=== PATIENT | female | born 1950 | race Caucasian/White ===

== ENCOUNTER → 2017-08-09 | Outpatient (CLI) | payer BC ==
--- NOTE | 2017-08-09 19:04 | US ---
EXAMINATION TYPE: US transvaginal DATE OF EXAM: 08/09/2017 COMPARISON: CT 2010 CLINICAL HISTORY: Other ovaian cyst right side N83.291. Pt states ovarian cyst seen on outside MRI, p t not on HRT's TECHNIQUE: Transvaginal (TV). Date of LMP: Age 51 EXAM MEASUREMENTS: Uterus: 4.7 x 2.5 x 3.7 cm Endometrial Stripe: 0.3 cm 1. Uterus: Anteverted wnl, postmenopausal 2. Endometrium: wnl, postmenopausal 3. Right Ovary: Unable to visualize 4. Left Ovary: Unable to visualize 5. Bilateral Adnexa: Cystic mass right adnexa= 5.9 x 4.5 x 4.6 cm, most likely arising from right ov kristofer 6. Posterior cul-de-sac: wnl Probable right ovarian cyst IMPRESSION: 1. There is a large cystic mass in the right adnexa suggestive of a cystic mass which has a simple ap pearance. Given the large size is difficult to define the anatomy and confirm its a ovarian etiology, therefore, would recommend follow-up MRI of the pelvis.
== END | disposition home or self-care (01) ==
LOC: RADUSWWP 16:56
PROVIDERS: ATTEND Internal Medicine Geriatric Medicine
DX: R19.09 Other intra-abdominal and pelvic swelling, mass and lump (principal)
CPT/HCPCS: 76830

== ENCOUNTER → 2017-09-25 | Outpatient (CLI) | payer MEDICARE, BC ==
--- NOTE | 2017-09-25 19:03 | BD ---
EXAMINATION TYPE: MG DEXA axial skeleton. DATE OF EXAM: 09/25/2017 CLINICAL HISTORY: 67-year-old female osteoporosis Height: Weight: 165 FRAX RISK QUESTIONS: Alcohol (3 or more units per day): no Family History (Parent hip fracture): no Glucocorticoids (More than 3mos): no (Ex: prednisone, prednisolone, methylprednisolone, dexamethasone, and hydrocortisone). History of Fracture in Adulthood: yes, humerus about 20 years ago Secondary Osteoporosis: 1. Type 1 Diabetes: no 2. Hyperthyroidism: no 3. Menopause before 45: no 4. Malnutrition: no 5. Chronic liver disease: no Rheumatoid Arthritis: no Current Tobacco Use: no RISK FACTORS HISTORY OF: Family History of Osteoporosis: no Active: yes Diet low in dairy products/other sources of calcium: several times a week Postmenopausal woman: yes Take estrogen and/or progesterone medications: not now How long: hormonal contraceptives for about 10 years Lost more than 2 inches in height since high school: no Frequent falls: no Poor Health: no Hyperparathyroidism: no Adrenal Insufficiency: no MEDICATIONS: Prednisone or other steroids: no Thyroid Medications: no Osteoporosis Medications: no Additional Medications: blood pressure meds Additional History: EXAM MEASUREMENTS: Bone mineral densitometry was performed using the [employer]. Bone mineral density as measured about the Lumbar spine is: ----- L1-L4(G/cm2): 1.797 T Score Values are as follows: ----- L2: 7.4 ----- L3: 6.7 ----- L4: 3.4 ----- L1-L4: 5.1 Bone mineral density has: Increased 1.1% since study of: 08/07/2011 Bone mineral density about the R hip (g/cm2): 0.746 Bone mineral density about the L hip (g/cm2): 0.753 T Score values are as follows: -----R Neck: -2.1 -----L Neck: -2.1 -----R Total: -1.7 -----L Total: -1.9 Bone mineral density has: Decreased -17.5% since study of: 08/07/2011 IMPRESSION: Osteopenia (T Score between -2.5 and -1). There is slightly increased risk of fracture and the patient may be considered for treatment. Re-Screen 2-5 years. NOTE: T-SCORE=SD OF THE YOUNG ADULT MEAN.
--- NOTE | 2017-10-03 08:52 | MM ---
Reason for exam: screening (asymptomatic). Last mammogram was performed 4 years and 4 months ago. History: Patient is postmenopausal and had first child at age 35. Family history of breast cancer in mother. Physical Findings: A clinical breast exam by your physician is recommended on an annual basis and results should be correlated with mammographic findings. MG 3D Screening Mammo W/Cad Bilateral CC, MLO, and XCCL view(s) were taken. Prior study comparison: June 03, 2013, mammogram, performed at [facility]. September 20, 2010, mammogram, performed at [facility]. There are scattered fibroglandular densities. There are typically benign round calcifications in both breasts. There is no discrete abnormality. ASSESSMENT: Benign, BI-RAD 2 RECOMMENDATION: Routine screening mammogram of both breasts in 1 year.
== END | disposition home or self-care (01) ==
LOC: RADMAMWWP 10:00
PROVIDERS: ATTEND Internal Medicine Geriatric Medicine
DX: Z12.31 Encounter for screening mammogram for malignant neoplasm of breast (principal); M85.80 Other specified disorders of bone density and structure, unspecified site
CPT/HCPCS: 77063; 77067; 77080

== ENCOUNTER 2017-11-01 07:57 | Day surgery (SDC) | payer BC, MEDICARE ==
[2017-10-30 11:45] VITALS: BMI 30.2
[~2017-11-01 07:57] MED LIST: LACTATED RINGERS 1,000 ML IV SCH
[2017-11-01 08:38] VITALS: RESP 16; TEMP 97.6
[2017-11-01] MEDS ORDERED: LIDOCAINE 1% 20 ML VIAL (10MG/ML) FOR IV START INTRADERMA ONE (08:44)
[2017-11-01] MEDS ORDERED: LIDOCAINE 1% INJ 10MG/ML (20 ML MDV) ONE (09:35)
[2017-11-01] MEDS ORDERED: PROPOFOL 10 MG/ML 20 ML VIAL IV ONE (09:35)
--- NOTE | 2017-11-01 09:38 | P.GSHP ---
History of Present Illness H&P Date: 11/01/17 Chief Complaint: Anemia This is a 67-year-old female who presents today for EGD colonoscopy. Patient has had issues with anemia. Past Medical History Past Medical History: GERD/Reflux, Hypertension Additional Past Medical History / Comment(s): stomach ulcers x2 in 2016, current anemia History of Any Multi-Drug Resistant Organisms: None Reported Past Surgical History: Bariatric Surgery, Cholecystectomy, Orthopedic Surgery, Tonsillectomy Additional Past Surgical History / Comment(s): gastric sleeve in 2009, EGD, ORIF right arm Past Anesthesia/Blood Transfusion Reactions: Motion Sickness Smoking Status: Never smoker - Past Family History Mother Family Medical History: Cancer Additional Family Medical History / Comment(s): breast Medications and Allergies Home Medications Medication Instructions Recorded Confirmed Type Cholecalciferol [Vitamin D3] 2,000 unit PO BID 12/26/15 11/01/17 History Hydrochlorothiazide 25 mg PO DAILY 12/26/15 11/01/17 History L.acidoph,Paracasei, B.lactis 1 each PO DAILY 12/26/15 10/30/17 History [Probiotic] Magnesium 200 mg PO DAILY 12/26/15 11/01/17 History Oxybutynin Chloride 5 mg PO BID 12/26/15 11/01/17 History Potassium 99 mg PO DAILY 12/26/15 11/01/17 History Vitamin E 1,000 unit PO DAILY 12/26/15 11/01/17 History Omeprazole 40 mg PO AC-BRKFST #30 cap 01/10/16 11/01/17 Rx Calcium Carbonate [Calcium] 600 mg PO DAILY 10/30/17 11/01/17 History Celecoxib [CeleBREX] 200 mg PO DAILY 10/30/17 11/01/17 History Ferrous Sulfate [Feosol] 325 mg PO DAILY 10/30/17 10/30/17 History Allergies Allergy/AdvReac Type Severity Reaction Status Date / Time No Known Allergies Allergy Verified 10/30/17 11:42 Surgical - Exam Vital Signs Temp Pulse Resp BP Pulse Ox 97.6 F 66 16 167/94 98 11/01/17 08:36 11/01/17 08:36 11/01/17 08:36 11/01/17 08:36 11/01/17 08:36 - General well developed, no distress - Eyes PERRL - ENT normal pinna - Neck no masses - Respiratory normal expansion - Cardiovascular Rhythm: regular - Abdomen Abdomen: soft, non tender Assessment and Plan Assessment: Anemia. We'll perform EGD and colonoscopy.
--- NOTE | 2017-11-01 10:17 | P.OP ---
Date of Procedure: 11/01/17 Preoperative Diagnosis: Anemia Postoperative Diagnosis: Antral gastritis Normal colon No evidence of GI bleed Procedure(s) Performed: EGD Colonoscopy Anesthesia: MAC Surgeon: Carlos Manuel Cabrera Pathology: other (Antrum) Condition: stable Disposition: PACU Description of Procedure: Patient's placed on the endoscopy table in the lateral position. She received IV sedation. The gastroscope placed oropharynx passed in the esophagus and stomach. The patient a previous sleeve yesterday. Scope was then placed in the antrum and through the pylorus. The first second portion duodenum appeared normal. There is known to any inflammation or blood in the duodenum. The scope was then brought back and the antrum and this was minimal inflamed. A biopsies performed. The scope was then brought back through the gastric sleeve. There is known to any ulceration of the stomach. The GE junction was at 40 cm. The distal esophagus appeared normal. The proximal esophagus appeared normal. Scope was withdrawn for patient. Next digital rectal exam was performed which revealed no significant abnormalities. Flexible colonoscope was then placed patient anus passed throughout the entire colon. The ileocecal valve was visualized. The cecum, ascending and transverse colon appeared normal. The descending and; appeared normal. Scope withdrawn for patient.
[2017-11-01 10:53] VITALS: BP 179/81; PULSE 60
== END 2017-11-01 11:03 | disposition home or self-care (01) ==
LOC: ORWHC2ENDO 07:57
PROVIDERS: ATTEND Surgery
DX: K29.50 Unspecified chronic gastritis without bleeding (principal); D64.9 Anemia, unspecified; Z90.3 Acquired absence of stomach [part of]; Z98.84 Bariatric surgery status; K21.9 Gastro-esophageal reflux disease without esophagitis; I10 Essential (primary) hypertension; R42 Dizziness and giddiness; R60.9 Edema, unspecified; N39.42 Incontinence without sensory awareness; E55.9 Vitamin D deficiency, unspecified; E78.00 Pure hypercholesterolemia, unspecified; I45.9 Conduction disorder, unspecified; E66.3 Overweight; Z68.30 Body mass index [BMI] 30.0-30.9, adult; Z78.0 Asymptomatic menopausal state; Z79.899 Other long term (current) drug therapy
CPT/HCPCS: 88305; 45378; 43239; J2001; J2704

== ENCOUNTER 2018-06-22 22:26 | Emergency (ER) | payer BC ==
--- NOTE | 2018-06-22 23:22 | ED ---
General Adult HPI - General Source: patient, EMS, RN notes reviewed Mode of arrival: EMS Limitations: altered mental status <Smooth Moreira P - Last Filed: 06/23/18 20:08> <Minoo Alves P - Last Filed: 06/24/18 03:20> - General Chief complaint: Alcohol Stated complaint: ETOH - History of Present Illness Initial comments: 67-year-old female presents to the emergency department for a chief complaint of alcohol intoxication. Apparently patient's son called an ambulance on her. According to EMS patient did not want any treatment but they did not have anyone to release her to on scene so brought her to the emergency department. Patient states she would just like to go home. She states she is feeling fine. She states she drinks about 3 times per week. Patient denies any suicidal or homicidal thoughts. Patient does not want an IV. Patient has no other complaints at this time including shortness of breath, chest pain, abdominal pain, nausea or vomiting, headache, or visual changes. (Smooth Moreira) - Related Data Home Medications Medication Instructions Recorded Confirmed Hydrochlorothiazide 25 mg PO DAILY 12/26/15 06/22/18 Oxybutynin Chloride 5 mg PO BID 12/26/15 06/22/18 Celecoxib [CeleBREX] 200 mg PO BID 10/30/17 06/22/18 Gabapentin [Neurontin] 300 mg PO DAILY 06/22/18 06/22/18 Methocarbamol [Robaxin] 500 mg PO BID 06/22/18 06/22/18 Omeprazole 40 mg PO DAILY 06/22/18 06/22/18 amLODIPine [Norvasc] 5 mg PO DAILY 06/22/18 06/22/18 Allergies Allergy/AdvReac Type Severity Reaction Status Date / Time No Known Allergies Allergy Verified 06/22/18 23:15 Review of Systems ROS Other: All systems not noted in ROS Statement are negative. <Smooth Moreira P - Last Filed: 06/23/18 20:08> ROS Other: All systems not noted in ROS Statement are negative. <Minoo Alves P - Last Filed: 06/24/18 03:20> ROS Statement: Those systems with pertinent positive or pertinent negative responses have been documented in the HPI. Past Medical History Past Medical History: GERD/Reflux, Hypertension Additional Past Medical History / Comment(s): stomach ulcers x2 in 2016, current anemia History of Any Multi-Drug Resistant Organisms: None Reported Past Surgical History: Bariatric Surgery, Cholecystectomy, Orthopedic Surgery, Tonsillectomy Additional Past Surgical History / Comment(s): gastric sleeve in 2010, EGD, ORIF right arm Past Anesthesia/Blood Transfusion Reactions: Motion Sickness Past Psychological History: No Psychological Hx Reported Smoking Status: Never smoker Past Alcohol Use History: Occasional Past Drug Use History: None Reported - Past Family History Mother Family Medical History: Cancer Additional Family Medical History / Comment(s): breast <Smooth Moreira P - Last Filed: 06/23/18 20:08> General Exam Limitations: altered mental status General appearance: alert, in no apparent distress (Sitting up in bed well appearing, answering questions, alert, cooperative and responsive) Head exam: Present: atraumatic, normocephalic, normal inspection Eye exam: Present: normal appearance, PERRL, EOMI. Absent: scleral icterus, conjunctival injection, periorbital swelling ENT exam: Present: normal exam, normal oropharynx, mucous membranes moist, TM's normal bilaterally, normal external ear exam Neck exam: Present: normal inspection, full ROM. Absent: tenderness, meningismus, lymphadenopathy Respiratory exam: Present: normal lung sounds bilaterally. Absent: respiratory distress, wheezes, rales, rhonchi, stridor Cardiovascular Exam: Present: regular rate, normal rhythm, normal heart sounds. Absent: systolic murmur, diastolic murmur, rubs, gallop, clicks GI/Abdominal exam: Present: soft, normal bowel sounds. Absent: distended, tenderness, guarding, rebound, rigid Neurological exam: Present: alert, oriented X3, CN II-XII intact Psychiatric exam: Present: normal affect, normal mood. Absent: homicidal ideation, suicidal ideation Skin exam: Present: warm, dry, intact, normal color. Absent: rash <Smooth Moreira P - Last Filed: 06/23/18 20:08> Vital Signs 06/22/18 06/23/18 06/23/18 22:32 02:26 05:00 Temperature 98.3 F 97.9 F Pulse Rate 70 91 99 Respiratory 19 15 18 Rate Blood Pressure 150/111 145/90 150/98 O2 Sat by Pulse 98 98 94 L Oximetry Medical Decision Making <Smooth Moreira P - Last Filed: 06/23/18 20:08> <Minoo Alves - Last Filed: 06/24/18 03:20> - Medical Decision Making 67-year-old female with a past medical history of hypertension, stomach ulcers, anemia presents to the emergency department for a chief complaint of Alcohol intoxication. Patient did not want to come to the hospital but the EMS did not have anyone to release her to sober her to the emergency department. Patient is pleasant and cooperative. Patient states she is ready to go home. No evidence of withdrawals or shaking. Patient is drinking water here in the emergency department and resting comfortably. Patient does not want an IV at this time. ETOH 0.212. Patient will be held in the emergency department until sober and released. (Smooth Moreira) Patient was reevaluated at 5 AM. Patient able to ambulate to the restroom independently. Patient with clear speech. Patient is clinically sober and based on her breath alcohol is sober at this time. Patient discharged home patient reported she had the means to pay for a taxi for her ride home. (Minoo Alves) Disposition Is patient prescribed a controlled substance at d/c from ED?: No Time of Disposition: 23:20 <Smooth Moreira - Last Filed: 06/23/18 20:08> Is patient prescribed a controlled substance at d/c from ED?: No <Minoo Alves - Last Filed: 06/24/18 03:20> Clinical Impression: Alcoholic intoxication Disposition: HOME SELF-CARE Condition: Good Instructions (If sedation given, give patient instructions): Alcohol Intoxication (ED), Alcohol Withdrawal (ED) Additional Instructions: Please follow up with primary care in 1-2 days. Please return to the emergency department if you have any worsening symptoms. Referrals: Kaleb Nicolas MD [Primary Care Provider] - 1-2 days
[2018-06-23 05:01] VITALS: BP 150/98; PULSE 99; RESP 18; TEMP 97.9
== END 2018-06-23 05:15 | disposition home or self-care (01) ==
LOC: EC 22:26
DX: F10.129 Alcohol abuse with intoxication, unspecified (principal); K21.9 Gastro-esophageal reflux disease without esophagitis; I10 Essential (primary) hypertension; Z79.899 Other long term (current) drug therapy; Z98.84 Bariatric surgery status
CPT/HCPCS: 82075; 99284

== ENCOUNTER → 2022-09-17 | Outpatient (CLI) | payer MEDICARE, BC ==
[~2022-09-17] MED LIST changes: +DENOSUMAB 60 MG/ML 1 ML SYRINGE SQ NR; -LACTATED RINGERS 1,000 ML IV SCH
[2022-09-17 10:28] VITALS: BP 143/87; PULSE 90; RESP 16; TEMP 98
== END ==
LOC: PROCWHC3 10:11
PROVIDERS: ATTEND Internal Medicine Geriatric Medicine
DX: M81.0 Age-related osteoporosis without current pathological fracture (principal)
CPT/HCPCS: 96372; J0897

== ENCOUNTER → 2023-03-29 | Outpatient (CLI) | payer MEDICARE, BC ==
[2023-03-29 13:23] VITALS: BP 134/77; PULSE 109; RESP 15; TEMP 97.7
== END ==
LOC: PROCWHC3 12:58
PROVIDERS: ATTEND Internal Medicine Geriatric Medicine
DX: M81.0 Age-related osteoporosis without current pathological fracture (principal)
CPT/HCPCS: 96372; J0897

== ENCOUNTER 2023-09-23 12:57 | Day surgery (SDC) | payer MEDICARE ==
[2023-09-20 09:39] VITALS: BMI 25.6
[2023-09-23] MEDS: LACTATED RINGERS 1,000 ML IV SCH (13:38)
[2023-09-23 13:51] VITALS: RESP 16; TEMP 97.1
[2023-09-23] MEDS ORDERED: PROPOFOL 10 MG/ML 20 ML VIAL IV ONE (14:06)
[2023-09-23] MEDS ORDERED: LIDOCAINE 1% INJ 10MG/ML (20 ML MDV) ONE (14:06)
--- NOTE | 2023-09-23 14:11 | P.GSHP ---
History of Present Illness H&P Date: 09/23/23 Chief Complaint: GERD is a 73-year-old female placed of GERD. Patient presents for EGD. EGD. Past Medical History Past Medical History: GERD/Reflux, Hypertension Additional Past Medical History / Comment(s): stomach ulcers x2 in 2015, current anemia History of Any Multi-Drug Resistant Organisms: None Reported Past Surgical History: Back Surgery, Bariatric Surgery, Cholecystectomy, Orthopedic Surgery, Tonsillectomy Additional Past Surgical History / Comment(s): gastric sleeve in 2009, EGD, ORIF right arm. L2-L5 repair 2022. Past Anesthesia/Blood Transfusion Reactions: No Reported Reaction, Motion Sickness Smoking Status: Never smoker - Past Family History Mother Family Medical History: Cancer Additional Family Medical History / Comment(s): breast Medications and Allergies Home Medications Medication Instructions Recorded Confirmed Type Oxybutynin Chloride 5 mg PO BID 12/26/15 09/20/23 History Omeprazole 40 mg PO DAILY 06/22/18 09/20/23 History amLODIPine [Norvasc] 5 mg PO DAILY 06/22/18 09/20/23 History Allergies Allergy/AdvReac Type Severity Reaction Status Date / Time No Known Allergies Allergy Verified 09/23/23 13:31 Surgical - Exam Vital Signs Temp Pulse Resp BP Pulse Ox 97.1 F L 92 16 145/82 97 09/23/23 13:28 09/23/23 13:28 09/23/23 13:28 09/23/23 13:28 09/23/23 13:28 - General well developed, well nourished, no distress - Eyes PERRL - ENT normal pinna - Neck no masses - Respiratory normal expansion - Cardiovascular Rhythm: regular - Abdomen Abdomen: soft, non tender Assessment and Plan Assessment: GERD. We'll perform EGD.
--- NOTE | 2023-09-23 14:18 | P.OP ---
Date of Procedure: 09/23/23 Preoperative Diagnosis: GERD Postoperative Diagnosis: antral gastritis Procedure(s) Performed: EGD Anesthesia: MAC Pathology: other (antrum) Disposition: PACU Description of Procedure: the patient's placed on the endoscopy table in the lateral position. She received IV sedation. The gastroscope some placed oropharynx passed in the esophagus and then into the stomach. Scope was placed through the pylorus. The first and second portion of duodenum appeared normal. Scope was then brought back the antrum this appeared mildly inflamed. Biopsies performed. Scope summer back and stomach. Patient previous gastric sleeve. The stomach appeared normal. The GE junction was at 40 cm. The distal esophagus. Normal. The proximal esophagus appeared normal. The scope was withdrawn from patient
[2023-09-23 15:19] VITALS: BP 131/89; PULSE 72
== END 2023-09-23 15:00 | disposition home or self-care (01) ==
LOC: ORWHC2ENDO 12:57
PROVIDERS: ATTEND Surgery
DX: K29.50 Unspecified chronic gastritis without bleeding (principal); K21.9 Gastro-esophageal reflux disease without esophagitis; I10 Essential (primary) hypertension; Z90.49 Acquired absence of other specified parts of digestive tract; Z98.84 Bariatric surgery status; Z79.899 Other long term (current) drug therapy
CPT/HCPCS: 88305; 43239; J2001; J2704

== ENCOUNTER → 2023-09-30 | Outpatient (CLI) | payer MEDICARE ==
[2023-09-30 12:07] VITALS: BP 141/81; PULSE 100; RESP 14; TEMP 99.1; BMI 25.4
--- NOTE | 2023-10-01 11:47 | P.HPBAR ---
Bariatric H&P - History & Physicial H&P Date: 10/01/23 History & Physicial: Visit/CC: follow up visit with dr. jain post egd Patient initial contact: Initial weight: 113.398 kg Initial weight in pounds: 250.00 Height: 5 ft 1.5 in Initial BMI: 46.4 Last weight: Current weight: 62.006 kg Current weight in pounds: 136.70 Current BMI: 25.4 [place] body weight (based on NIH guidelines): 48.761 kg Excess body weight loss: 79.5% The patient is a 73 year-old F who presents for Bariatric Assessment.patient resents today for Benz fall. Patient has some complaints of GERD. She underwent recent EGD. Patient states she feels better. Her GERD is improved. Past Medical History Past Medical History: GERD/Reflux, Hypertension Additional Past Medical History / Comment(s): stomach ulcers x2 in 2015, current anemia History of Any Multi-Drug Resistant Organisms: None Reported Past Surgical History: Back Surgery, Bariatric Surgery, Cholecystectomy, Orthopedic Surgery, Tonsillectomy Additional Past Surgical History / Comment(s): gastric sleeve in 2009, EGD, ORIF right arm. L2-L5 repair 2022. Past Anesthesia/Blood Transfusion Reactions: No Reported Reaction, Motion Sickness Past Psychological History: No Psychological Hx Reported Smoking Status: Never smoker Past Alcohol Use History: Occasional Past Drug Use History: None Reported - Past Family History Mother Family Medical History: Cancer Additional Family Medical History / Comment(s): breast Surgical - Exam Vital Signs Temp Pulse Resp BP 99.1 F 100 14 141/81 09/30/23 11:05 09/30/23 11:05 09/30/23 11:05 09/30/23 11:05 - General well developed, well nourished, no distress - Eyes PERRL - ENT normal pinna - Neck no masses - Respiratory normal expansion - Cardiovascular Rhythm: regular - Abdomen Abdomen: soft, non tender Bariatric Assessment & Plan Plan: resolving GERD. Patient has an excellent weight loss. The patient will be observed. She'll follow-up in 12 weeks. Bariatric Checklist Checklist: Plan: Checklist: EGD: 1. Hiatal hernia: 2. H. Pylori: HgbA1c: Vitamin D: Smoking: Never smoker Primary care physician referral: Dr. Nicolas Psychiatry clearance: Cardiology clearance: Sleep study: Diet journal: VTE risk score: VTE risk level: Rehab needs at discharge:
== END ==
LOC: BARWHC3 10:47
PROVIDERS: ATTEND Surgery
DX: K21.9 Gastro-esophageal reflux disease without esophagitis (principal); R63.4 Abnormal weight loss; Z98.84 Bariatric surgery status; Z90.3 Acquired absence of stomach [part of]; Z68.25 Body mass index [BMI] 25.0-25.9, adult
CPT/HCPCS: 99211

== ENCOUNTER → 2023-09-30 | Outpatient (CLI) | payer BC, MEDICARE ==
[2023-09-30] MEDS: DENOSUMAB 60 MG/ML 1 ML SYRINGE SQ NR (11:47)
[2023-09-30 12:06] VITALS: BP 148/79; PULSE 82; RESP 14; TEMP 97.6
== END ==
LOC: PROCWHC3 11:32
PROVIDERS: ATTEND Internal Medicine Geriatric Medicine
DX: M81.0 Age-related osteoporosis without current pathological fracture (principal)
CPT/HCPCS: 96372; J0897

== ENCOUNTER → 2023-12-23 | Outpatient (CLI) | payer MEDICARE ==
[2023-12-23 10:13] VITALS: BP 129/81; PULSE 96; RESP 16; TEMP 98.8; BMI 27.5
[2023-12-23 17:20] LABS: HCT 39.3 % (37.2-46.3); HGB 12.7 g/dL (12.0-15.0); MCHC 32.3 g/dL (32.0-37.0); MCV 102.1 FL (80.0-97.0); Mean Platelet Volume 10.1 FL (9.5-12.2); NRBC Per 100 WBC 0.02 X 10*3/uL (0.00-0.01); Platelet Count 635 X 10*3/uL (140-440); RBC 3.85 X 10*6/uL (4.10-5.20); RDW 18.1 % (11.5-14.5); WBC 4.56 X 10*3/uL (4.50-10.00)
[2023-12-23 17:47] LABS: % Iron Saturation 10.09 (12.00-45.00); ALT 16 U/L (8-44); AST 32 U/L (13-35); Albumin 3.9 g/dL (3.8-4.9); Alkaline Phosphatase 112 U/L (41-126); Blood Urea Nitrogen 12.6 mg/dL (9.0-27.0); Calcium 8.5 mg/dL (8.7-10.3); Chloride 103 mmol/L (96-109); Ferritin 78.3 ng/mL (10.0-291.0); Globulin 2.6 g/dL (1.6-3.3); Glucose 66 mg/dL (70-110); Iron 34 UG/DL (50-170); Magnesium 2.1 mg/dL (1.5-2.4); Potassium 4.6 mmol/L (3.5-5.5); Sodium 140 mmol/L (135-145); Total Bilirubin <0.2 mg/dL (0.3-1.2); Total Iron Binding Capacity 337 UG/DL (228-460); Total Protein 6.5 g/dL (6.2-8.2)
[2023-12-24 13:04] LABS: Zinc, Serum 50 ug/dL (60-130)
[2023-12-25 06:02] LABS: Vitamin A 73 ug/dL (38-106)
[2023-12-25 12:36] LABS: Vit B1(Thiamine) 37 ug/L (38-122)
--- NOTE | 2023-12-26 16:20 | P.HPBAR ---
Bariatric H&P - History & Physicial H&P Date: 12/23/23 History & Physicial: Visit/CC: follow up Patient initial contact: Initial weight: 113.398 kg Initial weight in pounds: 250.00 Height: 5 ft 1.5 in Initial BMI: 46.4 Last weight: Current weight: 67.132 kg Current weight in pounds: 148.00 Current BMI: 27.5 [place] body weight (based on NIH guidelines): 48.761 kg Excess body weight loss: 71.5% The patient is a 73 year-old F who presents for Bariatric Assessment. Patient presents today for bariatric follow-up. She has been doing fairly well. She is gained 8 pounds her last visit. She has minimal plaints of gerd. Past Medical History Past Medical History: GERD/Reflux, Hypertension Additional Past Medical History / Comment(s): stomach ulcers x2 in 2015, current anemia History of Any Multi-Drug Resistant Organisms: None Reported Past Surgical History: Back Surgery, Bariatric Surgery, Cholecystectomy, Orthopedic Surgery, Tonsillectomy Additional Past Surgical History / Comment(s): gastric sleeve in 2009, EGD, ORIF right arm. L2-L5 repair 2022. Past Anesthesia/Blood Transfusion Reactions: No Reported Reaction Past Psychological History: No Psychological Hx Reported Smoking Status: Never smoker Past Alcohol Use History: Occasional Past Drug Use History: None Reported - Past Family History Mother Family Medical History: Cancer Additional Family Medical History / Comment(s): breast Surgical - Exam Vital Signs Temp Pulse Resp BP 98.8 F 96 16 129/81 12/23/23 10:02 12/23/23 10:02 12/23/23 10:02 12/23/23 10:02 - General well developed, well nourished - Neck no masses - Abdomen Abdomen: soft, non tender Results - Labs 12/23/23 11:03 12/23/23 11:03 Bariatric Assessment & Plan Plan: Patient is doing fairly well overall. Her gerd is minimal and will be observed. She will follow-up in 4 weeks. Bariatric Checklist Checklist: Plan: Checklist: EGD: 1. Hiatal hernia: 2. H. Pylori: HgbA1c: Vitamin D: Smoking: Never smoker Primary care physician referral: Dr. Nicolas Psychiatry clearance: Cardiology clearance: Sleep study: Diet journal: VTE risk score: VTE risk level: Rehab needs at discharge:
[2024-01-22 15:00] LABS: Selenium 117 mcg/L (63-160)
== END ==
LOC: BARWHC3 09:57
PROVIDERS: ATTEND Surgery
DX: E66.01 Morbid (severe) obesity due to excess calories (principal); K21.9 Gastro-esophageal reflux disease without esophagitis; D50.8 Other iron deficiency anemias; E55.9 Vitamin D deficiency, unspecified; T56.894A Toxic effect of other metals, undetermined, initial encounter; K90.9 Intestinal malabsorption, unspecified; Z68.27 Body mass index [BMI] 27.0-27.9, adult
CPT/HCPCS: 84255; 84425; 80053; 82607; 82728; 82746; 83540; 83550; 83735; 84443; 84590; 84630; 85027; 82306; G0463; 99211

== ENCOUNTER → 2024-01-22 | Outpatient (CLI) | payer MEDICARE ==
--- NOTE | 2024-01-22 13:48 | US ---
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 Intermittent left leg pain History of: Smoker: no Hypertension: yes Diabetic: no Hyperlipidemia: no TIA/CVA: no Previous Vascular Surgery: no MN: no Vascular Ulcers: yes Claudication: no Gangrene: no Doppler Waveforms: Right: Multiphasic Left: Multiphasic Right Brachial Pressure: 132 Left Brachial Pressure: 129 Ankle-Brachial Indices: Right: 1.21 Left: 1.15 (Vessel hardening > 1.4; Normal 0.9 - 1.4, Moderate 0.7 - 0.9, Severe 0.5-0.7) Toe Brachial Indices: Right: 0.67 Left: 0.62 IMPRESSION: Normal bilateral THONG.
== END | disposition home or self-care (01) ==
LOC: RADUSWWP 11:56
PROVIDERS: ATTEND Thoracic Surgery (Cardiothoracic Vascular Surgery)
DX: L92.2 Granuloma faciale [eosinophilic granuloma of skin]
CPT/HCPCS: 93922

== ENCOUNTER → 2024-03-04 | Outpatient (CLI) | payer MEDICARE ==
[2024-03-04 18:31] LABS: Basophils # (A) 0.07 X 10*3/uL (0.00-0.10); Basophils % (A) 1.1 %; Eosinophils # (A) 0.08 X 10*3/uL (0.04-0.35); Eosinophils % (A) 1.2 %; HCT 36.7 % (37.2-46.3); HGB 12.2 g/dL (12.0-15.0); Lymphocytes # (A) 1.06 X 10*3/uL (0.90-5.00); Lymphocytes % (A) 15.9 %; MCH 32.7 pg (27.0-32.0); MCHC 33.2 g/dL (32.0-37.0); MCV 98.4 FL (80.0-97.0); Mean Platelet Volume 10.2 FL (9.5-12.2); Monocytes # (A) 0.52 X 10*3/uL (0.20-1.00); Monocytes % (A) 7.8 %; NRBC Per 100 WBC 0.03 X 10*3/uL (0.00-0.01); Neutrophils % (A) 73.7 %; Platelet Count 628 X 10*3/uL (140-440); RBC 3.73 X 10*6/uL (4.10-5.20); RDW 20.4 % (11.5-14.5); WBC 6.65 X 10*3/uL (4.50-10.00)
[2024-03-04 18:47] LABS: Protein, Total 5.9 g/dL (6.2-8.2)
[2024-03-04 19:09] LABS: ALT 24 U/L (8-44); AST 47 U/L (13-35); Blood Urea Nitrogen 8.3 mg/dL (9.0-27.0); Calcium 8.9 mg/dL (8.7-10.3); Chloride 100 mmol/L (96-109); Creatine Kinase 37 U/L (26-186); Glucose 73 mg/dL (70-110); Magnesium 1.8 mg/dL (1.5-2.4); Phosphorus 3.8 mg/dL (2.4-5.1); Sodium 138 mmol/L (135-145); T4, Free (Free Thyroxine) 1.05 ng/dL (0.80-1.80)
[2024-03-04 19:54] LABS: Erythrocyte Sedimentation Rate 4 mm/Hr (0-30)
[2024-03-04 20:16] LABS: Anti-DNA, DS unit <1.0 IU/mL; Anti-Smith Ab Interp Negative (Negative); DNA Double-Stranded Negative (Negative)
[2024-03-05 07:45] LABS: Angiotensin-1 Converting Enz. 53 U/L (8-52)
[2024-03-05 12:31] LABS: West Nile Virus IgM Antibody 0.05 INDEX (<0.90)
[2024-03-05 12:53] LABS: C-ANCA <1:20 Titer (<1:20)
== END | disposition home or self-care (01) ==
LOC: LABWHC1 13:07
PROVIDERS: ATTEND Psychiatry & Neurology Neurology
DX: R53.1 Weakness (principal)
CPT/HCPCS: 36415; 80051; 82085; 82164; 82310; 82550; 82565; 82607; 82746; 82947; 83036; 83735; 84100; 84165; 84439; 84443; 84450; 84460; 84520; 85025; 85652; 86038; 86225; 86235; 86255; 86334; 86618; 86780; 86788; 86789

== ENCOUNTER 2024-03-16 15:13 | Inpatient (IN) | payer MEDICARE ==
--- NOTE | 2024-03-16 15:51 | ED ---
Weakness HPI - General Source: patient, EMS, RN notes reviewed Mode of arrival: EMS Limitations: no limitations <Natalie Mcmullen - Last Filed: 03/16/24 22:05> <Jazmín Cevallos - Last Filed: 03/17/24 03:23> - General Chief complaint: Weakness Stated complaint: Weakness Time Seen by Provider: 03/16/24 15:47 - History of Present Illness Initial comments: 73-year-old female presented to ER via EMS with a chief complaint of weakness, imbalance and fatigue. She states has been ongoing for the past couple of months. She reports she is scheduled for an MRI of her spine and brain on Saturday due to this and she is following up with a neurosurgeon. She states within the past week she has had an increase of shortness of breath especially with exertion. No history of heart failure does not wear oxygen at home. Denies orthopnea. She also reports past couple days she has been having a racing heart with exertion. Patient states she had an appoint with Dr. Cabrera today but cancelled due to the weakness.Denies any dizziness, lightheadedness or chest discomfort. She denies any cough, congestion, nausea, vomiting, abdominal pain, constipation/diarrhea or urinary complaints. (Natalie Mcmullen) - Related Data Home Medications Medication Instructions Recorded Confirmed Mirabegron [Myrbetriq] 25 mg PO DAILY 03/16/24 03/16/24 Pantoprazole [Protonix] 40 mg PO DAILY 03/16/24 03/16/24 hydroCHLOROthiazide 12.5 mg PO DAILY 03/16/24 03/16/24 Allergies Allergy/AdvReac Type Severity Reaction Status Date / Time No Known Allergies Allergy Verified 03/16/24 16:07 Review of Systems ROS Other: All systems not noted in ROS Statement are negative. <Natalie Mcmullen - Last Filed: 03/16/24 22:05> ROS Other: All systems not noted in ROS Statement are negative. <Jazmín Cevallos - Last Filed: 03/17/24 03:23> ROS Statement: Those systems with pertinent positive or pertinent negative responses have been documented in the HPI. Past Medical History Past Medical History: GERD/Reflux, Hypertension Additional Past Medical History / Comment(s): stomach ulcers x2 in 2016, current anemia History of Any Multi-Drug Resistant Organisms: None Reported Past Surgical History: Back Surgery, Bariatric Surgery, Cholecystectomy, Orthopedic Surgery, Tonsillectomy Additional Past Surgical History / Comment(s): gastric sleeve in 2009, EGD, ORIF right arm. L2-L5 repair 2022. Past Anesthesia/Blood Transfusion Reactions: No Reported Reaction Past Psychological History: No Psychological Hx Reported Smoking Status: Never smoker Past Alcohol Use History: Occasional Past Drug Use History: None Reported - Past Family History Mother Family Medical History: Cancer Additional Family Medical History / Comment(s): breast <Natalie Mcmullen - Last Filed: 03/16/24 22:05> General Exam Limitations: no limitations General appearance: alert, in no apparent distress Respiratory exam: Present: normal lung sounds bilaterally. Absent: respiratory distress, wheezes, rales, rhonchi, stridor Cardiovascular Exam: Present: normal rhythm, tachycardia, normal heart sounds GI/Abdominal exam: Present: soft, normal bowel sounds. Absent: distended, tenderness, guarding, rebound, rigid Extremities exam: Present: normal inspection, full ROM, normal capillary refill. Absent: tenderness, pedal edema, joint swelling, calf tenderness Neurological exam: Present: alert, oriented X3, CN II-XII intact Skin exam: Present: warm, dry, intact, normal color, other (1 cm wound to lateral left calf. No surrounding erythema, purulent drainage or swelling.). Absent: rash <Natalie Mcmullen - Last Filed: 03/16/24 22:05> Course <Natalie Mcmullen - Last Filed: 03/16/24 22:05> Vital Signs 03/16/24 03/16/24 03/16/24 15:19 16:00 17:00 Temperature 97.9 F Pulse Rate 120 H 116 H 111 H Respiratory 20 22 19 Rate Blood Pressure 121/93 119/92 134/87 O2 Sat by Pulse 94 L 79 L 94 L Oximetry 03/16/24 03/16/24 03/16/24 17:30 18:00 18:30 Temperature Pulse Rate 113 H 111 H 112 H Respiratory 17 22 19 Rate Blood Pressure 111/101 127/91 128/110 O2 Sat by Pulse 94 L 94 L 96 Oximetry 03/16/24 03/16/24 03/16/24 19:00 19:48 21:55 Temperature Pulse Rate 115 H 97 109 H Respiratory 24 18 20 Rate Blood Pressure 115/95 111/88 131/93 O2 Sat by Pulse 96 99 100 Oximetry 03/16/24 03/17/24 03/17/24 23:00 00:00 01:00 Temperature Pulse Rate 93 90 88 Respiratory 16 15 17 Rate Blood Pressure 117/91 108/67 105/75 O2 Sat by Pulse 97 99 95 Oximetry 03/17/24 03/17/24 02:00 03:00 Temperature Pulse Rate 89 86 Respiratory 16 15 Rate Blood Pressure 116/79 143/83 O2 Sat by Pulse 97 99 Oximetry - Reevaluation(s) Reevaluation #1: 03/16/24 17:35 Patient reevaluated. No signs of acute distress. 03/16/24 18:53 Patient reevaluated. No signs of acute distress. Vital signs stable. Patient reports that she recently traveled via car from [place] approximately 1 week ago. 03/16/24 18:53 03/16/24 19:[address] Patricia who advised on NPO at midnight and heparin. 03/16/24 19:[address] Nicolas for admission. 03/16/24 19:41 Case discussed by my attending, Dr. Cevallos, with Dr. Mark doss ICU admission. (Natalie Mcmullen) Medical Decision Making - Lab Data Result diagrams: 03/16/24 16:09 03/16/24 16:09 - EKG Data -: EKG Interpreted by De - Radiology Data Radiology results: report reviewed, image reviewed <Natalie Mcmullen - Last Filed: 03/16/24 22:05> - Lab Data Result diagrams: 03/16/24 16:09 03/16/24 16:09 <Jazmín Cevallos - Last Filed: 03/17/24 03:23> - Medical Decision Making Was pt. sent in by a medical professional or institution (, PA, TRANSPORTATION PROGRAM DIRECTOR, urgent care, hospital, or intermediate...) When possible be specific @ -No Did you speak to anyone other than the patient for history (EMS, parent, family, police, friend...)? What history was obtained from this source @ -No Did you review nursing and triage notes (agree or disagree)? Why? @ -I reviewed and agree with nursing and triage notes Were old charts reviewed (outside hosp., previous admission, EMS record, old EKG, old radiological studies, urgent care reports/EKG's, intermediate records)? Report findings @ -No old charts were reviewed Differential Diagnosis (chest pain, altered mental status, abdominal pain women, abdominal pain men, vaginal bleeding, weakness, fever, dyspnea, syncope, headache, dizziness, GI bleed, back pain, seizure, CVA, palpatations, mental health, musculoskeletal)? @ -Differential Weakness: Hypoglycemia, shock, sepsis, hyponatremia, anemia, infection, IL, ETOH, adverse medicine reaction, overdose, stroke, this is not meant to be an all-inclusive list. EKG interpreted by me (3pts min.). @ -As above X-rays interpreted by me (1pt min.). @ -CXR interpreted by me negative for acute cardiopulmonary process. CT interpreted by me (1pt min.). @ -CTA chest showing bilateral pulmonary emboli along with saddle embolus. Moderate to severe scattered burden. Right heart strain. Some interstitial fibrosis of the lung bases. Pulmonary arterial hypertension. Coronary artery calcifications. U/S interpreted by me (1pt. min.). @ -None done What testing was considered but not performed or refused? (CT, X-rays, U/S, labs)? Why? @ -None What meds were considered but not given or refused? Why? @ -None Did you discuss the management of the patient with other professionals (professionals i.e. , PA, TRANSPORTATION PROGRAM DIRECTOR, lab, RT, psych nurse, social worker clinical, industrial manufacturing technician, teacher, ordnance officer, counter caser)? Give summary @ -Yes, case discussed with BANDAR Regan, who advised on n.p.o. at midnight for intervention tomorrow. Case also discussed with Dr. Nicolas for admission. My attending, Dr. Cevallos, discussed case with ICU cns, Dr. Flores for ICU admission. Was smoking cessation discussed for >3mins.? @ -No Was critical care preformed (if so, how long)? @ -No Were there social determinants of health that impacted care today? How? (Homelessness, low income, unemployed, alcoholism, drug addiction, transportation, low edu. Level, literacy, decrease access to med. care, custodial, rehab)? @ -No Was there de-escalation of care discussed even if they declined (Discuss DNR or withdrawal of care, Hospice)? DNR status @ -No What co-morbidities impacted this encounter? (DM, HTN, Smoking, COPD, CAD, Cancer, CVA, ARF, Chemo, Hep., AIDS, mental health diagnosis, sleep apnea, morbid obesity)? @ -None Was patient admitted / discharged? Hospital course, mention meds given and route, prescriptions, significant lab abnormalities, going to OR and other pertinent info. @ -Admitted. 73-year-old female presenting to the ER with a chief complaint of fatigue x 3 days. History and physical exam completed. Vitals upon arrival remarkable for temperature 97.9, tachycardic at 120, respiratory 20, blood pressure 121/93, oxygen saturation 94% on 2 L nasal cannula oxygen. Patient ji s not typically wear nasal cannula oxygen at home. Patient removed from nasal cannula oxygen and had oxygen saturations 89 to 90% on room air. Patient no signs of acute distress and resting comfortably in exam room. Normal lung sounds throughout. No peripheral edema. Laboratory studies obtained showing a D-dimer 6.30 with a troponin of 0.147. BNP 18,400. CTA chest rule out PE ordered at that time. CTA showing bilateral pulmonary embolism along with a saddle embolus. Moderate to severe scattered burden. Right heart strain. Some interstitial fibrosis at the lung bases. Pulmonary arterial hypertension. Coronary artery calcifications. Patient started on high-dose heparin protocol. Case discussed with [facility], Dr. Osorio who advised on n.p.o. at midnight as he plans to intervene tomorrow. Case also discussed with Dr. Nicolas and Dr. Flores for ICU admission. Ultrasound venous Doppler bilateral lower extremities and echocardiogram ordered and pending. Patient remained hemodynamically stable throughout ER stay. Upon reevaluation, patient resting comfortably in exam room. No signs of acute distress. Patient remained tachycardic in 120s. Blood pressure stable at 115/95. Results discussed with patient, all questions answered. Patient agreeable for admission. Case discussed with ED attending, Dr. Cevallos. Undiagnosed new problem with uncertain prognosis? @ -No Drug Therapy requiring intensive monitoring for toxicity (Heparin, Nitro, Insulin, Cardizem)? @ -Yes, heparin Were any procedures done? @ -No Diagnosis/symptom? @ -Saddle pulmonary embolus with right heart strain Acute, or Chronic, or Acute on Chronic? @ -Acute Uncomplicated (without systemic symptoms) or Complicated (systemic symptoms)? @ -Complicated Side effects of treatment? @ -No Exacerbation, Progression, or Severe Exacerbation? @ -No Poses a threat to life or bodily function? How? (Chest pain, USA, IL, pneumonia, PE, COPD, DKA, ARF, appy, cholecystitis, CVA, Diverticulitis, Homicidal, Suicidal, threat to staff... and all critical care pts) @ -Yes, pulmonary embolism can lead to hypoxia and endorgan dysfunction. (Natalie Mcmullen) Critical care time of 40 minutes for identification of saddle PE (Jazmín Cevallos) - Lab Data Lab Results 03/16/24 03/16/24 03/16/24 Range/Units 16:09 16:09 16:09 WBC 8.9 (3.8-10.6) k/uL RBC 4.25 (3.80-5.40) m/uL Hgb 14.6 (11.4-16.0) gm/dL Hct 44.7 (34.0-46.0) % MCV 105.2 H (80.0-100.0) fL MCH 34.2 (25.0-35.0) pg MCHC 32.6 (31.0-37.0) g/dL RDW 18.8 H (11.5-15.5) % Plt Count 286 (150-450) k/uL MPV 9.7 Neutrophils % 81 % Lymphocytes % 12 % Monocytes % 6 % Eosinophils % 0 % Basophils % 0 % Neutrophils # 7.2 (1.3-7.7) k/uL Lymphocytes # 1.0 (1.0-4.8) k/uL Monocytes # 0.5 (0-1.0) k/uL Eosinophils # 0.0 (0-0.7) k/uL Basophils # 0.0 (0-0.2) k/uL Manual Slide Review Performed Poikilocytosis (manual Present Anisocytosis Slight Macrocytosis Marked A Target Cells Present Stomatocytes Present Cruz-Humphreys Bodies Present PT 11.5 (10.0-12.5) sec INR 1.1 (<1.2) APTT 24.2 (22.0-30.0) sec D-Dimer (<0.60) mg/L FEU Sodium 132 L (137-145) mmol/L Potassium 3.3 L (3.5-5.1) mmol/L Chloride 99 (98-107) mmol/L Carbon Dioxide 27 (22-30) mmol/L Anion Gap 6 mmol/L BUN 17 (7-17) mg/dL Creatinine 0.94 (0.52-1.04) mg/dL Est GFR (CKD-EPI)AfAm 70 (>60 ml/min/1.73 sqM) Est GFR (CKD-EPI)NonAf 61 (>60 ml/min/1.73 sqM) Glucose 109 H (74-99) mg/dL Plasma Lactic Acid James (0.7-2.0) mmol/L Calcium 8.7 (8.4-10.2) mg/dL Magnesium 1.7 (1.6-2.3) mg/dL Total Bilirubin 1.1 (0.2-1.3) mg/dL AST 35 (14-36) U/L ALT 17 (4-34) U/L Alkaline Phosphatase 152 H (38-126) U/L Troponin I (0.000-0.034) ng/mL NT-Pro-B Natriuret Pep pg/mL Total Protein 5.8 L (6.3-8.2) g/dL Albumin 3.1 L (3.5-5.0) g/dL Influenza Type A (PCR) (Not Detectd) Influenza Type B (PCR) (Not Detectd) RSV (PCR) (Not Detectd) SARS-CoV-2 (PCR) (Not Detectd) 03/16/24 03/16/24 03/16/24 Range/Units 16:09 16:09 16:09 WBC (3.8-10.6) k/uL RBC (3.80-5.40) m/uL Hgb (11.4-16.0) gm/dL Hct (34.0-46.0) % MCV (80.0-100.0) fL MCH (25.0-35.0) pg MCHC (31.0-37.0) g/dL RDW (11.5-15.5) % Plt Count (150-450) k/uL MPV Neutrophils % % Lymphocytes % % Monocytes % % Eosinophils % % Basophils % % Neutrophils # (1.3-7.7) k/uL Lymphocytes # (1.0-4.8) k/uL Monocytes # (0-1.0) k/uL Eosinophils # (0-0.7) k/uL Basophils # (0-0.2) k/uL Manual Slide Review Poikilocytosis (manual Anisocytosis Macrocytosis Target Cells Stomatocytes Cruz-Humphreys Bodies PT (10.0-12.5) sec INR (<1.2) APTT (22.0-30.0) sec D-Dimer (<0.60) mg/L FEU Sodium (137-145) mmol/L Potassium (3.5-5.1) mmol/L Chloride (98-107) mmol/L Carbon Dioxide (22-30) mmol/L Anion Gap mmol/L BUN (7-17) mg/dL Creatinine (0.52-1.04) mg/dL Est GFR (CKD-EPI)AfAm (>60 ml/min/1.73 sqM) Est GFR (CKD-EPI)NonAf (>60 ml/min/1.73 sqM) Glucose (74-99) mg/dL Plasma Lactic Acid James 2.0 (0.7-2.0) mmol/L Calcium (8.4-10.2) mg/dL Magnesium (1.6-2.3) mg/dL Total Bilirubin (0.2-1.3) mg/dL AST (14-36) U/L ALT (4-34) U/L Alkaline Phosphatase (38-126) U/L Troponin I 0.147 H* (0.000-0.034) ng/mL NT-Pro-B Natriuret Pep pg/mL Total Protein (6.3-8.2) g/dL Albumin (3.5-5.0) g/dL Influenza Type A (PCR) Not Detected (Not Detectd) Influenza Type B (PCR) Not Detected (Not Detectd) RSV (PCR) Not Detected (Not Detectd) SARS-CoV-2 (PCR) Not Detected (Not Detectd) 03/16/24 03/16/24 Range/Units 16:09 19:12 WBC (3.8-10.6) k/uL RBC (3.80-5.40) m/uL Hgb (11.4-16.0) gm/dL Hct (34.0-46.0) % MCV (80.0-100.0) fL MCH (25.0-35.0) pg MCHC (31.0-37.0) g/dL RDW (11.5-15.5) % Plt Count (150-450) k/uL MPV Neutrophils % % Lymphocytes % % Monocytes % % Eosinophils % % Basophils % % Neutrophils # (1.3-7.7) k/uL Lymphocytes # (1.0-4.8) k/uL Monocytes # (0-1.0) k/uL Eosinophils # (0-0.7) k/uL Basophils # (0-0.2) k/uL Manual Slide Review Poikilocytosis (manual Anisocytosis Macrocytosis Target Cells Stomatocytes Cruz-Humphreys Bodies PT (10.0-12.5) sec INR (<1.2) APTT (22.0-30.0) sec D-Dimer 6.30 H (<0.60) mg/L FEU Sodium (137-145) mmol/L Potassium (3.5-5.1) mmol/L Chloride (98-107) mmol/L Carbon Dioxide (22-30) mmol/L Anion Gap mmol/L BUN (7-17) mg/dL Creatinine (0.52-1.04) mg/dL Est GFR (CKD-EPI)AfAm (>60 ml/min/1.73 sqM) Est GFR (CKD-EPI)NonAf (>60 ml/min/1.73 sqM) Glucose (74-99) mg/dL Plasma Lactic Acid James (0.7-2.0) mmol/L Calcium (8.4-10.2) mg/dL Magnesium (1.6-2.3) mg/dL Total Bilirubin (0.2-1.3) mg/dL AST (14-36) U/L ALT (4-34) U/L Alkaline Phosphatase (38-126) U/L Troponin I (0.000-0.034) ng/mL NT-Pro-B Natriuret Pep 54795 pg/mL Total Protein (6.3-8.2) g/dL Albumin (3.5-5.0) g/dL Influenza Type A (PCR) (Not Detectd) Influenza Type B (PCR) (Not Detectd) RSV (PCR) (Not Detectd) SARS-CoV-2 (PCR) (Not Detectd) - EKG Data EKG Comments: EKG taken at 15: [address] depression 1 mm anterior lateral leads. No T wave abnormalities. Ventricular rate 116, WI interval 171, QRS duration 92, QT/QTc 341/410. (Natalie Mcmullen) Disposition Time of Disposition: 19:34 <Natalie Mcmullen - Last Filed: 03/16/24 22:05> <Jazmín Cevallos - Last Filed: 03/17/24 03:23> Clinical Impression: Saddle pulmonary embolus Disposition: ADMITTED IP TO THIS HOSP Condition: Stable
[2024-03-16 16:36] LABS: ALT 17 U/L (4-34); AST 35 U/L (14-36); African American GFR (CKD) 70 (>60 ml/min/1.73 sqM); Albumin 3.1 g/dL (3.5-5.0); Alkaline Phosphatase 152 U/L (38-126); Anion Gap 6 mmol/L; Blood Urea Nitrogen 17 mg/dL (7-17); Calcium 8.7 mg/dL (8.4-10.2); Carbon Dioxide 27 mmol/L (22-30); Chloride 99 mmol/L (98-107); Glucose 109 mg/dL (74-99); Magnesium 1.7 mg/dL (1.6-2.3); Non-African American GFR(CKD) 61 (>60 ml/min/1.73 sqM); Potassium 3.3 mmol/L (3.5-5.1); Sodium 132 mmol/L (137-145); Total Bilirubin 1.1 mg/dL (0.2-1.3); Total Protein 5.8 g/dL (6.3-8.2)
--- NOTE | 2024-03-16 16:40 | XR ---
EXAMINATION TYPE: XR chest 2V DATE OF EXAM: 03/16/2024 COMPARISON: NONE HISTORY: Weakness TECHNIQUE: Frontal and lateral views of the chest are obtained. FINDINGS: There is no focal air space opacity, pleural effusion, or pneumothorax seen. The cardiac silhouette size is within normal limits. Open reduction internal fixation of a right humeral fracture . IMPRESSION: No acute cardiopulmonary process. [facility], Workstation: ANGIE 03/16/2024 4:38 PM
[2024-03-16 16:46] LABS: INR 1.1 (<1.2); Partial Thromboplastin Time 24.2 sec (22.0-30.0); Prothrombin Time 11.5 sec (10.0-12.5)
[2024-03-16 16:51] LABS: Anisocytosis Slight; Basophils % (A) 0 %; Eosinophils % (A) 0 %; HCT 44.7 % (34.0-46.0); HGB 14.6 gm/dL (11.4-16.0); Lymphocytes % (A) 12 %; MCH 34.2 pg (25.0-35.0); MCHC 32.6 g/dL (31.0-37.0); MCV 105.2 fL (80.0-100.0); Macrocytosis Marked; Mean Platelet Volume 9.7; Monocytes # (A) 0.5 k/uL (0-1.0); Monocytes % (A) 6 %; Neutrophils # (A) 7.2 k/uL (1.3-7.7); Neutrophils % (A) 81 %; Platelet Count 286 k/uL (150-450); RBC 4.25 m/uL (3.80-5.40); RDW 18.8 % (11.5-15.5); WBC 8.9 k/uL (3.8-10.6)
[2024-03-16 17:09] LABS: Howell-Jolly Bodies Present
[2024-03-16 17:10] LABS: Stomatocytes Present; Target Cells Present
[2024-03-16 17:11] LABS: Poikilocytosis (M) Present
[2024-03-16] MEDS: SODIUM CHLORIDE 0.9% 1,000 ML IV STA (17:17)
[2024-03-16] MEDS ORDERED: HEPARIN SODIUM 1,000 UN/ML (10ML VL) IV PRN (18:34)
[2024-03-16] MEDS: HEPARIN SOD,PORK IN 0.45% NACL 25,000 UNIT in 0.45% NACL 1 250ML.BAG IV SCH (18:52)
[2024-03-16] MEDS: HEPARIN SODIUM 1,000 UN/ML (10ML VL) IV ONE (18:52)
--- NOTE | 2024-03-16 19:15 | CT ---
EXAMINATION TYPE: CT chest angio for PE DATE OF EXAM: 03/16/2024 COMPARISON: Radiograph same day HISTORY: 73-year-old female fatigue, shortness of breath, elevated d-dimer TECHNIQUE: Contiguous axial scanning of the chest performed with IV Contrast, patient injected with 8 0 mL of Isovue 370. Coronal and sagittal MIP performed. CT DLP: 250 mGycm Automated exposure control for dose reduction was used. FINDINGS: The heart is upper limits of normal in size. There is flattening of the interventricular septum and p rominent refluxing contrast into the IVC and hepatic veins. Three-vessel coronary artery calcificatio ns are present. Aorta normal caliber with conventional branching anatomy. Large caliber main right and left pulmonary arteries measuring up to 2.9 cm. There is saddle embolus and moderate to severe clot at the left hilum and moderate at the right hilum extending into lobar, s egmental and subsegmental branches, inferiorly throughout the lungs. Reticular and patchy interstitial fibrosis and scarring at the lung bases. No pleural effusion. Small to moderate size hiatal hernia with postsurgical change of a gastrectomy. Visualized upper abdomen shows 2.5 cm cyst along the falciform ligament and cholecystectomy clips. Bones: Extensive anterior spondylosis from the midthoracic spine down through the visualized lumbar s pine. IMPRESSION: 1. BILATERAL PULMONARY EMBOLI ALONG WITH A SADDLE EMBOLUS. MODERATE TO SEVERE SCATTERED BURDEN. RIGHT HEART STRAIN. 2. Some interstitial fibrosis at the lung bases. Pulmonary arterial hypertension. Coronary artery fabby cifications. Critical findings called to Dr. Cevallos in the ER at 7:12 PM. [facility], , 03/16/2024 7:12 PM
[2024-03-16] MEDS ORDERED: NALOXONE 0.4 MG/ML 1 ML VIAL IV PRN (19:21)
--- NOTE | 2024-03-16 20:18 | US ---
EXAMINATION TYPE: US venous doppler duplex LE DATE OF EXAM: 03/16/2024 7:45 PM COMPARISON: NONE CLINICAL INDICATION: Female, 73 years old with history of PE; PE. Patient states no swelling, pain, w armth, or redness to the legs. No hx DVT. not on thinners TECHNIQUE: The lower extremity deep venous system is examined utilizing real time linear array sonog gaye with graded compression, color doppler sonography, and spectral doppler. SIDE PERFORMED: Bilateral FINDINGS: VESSELS IMAGED: Common Femoral Vein Deep Femoral Vein Greater Saphenous Vein * Femoral Vein Popliteal Vein Small Saphenous Vein * Proximal Calf Veins (* superficial vessels) Right Leg: Echoes seen within the deep femoral vein, popliteal vein, and prox calf veins Left Leg: Partial compression of distal femoral vein, however color flow seen. ?chronic dvt vs kailey l IMPRESSION: 1. Correlate for right lower extremity acute DVT involving the deep femoral vein, popliteal vein, and upper calf veins. 2. Possibly more subacute or chronic DVT left lower extremity involving the lower femoral vein given partial compressibility. [facility], , 03/16/2024 8:15 PM
[2024-03-16] MEDS: ACETAMINOPHEN TAB 500 MG TAB PO STA (21:49)
--- NOTE | 2024-03-16 22:24 | P.HPIM ---
History of Present Illness H&P Date: 03/16/24 HISTORY OF PRESENT ILLNESS: 73-year-old with active medical history of chronic iron deficiency anemia, hypertension, hyperlipidemia, severe spinal stenosis, degenerative disc disease, obesity post gastric sleeve back in 2009, lumbar spine second5 postrepair surgically back in 2022 which patient still currently having problem with balance and gait and mobility. She called 911 today because of severe symptoms consistent with weakness, imbalance, multiple falls, fatigue, slight shortness of breath she apparently has been seeing her neurosurgeon with surgical intervention had on her back did not work out well she had scheduled the MRI will be done this Saturday at [facility] down in [place]. She also has been complaining slight worsening shortness of breath without cough or wheezes patient had no history of heart disease does not use any oxygen in the past she has been having palpitation mild chest tightness and pressure with significant nausea and GI symptoms. Ended up seen in the emergency department her initial presentation with pulse rate running slightly better. Between 100 and 140 pulse ox slightly bit low require 4 L to keep her pulse ox above 90 percentile with blood pressure under control. Laboratory value at the time with normal WBC hemoglobin hematocrit, sodium and potassium are little bit low troponin was mildly elevated at 0.174 with quite elevated proBNP at 18,400 D- dimer was quite bit elevated 6.30 with negative influenza COVID and RSV. Chest x-ray shows no pulmonary process was found with the D-dimer being elevated in the going for CTA shows bilateral pulmonary embolism along with a saddle embolism moderate to severe scatter burden right heart strain some interstitial fibrosis at the lung base with pulmonary arterial hypertension and coronary artery calcification. Venous Doppler came back with right lower extremity acute DVT involving the deep femoral vein popliteal vein and upper calf vein, possible more subacute on chronic left lower extremity involving the lower femoral vein along with partial compressibility. EKG showed sinus tachycardia with ST deviated with slight abnormality in the anterolateral leads. 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 REVIEW OF SYSTEMS: CONSTITUTIONAL: Well-developed no acute respiratory distress. EYES: No icterus sclerae, no conjunctivitis. EARS, NOSE, MOUTH, THROAT, and FACE: No sore throat, lymphadenopathy, carotid bruits or deformity. RESPIRATORY: Positive shortness of breath cough or wheezes. CARDIOVASCULAR: Positive PND orthopnea palpitation no angina. GASTROINTESTINAL: No Abd pain, Nausea or vomiting, no Diarrhea or constipation, No GI Bleed, no distention or masses. GENITOURINARY: Negative for Hematuria or UTI, no kidney stones. INTEGUMENT/BREAST: Negative for any muscular injury with mild osteoarthritis.. HEMATOLOGIC/LYMPHATIC: Negative for bleed or purpura. MUSCULOSKELTAL: Generalized arthralgia and myalgia. NEURLOGICAL: No LOC, Sz or syncope, blurred vision dizziness or abnormality.. Significant lower extremity weakness. BEHAVIORAL/PSYCH: Negative. ENDOCRINE: Negative. PHYSICAL EXAMINATION: General Appearance: Alert, cooperative, no distress, appears stated age. Neck HEENT: Supple, no lymphadenopathy, no thyroid enlargement, no carotid bruits. Lungs: Decreased breath sound bilaterally with fine rhonchi positive mild expiratory wheezes with slight crackles in the base. Chest Wall: Decreased expansion with deep inspiration no tenderness and no deformity was found on exam, no costochondral pain or discomfort. Heart: Regular rate and rhythm, S1, S2 positive tachycardia, normal, no murmur, rub or gallop. Back: Symmetric, no curvature, ROM normal, no CVA tenderness. Abdomen: Soft, non-tender, bowel sounds active all four quadrants, no masses, no organomegaly. Extremities: Slight edema bilaterally with decreased pulse dorsalis pedis Pulses: 2+ and symmetric. Skin: Skin color, texture, tugor normal, no rashes or lesions. Neurologic: Alert oriented x3 cranial nerves II through XII intact, positive generalized weakness with abnormal balance and gait. ASSESSMENT AND PLAN: _Significant hypoxia and mild respiratory failure: Most likely secondary to gisell ateral pulmonary embolism along with NSTEMI and DVT with pulmonary hypertension, patient will require to be on oxygen probably to his pulse ox above 90-92 percentile. _Bilateral pulmonary embolism she was Started on heparin drip per PE and DVT protocol, will consult pulmonary also consult cardiology if there is any strain on the heart which looks like it patient might require to go for an intervention for possible attempt to do thrombectomy versus tPA. _Bilateral DVT of the lower extremity with acute on the right subacute on the left: Patient be on anticoagulation as a result the same so continue heparin drip with potential moving into Eliquis 10 mg twice a day for 2 weeks then 5 mg twice a day thereafter for possible 1 year with extension for lifetime if there is proven to be with history of coagulopathy. 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 echocardiogram will be done and possible intervention if needed. _Severe dizziness with abnormal balance and gait: Remain secondary to vertigo recently was treated with continue not to do well with balance and gait. _Hypertension: Remain on Dyazide which seem to control blood pressure well lately. _Electrolyte imbalance with mild hyponatremia: Continue fluid restriction watch sodium on daily basis. _Severe pulmonary hypertension: Again patient will be on diuretics along with calcium channel milad and possibly nitrate eventually need to go back to see 1 of pulmonary hypertension clinician. _Post gastric sleeve in the past with over 100 pounds weight loss has done better with the slight complication related to aggressive weight loss. _Mild overflow incontinence: Remain on Myrbetriq 25 mg a day which seems to do better with current medication. _Severe GERD/GI prophylaxis: Patient will be on pantoprazole. DVT prophylaxis: Continue heparin drip for now. CODE STATUS: Full code. Admit patient to the inpatient service for more than 2 night stay. Past Medical History Past Medical History: GERD/Reflux, Hypertension Additional Past Medical History / Comment(s): stomach ulcers x2 in 2015, current anemia History of Any Multi-Drug Resistant Organisms: None Reported Past Surgical History: Back Surgery, Bariatric Surgery, Cholecystectomy, Orthopedic Surgery, Tonsillectomy Additional Past Surgical History / Comment(s): gastric sleeve in 2009, EGD, ORIF right arm. L2-L5 repair 2022. Past Anesthesia/Blood Transfusion Reactions: No Reported Reaction Past Psychological History: No Psychological Hx Reported Smoking Status: Never smoker Past Alcohol Use History: Occasional Past Drug Use History: None Reported - Past Family History Mother Family Medical History: Cancer Additional Family Medical History / Comment(s): breast Medications and Allergies Home Medications Medication Instructions Recorded Confirmed Type Mirabegron [Myrbetriq] 25 mg PO DAILY 03/16/24 03/16/24 History Pantoprazole [Protonix] 40 mg PO DAILY 03/16/24 03/16/24 History hydroCHLOROthiazide 12.5 mg PO DAILY 03/16/24 03/16/24 History Allergies Allergy/AdvReac Type Severity Reaction Status Date / Time No Known Allergies Allergy Verified 03/16/24 16:07 Physical Exam Vitals: Vital Signs Temp Pulse Resp BP Pulse Ox 03/16/24 21:55 109 H 20 131/93 100 03/16/24 19:48 97 18 111/88 99 03/16/24 19:00 115 H 24 115/95 96 03/16/24 18:30 112 H 19 128/110 96 03/16/24 18:00 111 H 22 127/91 94 L 03/16/24 17:30 113 H 17 111/101 94 L 03/16/24 17:00 111 H 19 134/87 94 L 03/16/24 16:00 116 H 22 119/92 79 L 03/16/24 15:19 97.9 F 120 H 20 121/93 94 L Intake and Output 03/16/24 03/16/24 03/16/24 06:59 14:59 22:59 Other: Weight 60.781 kg Results CBC & Chem 7: 03/16/24 16:09 03/16/24 16:09 Labs: Abnormal Lab Results - Last 24 Hours (Table) 03/16/24 03/16/24 03/16/24 Range/Units 16:09 16:09 16:09 MCV 105.2 H (80.0-100.0) fL RDW 18.8 H (11.5-15.5) % Macrocytosis Marked A D-Dimer (<0.60) mg/L FEU Sodium 132 L (137-145) mmol/L Potassium 3.3 L (3.5-5.1) mmol/L Glucose 109 H (74-99) mg/dL Alkaline Phosphatase 152 H (38-126) U/L Troponin I 0.147 H* (0.000-0.034) ng/mL Total Protein 5.8 L (6.3-8.2) g/dL Albumin 3.1 L (3.5-5.0) g/dL 03/16/24 03/16/24 Range/Units 16:09 20:19 MCV (80.0-100.0) fL RDW (11.5-15.5) % Macrocytosis D-Dimer 6.30 H (<0.60) mg/L FEU Sodium (137-145) mmol/L Potassium (3.5-5.1) mmol/L Glucose (74-99) mg/dL Alkaline Phosphatase (38-126) U/L Troponin I 0.190 H* (0.000-0.034) ng/mL Total Protein (6.3-8.2) g/dL Albumin (3.5-5.0) g/dL
[2024-03-17] MEDS: POTASSIUM CHLORIDE 10 MEQ in WATER FOR INJECTION 1 100ML.BAG IVPB STA (03:01)
--- NOTE | 2024-03-17 03:05 | P.CNPUL ---
History of Present Illness Consult date: 03/17/24 Requesting physician: Natalie Mcmullen Reason for consult: other (Submassive pulmonary embolism) Chief complaint: Exertional dyspnea, weakness History of present illness: Patient is a 73-year-old female with past medical history significant for peptic ulcer disease, hypertension. Of note, patient is currently having problems with balance and gait. She ambulates with a cane. She is being evaluated by a neurosurgeon for possible surgical intervention. She does have history of lumbar surgery done at [facility] in March,. More recently, patient is having severe exertional dyspnea and fatigue. Denies any chest pain. Denies any cough. Denies any fevers. No lightheadedness or syncopal events. She has chest tightness for 1 week. Presented the emergency department yester day afternoon. D-dimer was elevated at 6.3. Chest CT angio protocol performed. She was found to have bilateral pulmonary emboli along with a saddle pulmonary embolus. Moderate to severe scattered burden. CT evidence of right-sided heart strain. Also, mild interstitial fibrosis at the bases. 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 I am evaluating this patient in the emergency department. She is currently on 2 L nasal cannula. SpO2 97%. Nontachypneic. Blood pressure is normotensive. Heart rate is 98 bpm. She is not on any vasopressors at the moment. She appears comfortable and not in any distress. On further questioning, she did have a long car ride to [place] last week. She did not make many stops along the way. She has no personal or familial history of DVT/PE. No recent traumatic events or surgical procedures. No recent hospitalizations. CBC: WBC count 8.9, hemoglobin 14.6, hematocrit 44.7, platelets 286. CMP: Sodium 132, potassium 3.3, chloride 99, serum bicarb 27, BUN 17, creatinine 0.94, glucose 109. Troponin 0.147 and 0.19 respectively. NT proBNP elevated at 18,400. EKG done on arrival: Sinus tachycardia, rate 116 bpm, diffuse ST/T wave abnormalities. High intensity heparin infusion continues per protocol. A transthoracic echocardiogram is pending. Cardiovascular surgeon is aware of the case, and patient is potential candidate for EKOS procedure or mechanical thrombectomy. She will be admitted to the intensive care unit once bed available. Review of Systems Constitutional: Reports weakness, Denies chills, Denies fever, Denies weight gain, Denies weight loss Ears, nose, mouth and throat: Denies epistaxis, Denies nasal congestion, Denies nasal discharge, Denies post-nasal drip, Denies sinus pain, Denies sinus pressure, Denies sore throat Cardiovascular: Reports dyspnea on exertion, Denies chest pain, Denies leg e kev, Denies lightheadedness, Denies orthopnea, Denies palpitations, Denies paroxysmal nocturnal dyspnea, Denies syncope Respiratory: Denies cough, Denies cough with sputum, Denies hemoptysis, Denies home oxygen, Denies pain on inspiration, Denies respiratory infections, Denies wheezing Gastrointestinal: Denies abdominal pain, Denies change in bowel habits, Denies constipation, Denies diarrhea, Denies nausea, Denies vomiting Genitourinary: Reports incomplete emptying, Reports urinary frequency, Denies dysuria Musculoskeletal: Reports leg numbness/tingling, Reports limitation of motion Integumentary: Reports sores Neurological: Reports balance difficulties, Reports gait dysfunction, Reports numbness, Reports paresthesias, Reports weakness, Denies head injury, Denies headaches Psychiatric: Denies anxiety, Denies depression Past Medical History Past Medical History: GERD/Reflux, Hypertension Additional Past Medical History / Comment(s): stomach ulcers x2 in 2015, current anemia History of Any Multi-Drug Resistant Organisms: None Reported Past Surgical History: Back Surgery, Bariatric Surgery, Cholecystectomy, Orthopedic Surgery, Tonsillectomy Additional Past Surgical History / Comment(s): gastric sleeve in 2009, EGD, ORIF right arm. L2-L5 repair 2022. Past Anesthesia/Blood Transfusion Reactions: No Reported Reaction Past Psychological History: No Psychological Hx Reported Smoking Status: Never smoker Past Alcohol Use History: Occasional Past Drug Use History: None Reported - Past Family History Mother Family Medical History: Cancer Additional Family Medical History / Comment(s): breast Medications and Allergies Home Medications Medication Instructions Recorded Confirmed Type Mirabegron [Myrbetriq] 25 mg PO DAILY 03/16/24 03/16/24 History Pantoprazole [Protonix] 40 mg PO DAILY 03/16/24 03/16/24 History hydroCHLOROthiazide 12.5 mg PO DAILY 03/16/24 03/16/24 History Allergies Allergy/AdvReac Type Severity Reaction Status Date / Time No Known Allergies Allergy Verified 03/16/24 16:07 Physical Exam Vitals: Vital Signs Temp Pulse Resp BP Pulse Ox 03/16/24 23:00 93 16 117/91 97 03/16/24 21:55 109 H 20 131/93 100 03/16/24 19:48 97 18 111/88 99 03/16/24 19:00 115 H 24 115/95 96 03/16/24 18:30 112 H 19 128/110 96 03/16/24 18:00 111 H 22 127/91 94 L 03/16/24 17:30 113 H 17 111/101 94 L 03/16/24 17:00 111 H 19 134/87 94 L 03/16/24 16:00 116 H 22 119/92 79 L 03/16/24 15:19 97.9 F 120 H 20 121/93 94 L Intake and Output 03/16/24 03/16/24 03/17/24 14:59 22:59 06:59 Other: Weight 60.781 kg GENERAL EXAM: Alert, 73-year-old white female, on 2 L/min nasal cannula, not in any respiratory distress. Nontachycardic, normotensive. HEAD: Normocephalic and atraumatic EYES: Normal reaction of pupils, equal size. NOSE: Clear with pink turbinates. THROAT: No erythema or exudates. NECK: No masses, no JVD. CHEST: No chest wall deformity. LUNGS: Equal air entry with no crackles, wheeze, rhonchi or dullness. On 2 L/min nasal cannula. No conversational dyspnea or accessory muscle use while at rest CVS: S1 and S2 normal with no audible murmur, regular rhythm. No extra heart sounds ABDOMEN: No hepatosplenomegaly, active bowel sounds, no guarding or rigidity. SPINE: No scoliosis or deformity SKIN: No rashes CENTRAL NERVOUS SYSTEM: No focal deficits, tone is normal in all 4 extremities. EXTREMITIES: There is no peripheral edema, clubbing, or cyanosis. Peripheral pulses are intact. Results - Laboratory Findings CBC and BMP: 03/16/24 16:09 03/16/24 16:09 PT/INR, D-dimer PT 11.5 sec (10.0-12.5) 03/16/24 16:09 INR 1.1 (<1.2) 03/16/24 16:09 D-Dimer 6.30 mg/L FEU (<0.60) H 03/16/24 16:09 Abnormal lab findings: Abnormal Labs 03/16/24 03/16/24 03/16/24 16:09 16:09 16:09 MCV 105.2 H RDW 18.8 H Macrocytosis Marked A D-Dimer Sodium 132 L Potassium 3.3 L Glucose 109 H Alkaline Phosphatase 152 H Troponin I 0.147 H* Total Protein 5.8 L Albumin 3.1 L 03/16/24 03/16/24 16:09 20:19 MCV RDW Macrocytosis D-Dimer 6.30 H Sodium Potassium Glucose Alkaline Phosphatase Troponin I 0.190 H* Total Protein Albumin - Diagnostic Findings Chest x-ray: image reviewed CT scan - chest: image reviewed Assessment and Plan Assessment: Acute submassive bilateral pulmonary emboli, with CT evidence of right-sided heart strain. Currently on high intensity heparin protocol. Potential candidate for EKOS versus mechanical thrombectomy Acute hypoxemic respiratory failure, secondary to above, currently on 2 L/min nasal cannula Recent prolonged immobilization, i.e., prolonged car ride Hypokalemia History of hypertension History of GERD History of gastric ulcer and gastritis History of lumbar surgery, done at outside facility March, Plan: Patient's medications, labs, imaging reviewed Continue supplemental oxygen maintain oxygen saturation of 92% or greater Hemodynamics are relatively stable at this time. Not requiring any vasopressors Continues on high intensity heparin protocol CT evidence of right-sided heart strain. Follow-up transthoracic echocardiogram pending. Cardiovascular surgeon evaluating patient for possible EKOS versus mechanical thrombectomy in the morning Patient will require monitoring in the intensive care unit, and is awaiting a bed once available. Monitor and replace electrolytes per protocol DVT prophylaxis: Deferred on heparin drip GI prophylaxis: Protonix We will continue to follow. I have personally seen and examined the patient, performed the documentation and the assessment and plan as written. Number of minutes spent on the visit:20 Time with Patient: Greater than 30
[2024-03-17 03:16] LABS: Appearance,Urine Cloudy (Clear); Bacteria,Urine Rare /hpf; Bilirubin,Urine Negative (Negative); Blood,Urine Negative (Negative); Budding Yeast,Urine Rare /hpf; Color,Urine Yellow; Glucose,Urine (UA) Negative (Negative); Hyaline Casts,Urine 1 /lpf (0-2); Ketones,Urine Negative (Negative); Leukocyte Esterase,Urine Moderate (Negative); Mucus,Urine Rare /hpf; Nitrite,Urine Negative (Negative); PH, Urine 5.5 (5.0-8.0); Protein,Urine Negative (Negative); RBC,Urine 2 /hpf (0-5); Squamous Epithelial Cell,Urine 5 /hpf (0-4); Urobilinogen,Urine <2.0 mg/dL (<2.0); WBC,Urine 22 /hpf (0-5)
[2024-03-17] MEDS: POTASSIUM CHLORIDE ER 20 MEQ TAB.ER PO STA (03:51)
[2024-03-17] MEDS: POTASSIUM CHLORIDE 10 MEQ in WATER FOR INJECTION 1 100ML.BAG IVPB ONE (03:52)
[2024-03-17 07:39] LABS: Glucose,Whole Blood 58 mg/dL (70-110)
[2024-03-17 08:06] LABS: Glucose,Whole Blood 263 mg/dL (70-110)
--- NOTE | 2024-03-17 09:19 | P.CRDCN ---
History of Present Illness Consult date: 03/17/24 Reason for Consult (text): Right heart strain History of present illness: The patient is a 73-year-old female with no past cardiac history, presented to the hospital with worsening shortness of breath as well as intermittent chest pains, that started approximately 1 week prior. Patient was found to have bilateral submassive pulmonary emboli with evidence of right heart strain on CT scan. The patient recently had a long car ride from [place] and symptoms started thereafter. DIAGNOSTICS: EKG shows sinus mechanism CTA of the chest shows submassive bilateral pulmonary emboli Lower extremity venous study shows subacute to chronic bilateral lower extremity DVT Chest x-ray shows no acute cardiopulmonary process Lab data, WBC 8.9, hemoglobin 14.6, hematocrit 44.7, platelet 286, D-dimer 6.30, sodium 132, potassium 3.3, BUN 17, creatinine 0.94, magnesium 1.7, AST 35, ALT 17, troponin 0.19, BNP 18,400 REVIEW OF SYSTEMS: No fever or chills. No cough or expectoration. No diaphoresis. Patient denies headache, dizziness, blurred vision, double vision. Patient denies any stomach discomfort. No nausea, vomiting. No hematochezia. No hematemesis. Denies any black stools or blood in his stools. Denies dysuria or hematuria. No muscle weakness or numbness. No current chest discomfort. No shortness of breath at rest. PHYSICAL EXAMINATION: This is a 73-year-old female in no apparent distress at the time of my examination. HEENT: Head is atraumatic, normocephalic. Pupils are equal, round. Mucous membranes of the mouth are moist. Neck is supple. There is no jugular venous distention. No carotid bruit is heard. CHEST EXAMINATION: Lungs are clear to auscultation. No chest wall tenderness is noted on palpation or with deep breathing. HEART EXAMINATION: Heart regular rate and rhythm. S1, S2 heard. No murmurs, gallops or rub. ABDOMEN: Soft, nontender. Bowel sounds are heard. No organomegaly noted. EXTREMITIES: 2+ peripheral pulses with no evidence of peripheral edema and no calf tenderness noted. NEUROLOGIC EXAMINATION: Patient is awake, alert and oriented x3. FINAL ASSESSMENT AND PLAN: Submassive bilateral pulmonary emboli Bilateral lower extremity DVT Elevated troponin, secondary to right heart strain PLAN: Continue anticoagulation Proceed with EKOS procedure later today with Dr. Patricia Further recommendations to be based upon clinical course I am dictating on behalf of Dr Robert Aviles's history/physical and assess ment/plan. Past Medical History Past Medical History: GERD/Reflux, Hypertension Additional Past Medical History / Comment(s): stomach ulcers x2 in 2016, current anemia History of Any Multi-Drug Resistant Organisms: None Reported Past Surgical History: Back Surgery, Bariatric Surgery, Cholecystectomy, Orthopedic Surgery, Tonsillectomy Additional Past Surgical History / Comment(s): gastric sleeve in 2009, EGD, ORIF right arm. L2-L5 repair 2022. Past Anesthesia/Blood Transfusion Reactions: No Reported Reaction Past Psychological History: No Psychological Hx Reported Smoking Status: Never smoker Past Alcohol Use History: Occasional Past Drug Use History: None Reported - Past Family History Mother Family Medical History: Cancer Additional Family Medical History / Comment(s): breast Medications and Allergies Home Medications Medication Instructions Recorded Confirmed Type Mirabegron [Myrbetriq] 25 mg PO DAILY 03/16/24 03/16/24 History Pantoprazole [Protonix] 40 mg PO DAILY 03/16/24 03/16/24 History hydroCHLOROthiazide 12.5 mg PO DAILY 03/16/24 03/16/24 History Allergies Allergy/AdvReac Type Severity Reaction Status Date / Time No Known Allergies Allergy Verified 03/16/24 16:07 Physical Exam Vitals: Vital Signs Temp Pulse Resp BP Pulse Ox 03/17/24 08:00 98.2 F 90 18 124/93 98 03/17/24 07:30 91 20 117/96 98 03/17/24 05:00 82 16 137/99 98 03/17/24 04:00 99 18 150/108 97 03/17/24 03:00 86 15 143/83 99 03/17/24 02:00 89 16 116/79 97 03/17/24 01:00 88 17 105/75 95 03/17/24 00:00 90 15 108/67 99 03/16/24 23:00 93 16 117/91 97 03/16/24 21:55 109 H 20 131/93 100 03/16/24 19:48 97 18 111/88 99 03/16/24 19:00 115 H 24 115/95 96 03/16/24 18:30 112 H 19 128/110 96 03/16/24 18:00 111 H 22 127/91 94 L 03/16/24 17:30 113 H 17 111/101 94 L 03/16/24 17:00 111 H 19 134/87 94 L 03/16/24 16:00 116 H 22 119/92 79 L 03/16/24 15:19 97.9 F 120 H 20 121/93 94 L Intake and Output 03/16/24 03/17/24 03/17/24 22:59 06:59 14:59 Intake Total 73.305 Output Total 0 Balance 73.305 0 Intake: Intake, IV Titration 73.305 Amount Heparin Sod,Pork in 0.45% 73.305 NaCl 25,000 unit In 0.45 % NaCl 1 250ml.bag @ 18 UNITS/KG/HR 10.941 mls/hr IV .[id number] [facility] Rx#: [id number] Output: Urine 0 Other: Weight 60.781 kg 60.781 kg Results 03/16/24 16:09 03/16/24 16:09 Cardiac Enzymes 03/16/24 03/16/24 03/16/24 Range/Units 16:09 16:09 20:19 AST 35 (14-36) U/L Troponin I 0.147 H* 0.190 H* (0.000-0.034) ng/mL Coagulation 03/16/24 03/17/24 Range/Units 16:09 00:18 PT 11.5 (10.0-12.5) sec APTT 24.2 >200.0 H* (22.0-30.0) sec CBC 03/16/24 Range/Units 16:09 WBC 8.9 (3.8-10.6) k/uL RBC 4.25 (3.80-5.40) m/uL Hgb 14.6 (11.4-16.0) gm/dL Hct 44.7 (34.0-46.0) % Plt Count 286 (150-450) k/uL Comprehensive Metabolic Panel 03/16/24 Range/Units 16:09 Sodium 132 L (137-145) mmol/L Potassium 3.3 L (3.5-5.1) mmol/L Chloride 99 (98-107) mmol/L Carbon Dioxide 27 (22-30) mmol/L BUN 17 (7-17) mg/dL Creatinine 0.94 (0.52-1.04) mg/dL Glucose 109 H (74-99) mg/dL Calcium 8.7 (8.4-10.2) mg/dL AST 35 (14-36) U/L ALT 17 (4-34) U/L Alkaline Phosphatase 152 H (38-126) U/L Total Protein 5.8 L (6.3-8.2) g/dL Albumin 3.1 L (3.5-5.0) g/dL Current Medications Generic Name Dose Route Start Last Admin Trade Name Freq PRN Reason Stop Dose Admin Heparin Sodium (Porcine) 0 unit 03/16/24 18:34 Heparin Sodium 1,000 Un/Ml (10ml Vl) IV PER PROTOCOL PRN Low PTT Protocol Heparin Sodium/Sodium Chloride 250 mls @ 10.941 mls/hr 03/16/24 18:45 03/17 03:34 25,000 unit/ Sodium Chloride IV 14 units/kg/hr .[id number] RASHAAD 8.509 mls/hr Titration Protocol 18 UNITS/KG/HR Naloxone HCl 0.2 mg 03/16/24 19:21 Naloxone 0.4 Mg/Ml 1 Ml Vial IV Q2M PRN Opioid Reversal Non-Formulary Medication 25 mg 03/17/24 09:00 Mirabegron [Myrbetriq] PO DAILY RASHAAD Pantoprazole Sodium 40 mg 03/17/24 09:00 Pantoprazole 40 Mg Tablet PO DAILY RASHAAD Intake and Output 03/16/24 03/17/24 03/17/24 22:59 06:59 14:59 Intake Total 73.305 Output Total 0 Balance 73.305 0 Intake: Intake, IV Titration 73.305 Amount Heparin Sod,Pork in 0.45% 73.305 NaCl 25,000 unit In 0.45 % NaCl 1 250ml.bag @ 18 UNITS/KG/HR 10.941 mls/hr IV .[id number] [facility] Rx#: [id number] Output: Urine 0 Other: Weight 60.781 kg 60.781 kg Patient Weight 03/18/24 06:59 Weight 60.781 kg 03/16/24 16:09 03/16/24 16:09
[2024-03-17] MEDS: PANTOPRAZOLE 40 MG TABLET PO SCH (10:02)
[2024-03-17] MEDS: NON FORMULARY DRUG (Mirabegron [Myrbetriq] 25 MG Tab.Er.24h) PO SCH (10:02)
[2024-03-17 10:45] LABS: Anisocytosis Slight; Basophils % (A) 1 %; Eosinophils # (A) 0.1 k/uL (0-0.7); Eosinophils % (A) 2 %; HCT 47.6 % (34.0-46.0); Lymphocytes # (A) 1.2 k/uL (1.0-4.8); Lymphocytes % (A) 17 %; MCH 33.6 pg (25.0-35.0); MCHC 31.4 g/dL (31.0-37.0); MCV 106.9 fL (80.0-100.0); Macrocytosis Marked; Mean Platelet Volume 9.9; Monocytes # (A) 0.4 k/uL (0-1.0); Monocytes % (A) 6 %; Neutrophils # (A) 4.8 k/uL (1.3-7.7); Neutrophils % (A) 73 %; Platelet Count 301 k/uL (150-450); RBC 4.46 m/uL (3.80-5.40); RDW 18.8 % (11.5-15.5); WBC 6.6 k/uL (3.8-10.6)
[2024-03-17 11:04] LABS: ALT 18 U/L (4-34); African American GFR (CKD) 68 (>60 ml/min/1.73 sqM); Albumin 3.1 g/dL (3.5-5.0); Anion Gap 6 mmol/L; Blood Urea Nitrogen 14 mg/dL (7-17); Calcium 8.6 mg/dL (8.4-10.2); Carbon Dioxide 26 mmol/L (22-30); Chloride 102 mmol/L (98-107); Glucose 99 mg/dL (74-99); Non-African American GFR(CKD) 59 (>60 ml/min/1.73 sqM); Sodium 134 mmol/L (137-145); Total Protein 6.2 g/dL (6.3-8.2)
[2024-03-17 11:10] LABS: AST 38 U/L (14-36); Alkaline Phosphatase 128 U/L (38-126); Potassium 3.7 mmol/L (3.5-5.1)
[2024-03-17] MEDS: LIDOCAINE 1% INJ 10MG/ML (20 ML MDV) SQ ONE (11:45)
[2024-03-17] MEDS: MIDAZOLAM 2 MG/2 ML VIAL IVP ONE (11:45)
[2024-03-17 11:57] LABS: Glucose,Whole Blood 78 mg/dL (70-110)
[2024-03-17] MEDS: SODIUM CHLORIDE 0.9% 500 ML 500 ML IV ONE (12:39)
[2024-03-17] MEDS: fentaNYL (PF) 50 MCG/1 ML VIAL IVP ONE (12:52)
--- NOTE | 2024-03-17 13:00 | CA ---
Transthoracic Echo Report Name: Gillian Paz Age: 73 Gender: F : 1950 Exam Date: 03/17/2024 10:48 Exam Location: [place] [facility] Ht (in): 62 Wt (lb): 134 Ordering Physician: Kaleb Nicolas MD Attending/Referring Phys: Food Writer Marielena Ceja RDCS Procedure CPT: Indications: lvfunction Cardiac Hx: Technical Quality: Fair Contrast 1: Total Dose (mL): Contrast 2: Total Dose (mL): MEASUREMENTS (Male / Female) Normal Values 2D ECHO LV Diastolic Diameter PLAX 2.6 cm 4.2 - 5.9 / 3.9 - 5.3 cm LV Systolic Diameter PLAX 1.7 cm IVS Diastolic Thickness 1.1 cm 0.6 - 1.0 / 0.6 - 0.9 cm LVPW Diastolic Thickness 0.9 cm 0.6 - 1.0 / 0.6 - 0.9 cm LV Relative Wall Thickness 0.8 RV Internal Dim ED PLAX 3.8 cm LA Volume 23.4 cm??? 18 - 58 / 22 - 52 cm??? LA Volume Index 14.3 cm???/m??? 16 - 28 cm???/m??? M-MODE Aortic Root Diameter MM 3.1 cm LA Systolic Diameter MM 4.9 cm LA Ao Ratio MM 1.6 DOPPLER AV Peak Velocity 101.7 cm/s AV Peak Gradient 4.1 mmHg AV Mean Velocity 67.6 cm/s AV Mean Gradient 2.3 mmHg AV Velocity Time Integral 17.0 cm LVOT Peak Velocity 69.1 cm/s LVOT Peak Gradient 1.9 mmHg LVOT Velocity Time Integral 13.2 cm MV Area PHT 4.0 cm??? Mitral E Point Velocity 47.2 cm/s Mitral A Point Velocity 102.3 cm/s Mitral E to A Ratio 0.5 MV Deceleration Time 191.0 ms MV E' Velocity 3.7 cm/s Mitral E to MV E' Ratio 12.6 TR Peak Velocity 272.0 cm/s TR Peak Gradient 29.6 mmHg Right Ventricular Systolic Press 34.6 mmHg FINDINGS Left Ventricle Mildly increased left ventricular wall thickness. Left ventricular cavity size normal. No obvious regional wall motion abnormalities. Left ventricular ejection fraction is estimated at 55 %. Grade 1 diastolic dysfunction. Right Ventricle Right ventricular dilatation. Akinetic right ventricular free wall. Mild pulmonary hypertension. RV strain noted, TAPSE 13 mm, S' 5 cm/sec. Right Atrium Right atrial dilatation. Left Atrium Normal left atrial size. Mitral Valve Structurally normal mitral valve. Mitral valve thickened. Moderate mitral annular calcification. Mild mitral regurgitation. Aortic Valve Trileaflet aortic valve. No aortic stenosis. No aortic regurgitation. Aortic valve sclerosis. Tricuspid Valve Structurally normal tricuspid valve. Mild tricuspid regurgitation. Pulmonic Valve Structurally normal pulmonic valve. Trace pulmonic regurgitation. Pericardium No pericardial effusion. Echo free space anterior to the right ventricle likely represents a fat pad. Aorta Normal size aortic root and proximal ascending aorta. CONCLUSIONS Normal LV size and systolic function. Significant enlargement of right ventricle noted with akinesia. Probable acute RV strain although PA pressures are low this could be because of right ventricular dysfunction. Right atrium is dilated. There is mitral annular calcification and aortic sclerosis without stenosis. There is mild mitral and tricuspid insufficiency noted. No pericardial effusion probable fat pad Previewed by: Dr. Derrell Anderson MD (Electronically Signed) Final Date: 17 March 2024 12:59
[2024-03-17] MEDS: FLUMAZENIL 0.1 MG/ML 5 ML VIAL IVP ONE (13:12)
[2024-03-17] MEDS: PHENYLEPHRINE-0.9% NACL SYG 1,000 MCG/10 ML SYRINGE IVP ONE (13:12)
[2024-03-17] MEDS: HEPARIN SODIUM 1,000 UN/ML (10ML VL) IVP ONE (13:20)
[2024-03-17] MEDS: IOPAMIDOL-370 100ML BTL INJ ONE (13:42)
[2024-03-17] MEDS ORDERED: ZOLPIDEM 5 MG TAB PO PRN (13:50)
[2024-03-17] MEDS ORDERED: ATROPINE SULFATE 0.1 MG/ML 10ML SYRINGE IV PRN (13:50)
[2024-03-17] MEDS ORDERED: RX INFO: IV CONTRAST WAS GIVEN 1 EACH MISC MISCELLANE PRN (13:50)
[2024-03-17] MEDS ORDERED: NITROGLYCERIN SL TABS 0.4 MG TAB SUBLINGUAL PRN (13:50)
[2024-03-17] MEDS ORDERED: MAG HYDROX/AL HYDROX/SIMETH 30 ML CUP PO PRN (13:50)
[2024-03-17] MEDS: SODIUM CHLORIDE 0.9% 1,000 ML IV ONE (13:58)
[2024-03-17] MEDS: SODIUM CHLORIDE 0.9% 1,000 ML in EMPTY BAG 1 BAG IV SCH (15:27)
[2024-03-17 16:38] LABS: Glucose,Whole Blood 63 mg/dL (70-110)
[2024-03-17 16:54] LABS: Glucose,Whole Blood 74 mg/dL (70-110)
[2024-03-17] MEDS: DEXTROSE 5%-0.9% NACL 1,000 ML IV SCH (17:42)
[2024-03-17 17:43] LABS: Glucose,Whole Blood 119 mg/dL (70-110)
[2024-03-17] MEDS ORDERED: ASPIRIN 81 MG PO SCH (19:30)
[2024-03-17 20:04] LABS: Glucose,Whole Blood 122 mg/dL (70-110)
--- NOTE | 2024-03-17 20:38 | P.PN ---
Subjective Progress Note Date: 03/17/24 HISTORY OF PRESENT ILLNESS: 73-year-old with active medical history of chronic iron deficiency anemia, hypertension, hyperlipidemia, severe spinal stenosis, degenerative disc disease, obesity post gastric sleeve back in 2009, lumbar spine second5 postrepair surgically back in 2022 which patient still currently having problem with balance and gait and mobility. She called 911 today because of severe symptoms consistent with weakness, imbalance, multiple falls, fatigue, slight shortness of breath she apparently has been seeing her neurosurgeon with surgical intervention had on her back did not work out well she had scheduled the MRI will be done this Saturday at [facility] down in [place]. She also has been complaining slight worsening shortness of breath without cough or wheezes patient had no history of heart disease does not use any oxygen in the past she has been having palpitation mild chest tightness and pressure with significant nausea and GI symptoms. Ended up seen in the emergency department her initial presentation with pulse rate running slightly better. Between 100 and 140 pulse ox slightly bit low require 4 L to keep her pulse ox above 90 percentile with blood pressure under control. Laboratory value at the time with normal WBC hemoglobin hematocrit, sodium and potassium are little bit low troponin was mildly elevated at 0.174 with quite elevated proBNP at 18,400 D- dimer was quite bit elevated 6.30 with negative influenza COVID and RSV. Chest x-ray shows no pulmonary process was found with the D-dimer being elevated in th e going for CTA shows bilateral pulmonary embolism along with a saddle embolism moderate to severe scatter burden right heart strain some interstitial fibrosis at the lung base with pulmonary arterial hypertension and coronary artery calcification. Venous Doppler came back with right lower extremity acute DVT involving the deep femoral vein popliteal vein and upper calf vein, possible more subacute on chronic left lower extremity involving the lower femoral vein along with partial compressibility. EKG showed sinus tachycardia with ST deviated with slight abnormality in the anterolateral leads. Patient was admitted to the hospital on 03/16/2024 in general for severe hypoxia, bilateral pulmonary embolism to be anastomosis both lower extremity, possible non-ST HI, CHF, pulmonary hypertension, electrolyte imbalance. 03/17/2024: Patient resting in the ICU in bed comfortably still have oxygen to keep her pulse ox above 90 percentile and running about 2 L nasal cannula her blood pressure still slightly below does not require any pressor. She is seen pulmonary and seen cardiology and the time with her massive bilateral pulmonary embolism bilateral lower extremity DVT to continue anticoagulation and proceed with EKOS procedure with interventional cardiology for thrombectomy. Blood sugars running in the low 100, hemoglobin remained stable at 15.0 with no anemia electrolyte balance has been normal UA was negative as well. REVIEW OF SYSTEMS: CONSTITUTIONAL: Well-developed no acute respiratory distress. EYES: No icterus sclerae, no conjunctivitis. EARS, NOSE, MOUTH, THROAT, and FACE: No sore throat, lymphadenopathy, carotid bruits or deformity. RESPIRATORY: Positive shortness of breath cough or wheezes. CARDIOVASCULAR: Positive PND orthopnea palpitation no angina. GASTROINTESTINAL: No Abd pain, Nausea or vomiting, no Diarrhea or constipation, No GI Bleed, no distention or masses. GENITOURINARY: Negative for Hematuria or UTI, no kidney stones. INTEGUMENT/BREAST: Negative for any muscular injury with mild osteoarthritis.. HEMATOLOGIC/LYMPHATIC: Negative for bleed or purpura. MUSCULOSKELTAL: Generalized arthralgia and myalgia. NEURLOGICAL: No LOC, Sz or syncope, blurred vision dizziness or abnormality.. Significant lower extremity weakness. BEHAVIORAL/PSYCH: Negative. ENDOCRINE: Negative. PHYSICAL EXAMINATION: General Appearance: Alert, cooperative, no distress, appears stated age. Neck HEENT: Supple, no lymphadenopathy, no thyroid enlargement, no carotid bruits. Lungs: Decreased breath sound bilaterally with fine rhonchi positive mild expiratory wheezes with slight crackles in the base. Chest Wall: Decreased expansion with deep inspiration no tenderness and no deformity was found on exam, no costochondral pain or discomfort. Heart: Regular rate and rhythm, S1, S2 positive tachycardia, normal, no murmur, rub or gallop. Back: Symmetric, no curvature, ROM normal, no CVA tenderness. Abdomen: Soft, non-tender, bowel sounds active all four quadrants, no masses, no organomegaly. Extremities: Slight edema bilaterally with decreased pulse dorsalis pedis Pulses: 2+ and symmetric. Skin: Skin color, texture, tugor normal, no rashes or lesions. Neurologic: Alert oriented x3 cranial nerves II through XII intact, positive generalized weakness with abnormal balance and gait. ASSESSMENT AND PLAN: _Significant hypoxia and mild respiratory failure: Secondary to bilateral pulmonary embolism and slight starting with the right side of the heart causing problem also whether non-ST HI has anything to do or not is to be determined. _Bilateral pulmonary embolism she was Started on heparin drip per PE and DVT protocol, apparently looking for EKOS procedure with lacquer sizer later on to remove her thrombus. Will continue anticoagulation with heparin drip and switch patient to Eliquis 10 mg twice a day for 2 weeks then 5 mg twice a day thereafter. _Bilateral DVT of the lower extremity with acute on the right subacute on the left: Patient be on anticoagulation as a result the same so continue heparin drip with potential moving into Eliquis 10 mg twice a day for 2 weeks then 5 mg twice a day thereafter for possible 1 year with extension for lifetime if there is proven to be with history of coagulopathy. _Possible non-ST HI with elevated troponin and slight change in EKG trend and pattern, this is most likely type II myocardial infarction with possibility caused by pulmonary embolism _Severe dizziness with abnormal balance and gait: Remain secondary to vertigo recently was treated with continue not to do well with balance and gait. _Hypertension: Remain on Dyazide which seem to control blood pressure well lately. _Electrolyte imbalance with mild hyponatremia: Continue fluid restriction watch sodium on daily basis. _Severe pulmonary hypertension: Again patient will be on diuretics along with calcium channel milad and possibly nitrate eventually need to go back to see 1 of pulmonary hypertension clinician. _Post gastric sleeve in the past with over 100 pounds weight loss has done bet ter with the slight complication related to aggressive weight loss. _Mild overflow incontinence: Remain on Myrbetriq 25 mg a day which seems to do better with current medication. _Severe GERD/GI prophylaxis: Patient will be on pantoprazole. Discussion: Patient transferred to the ICU resting comfortably on oxygen does not require any pressor to keep her blood pressure above 100 systolic. Patient seen pulmonary and cardiology planning to go for EKOS procedure with lacquer sizer for possible extraction of the thrombus. Objective - Vital Signs Vital signs: Vital Signs Temp 97.9 F 03/16/24 15:19 Pulse 86 03/17/24 03:00 Resp 15 03/17/24 03:00 BP 143/83 03/17/24 03:00 Pulse Ox 99 03/17/24 03:00 FiO2 Intake & Output 03/16/24 03/16/24 03/17/24 06:59 18:59 06:59 Intake Total 73.305 Balance 73.305 Weight 60.781 kg Intake: Intake, IV Titration 73.305 Amount Heparin Sod,Pork in 0.45% 73.305 NaCl 25,000 unit In 0.45 % NaCl 1 250ml.bag @ 18 UNITS/KG/HR 10.941 mls/hr IV .[id number] [facility] Rx#: [id number] - Labs CBC & Chem 7: 03/17/24 10:17 03/17/24 10:17 Labs: Abnormal Lab Results - Last 24 Hours (Table) 03/16/24 03/16/24 03/16/24 Range/Units 16:09 16:09 16:09 MCV 105.2 H (80.0-100.0) fL RDW 18.8 H (11.5-15.5) % Macrocytosis Marked A APTT (22.0-30.0) sec D-Dimer (<0.60) mg/L FEU Sodium 132 L (137-145) mmol/L Potassium 3.3 L (3.5-5.1) mmol/L Glucose 109 H (74-99) mg/dL Alkaline Phosphatase 152 H (38-126) U/L Troponin I 0.147 H* (0.000-0.034) ng/mL Total Protein 5.8 L (6.3-8.2) g/dL Albumin 3.1 L (3.5-5.0) g/dL Urine Appearance (Clear) Ur Specific Eros (1.001-1.035) Ur Leukocyte Esterase (Negative) Urine WBC (0-5) /hpf Ur Squamous Epith Cells (0-4) /hpf Urine Bacteria (None) /hpf Urine Mucus (None) /hpf Urine Yeast (Budding) (None) /hpf 03/16/24 03/16/24 03/17/24 Range/Units 16:09 20:19 00:18 MCV (80.0-100.0) fL RDW (11.5-15.5) % Macrocytosis APTT >200.0 H* (22.0-30.0) sec D-Dimer 6.30 H (<0.60) mg/L FEU Sodium (137-145) mmol/L Potassium (3.5-5.1) mmol/L Glucose (74-99) mg/dL Alkaline Phosphatase (38-126) U/L Troponin I 0.190 H* (0.000-0.034) ng/mL Total Protein (6.3-8.2) g/dL Albumin (3.5-5.0) g/dL Urine Appearance (Clear) Ur Specific Eros (1.001-1.035) Ur Leukocyte Esterase (Negative) Urine WBC (0-5) /hpf Ur Squamous Epith Cells (0-4) /hpf Urine Bacteria (None) /hpf Urine Mucus (None) /hpf Urine Yeast (Budding) (None) /hpf 03/17/24 Range/Units 02:45 MCV (80.0-100.0) fL RDW (11.5-15.5) % Macrocytosis APTT (22.0-30.0) sec D-Dimer (<0.60) mg/L FEU Sodium (137-145) mmol/L Potassium (3.5-5.1) mmol/L Glucose (74-99) mg/dL Alkaline Phosphatase (38-126) U/L Troponin I (0.000-0.034) ng/mL Total Protein (6.3-8.2) g/dL Albumin (3.5-5.0) g/dL Urine Appearance Cloudy H (Clear) Ur Specific Eros 1.050 H (1.001-1.035) Ur Leukocyte Esterase Moderate H (Negative) Urine WBC 22 H (0-5) /hpf Ur Squamous Epith Cells 5 H (0-4) /hpf Urine Bacteria Rare H (None) /hpf Urine Mucus Rare H (None) /hpf Urine Yeast (Budding) Rare H (None) /hpf
[2024-03-17] MEDS: APIXABAN 5 MG TAB PO SCH (20:59)
[2024-03-17] MEDS: ASPIRIN 325 MG TAB PO SCH (20:59)
--- NOTE | 2024-03-17 21:04 | P.PCN ---
Date of Procedure: 03/17/24 Operative Findings: Pulmonary artery thrombectomy Performing physician Gabe Patricia MD Procedure performed 1. Successful aspiration thrombectomy from the right and left pulmonary arteries using the (INARI) device with the extraction of large fresh thrombus from both pulmonary arteries and reduction in the pulmonary artery systolic pressure 2. Selective bilateral pulmonary artery angiography 3. Right heart catheterization 4. Ultrasound-guided access of the right common femoral vein Indication Submassive pulmonary embolism. The patient is a pleasant 73-year-old female patient was admitted to the hospital with shortness of breath and she was found to be hypoxic and tachycardic. Further evaluation was performed including blood work showed elevated troponin and CT scan of the chest which showed dilated right ventricle with RV to LV ratio more than 1. Also further risk stratification performed using an echo showed dilated right ventricle with evidence of right ventricular apex hypokinesia consistent with Singh sign. Approach Right common femoral vein Indication None Level of sedation Moderate with sedation length of about 60 minutes Procedure description After obtaining an informed consent the patient was brought to the cardiac Walking Dragline Oiler. The right common femoral vein was cannulated using micropuncture technique under ultrasound guidance the micropuncture wire passed easily then in place initially a 6 Jordanian 11 cm sheath at the right common femoral vein under fluoroscopy guidance. Attempting engaging the pulmonary artery using 6 Jordanian [place] catheter which was advanced under fluoroscopy guidance with balloontipped all the way to the right atrium and the right ventricle and subsequently attempting advancing the catheter to the pulmonary artery was unsuccessful because I could not transmit my torque and at that point I decided to upgrade my sheath into an 8 Jordanian 11 cm sheath and at that point I was able to advance a 7 Jordanian [place] catheter with balloon clip under fluoroscopy guidance all the way to the right atrium and the right ventricle and subsequently to the left pulmonary artery. I did pulmonary capillary wedge pressure which came to be elevated and pulmonary artery systolic pressure measurement and also that came into elevated almost exceeding 60 mmHg. At that point I did place LV 18 wire and the [place] catheter and the [place] catheter was pulled out. After that I placed and advanced multipurpose catheter over the V18 wire all the way to the right pulmonary artery. Subsequently I advanced a stiff Amplatzer wire and the multipurpose catheter and the multipurpose catheter was taken out. Using the stiff 035 wire I did exchange my 8 Jordanian 11 cm sheath into a 22 Jordanian shuttle sheath which was advanced under fluoroscopy guidance all the way to the inferior vena cava. Subsequently the aspiration thrombectomy catheter was advanced over the stiff wire all the way to the initially right pulmonary artery were added multiple suction with the extraction of fresh thrombus from the right pulmonary artery and subsequently an angiogram was performed and showed good results and then using a [place] catheter I was able to advance the aspiration thrombectomy catheter in the left pulmonary artery were also I was able to extract the largest fresh thrombus from the left pulmonary artery. After that an angiogram was performed also showed good angiographic results. After that I did right heart catheterization again using the aspiration catheter itself and that showed reduction in the pulmonary artery systolic pressure to about 50 mmHg. We decided at that point to stop. The catheter was pulled out over a 3 5 wire and subsequently we did manual pullback of the larger sheath and we achieved good hemostasis with a soft nontender groin. Postprocedure management Restart the patient on oral anticoagulation once we have good hemostasis in the right groin Follow-up with the patient
[2024-03-18 06:43] LABS: Glucose,Whole Blood 50 mg/dL (70-110)
[2024-03-18 07:08] LABS: ALT 14 U/L (4-34); AST 25 U/L (14-36); African American GFR (CKD) 76 (>60 ml/min/1.73 sqM); Albumin 2.4 g/dL (3.5-5.0); Alkaline Phosphatase 102 U/L (38-126); Anion Gap 6 mmol/L; Blood Urea Nitrogen 10 mg/dL (7-17); Calcium 8.2 mg/dL (8.4-10.2); Carbon Dioxide 25 mmol/L (22-30); Chloride 103 mmol/L (98-107); Glucose 67 mg/dL (74-99); Non-African American GFR(CKD) 66 (>60 ml/min/1.73 sqM); Potassium 3.2 mmol/L (3.5-5.1); Sodium 134 mmol/L (137-145); Total Bilirubin 0.7 mg/dL (0.2-1.3)
[2024-03-18 07:26] LABS: Anisocytosis Slight; Basophils % (A) 1 %; Eosinophils # (A) 0.2 k/uL (0-0.7); Eosinophils % (A) 3 %; HCT 37.5 % (34.0-46.0); HGB 12.2 gm/dL (11.4-16.0); Lymphocytes # (A) 1.1 k/uL (1.0-4.8); Lymphocytes % (A) 19 %; MCH 34.4 pg (25.0-35.0); MCHC 32.5 g/dL (31.0-37.0); MCV 105.9 fL (80.0-100.0); Macrocytosis Marked; Mean Platelet Volume 9.5; Monocytes # (A) 0.3 k/uL (0-1.0); Monocytes % (A) 6 %; Neutrophils # (A) 4.1 k/uL (1.3-7.7); Neutrophils % (A) 70 %; Platelet Count 319 k/uL (150-450); RBC 3.55 m/uL (3.80-5.40); RDW 18.9 % (11.5-15.5); WBC 5.9 k/uL (3.8-10.6)
[2024-03-18 07:33] LABS: Glucose,Whole Blood 129 mg/dL (70-110)
[2024-03-18] MEDS ORDERED: Potassium Replacement Protocol 1 EACH MISC MISCELLANE PRN (08:05)
[2024-03-18] MEDS: POTASSIUM CHLORIDE ER 20 MEQ TAB.ER PO SCH (08:18)
--- NOTE | 2024-03-18 09:35 | P.PN ---
Subjective Progress Note Date: 03/18/24 The patient is a 73-year-old female who is currently admitted to the hospital with bilateral lower extremity DVT and acute pulmonary embolism. Patient underwent successful aspiration thrombectomy yesterday with Dr. Patricia. Patient was thereafter started on Eliquis 10 mg twice daily. Patient interviewed and examined resting comfortably in bed. She states she did well during her procedure and has noticed no change in symptoms postoperatively. She states her chest discomfort had resolved by the time she went for her procedure yesterday. She is concerned about her lower extremity DVT and we discussed the importance of continuing anticoagulation. Nursing staff reports that vascular has been consulted. GENERAL: Well-appearing, well-nourished and in no acute distress. NECK: Supple without JVD or thyromegaly. LUNGS: Breath sounds clear to auscultation bilaterally. Respiration equal and unlabored. No wheezes, rales or rhonchi. HEART: Regular rate and rhythm without murmurs, rubs or gallops. S1 and S2 heard. EXTREMITIES: Normal range of motion, no edema. No clubbing or cyanosis. Peripheral pulses intact and strong. No hematoma in right groin. TELEMETRY: Sinus rhythm overnight LABS: WBC 5.9, hemoglobin 12.2, hematocrit 37.5, platelet 319, sodium 134, potassium 3.2, BUN 10, creatinine 0.88, AST 25, ALT 14 IMPRESSION: Submassive bilateral pulmonary emboli Status post aspiration thrombectomy Bilateral lower extremity DVT Elevated troponin, secondary to right heart strain PLAN: Repeat limited echocardiogram to reevaluate RV strain Continue anticoagulation Further recommendations to be based upon clinical course I am dictating on behalf of Dr Robert Aviles's history/physical and as sessment/plan. Objective - Vital Signs Vital signs: Vital Signs Temp 97.6 F 03/18/24 08:00 Pulse 105 H 03/18/24 08:00 Resp 23 03/18/24 08:00 BP 103/79 03/18/24 08:00 Pulse Ox 96 03/18/24 08:00 FiO2 Intake & Output 03/17/24 03/18/24 03/18/24 18:59 06:59 18:59 Intake Total 2567.408 2447 180 Output Total 300 200 Balance 862.505 952 180 Weight 60.781 kg 68.6 kg Intake: IV 520 375 0.9 20 Dextrose 5%-0.9% NaCl 1, 375 000 ml @ 75 mls/hr IV . [id number] RASHAAD Rx#:[id number] Intake, IV Titration 442.505 Amount Dextrose 5%-0.9% NaCl 1, 150 000 ml @ 75 mls/hr IV . [id number] RASHAAD Rx#:[id number] Heparin Sod,Pork in 0.45% 67.505 NaCl 25,000 unit In 0.45 % NaCl 1 250ml.bag @ 18 UNITS/KG/HR 10.941 mls/hr IV .[id number] RASHAAD Rx#: [id number] Sodium Chloride 0.9% 1, 225 000 ml In Empty Bag 1 bag @ 75 mls/hr IV .[id number] RASHAAD Rx#:[id number] Oral 200 777 180 Output: Urine 300 200 Other: Voiding Method External Catheter - Labs CBC & Chem 7: 03/18/24 06:27 03/18/24 06:27 Labs: Abnormal Lab Results - Last 24 Hours (Table) 03/17/24 03/17/24 03/17/24 Range/Units 10:17 10:17 10:17 RBC (3.80-5.40) m/uL Hct 47.6 H (34.0-46.0) % MCV 106.9 H (80.0-100.0) fL RDW 18.8 H (11.5-15.5) % Macrocytosis Marked A APTT 54.6 H (22.0-30.0) sec Sodium 134 L (137-145) mmol/L Potassium (3.5-5.1) mmol/L Glucose (74-99) mg/dL POC Glucose (mg/dL) (70-110) mg/dL Calcium (8.4-10.2) mg/dL AST 38 H (14-36) U/L Alkaline Phosphatase 128 H (38-126) U/L Total Protein 6.2 L (6.3-8.2) g/dL Albumin 3.1 L (3.5-5.0) g/dL 03/17/24 03/17/24 03/17/24 Range/Units 16:36 17:42 20:03 RBC (3.80-5.40) m/uL Hct (34.0-46.0) % MCV (80.0-100.0) fL RDW (11.5-15.5) % Macrocytosis APTT (22.0-30.0) sec Sodium (137-145) mmol/L Potassium (3.5-5.1) mmol/L Glucose (74-99) mg/dL POC Glucose (mg/dL) 63 L 119 H 122 H (70-110) mg/dL Calcium (8.4-10.2) mg/dL AST (14-36) U/L Alkaline Phosphatase (38-126) U/L Total Protein (6.3-8.2) g/dL Albumin (3.5-5.0) g/dL 03/18/24 03/18/24 03/18/24 Range/Units 06:27 06:27 06:41 RBC 3.55 L (3.80-5.40) m/uL Hct (34.0-46.0) % MCV 105.9 H (80.0-100.0) fL RDW 18.9 H (11.5-15.5) % Macrocytosis Marked A APTT (22.0-30.0) sec Sodium 134 L (137-145) mmol/L Potassium 3.2 L (3.5-5.1) mmol/L Glucose 67 L (74-99) mg/dL POC Glucose (mg/dL) 50 L (70-110) mg/dL Calcium 8.2 L (8.4-10.2) mg/dL AST (14-36) U/L Alkaline Phosphatase (38-126) U/L Total Protein 5.0 L (6.3-8.2) g/dL Albumin 2.4 L (3.5-5.0) g/dL 03/18/24 Range/Units 07:32 RBC (3.80-5.40) m/uL Hct (34.0-46.0) % MCV (80.0-100.0) fL RDW (11.5-15.5) % Macrocytosis APTT (22.0-30.0) sec Sodium (137-145) mmol/L Potassium (3.5-5.1) mmol/L Glucose (74-99) mg/dL POC Glucose (mg/dL) 129 H (70-110) mg/dL Calcium (8.4-10.2) mg/dL AST (14-36) U/L Alkaline Phosphatase (38-126) U/L Total Protein (6.3-8.2) g/dL Albumin (3.5-5.0) g/dL
[2024-03-18 10:40] VITALS: BMI 27.6
--- NOTE | 2024-03-18 10:58 | P.GSCN ---
History of Present Illness Consult date: 03/18/24 Reason for Consult: Bilateral DVT possible requirement of thrombectomy Requesting physician: Kaleb Nicolas History of present illness: This is a pleasant 73-year-old female with a past medical history significant for peptic ulcer disease, hypertension, GERD and back pain who had presented to the emergency department with complaints of exertional dyspnea and weakness. She was noted to have elevated D-dimer, she had a chest CTA with findings of saddle embolus with right heart strain. She was seen by cardiology and u arnoldrwent aspiration thrombectomy yesterday with Inari as well as right heart catheterization. Patient reports improvement in her breathing. She is currently on oxygen 2 L per nasal cannula. She was also noted to have bilateral DVTs, thus vascular surgery was consulted. She denies any recent surgeries. No previous history of DVT or pulmonary embolism, no clotting disorders, however she did recently travel out of state [address] She denies any pain in her lower extremities. Minimal swelling. Review of Systems A 14 point review systems was completed all pertinent positives and negatives as stated in the HPI. Past Medical History Past Medical History: GERD/Reflux, Hypertension Additional Past Medical History / Comment(s): stomach ulcers x2 in 2015, current anemia History of Any Multi-Drug Resistant Organisms: None Reported Past Surgical History: Back Surgery, Bariatric Surgery, Cholecystectomy, Orthopedic Surgery, Tonsillectomy Additional Past Surgical History / Comment(s): gastric sleeve in 2009, EGD, ORIF right arm. L2-L5 repair 2022. Past Anesthesia/Blood Transfusion Reactions: No Reported Reaction Past Psychological History: No Psychological Hx Reported Smoking Status: Never smoker Past Alcohol Use History: Occasional Past Drug Use History: None Reported - Past Family History Mother Family Medical History: Cancer Additional Family Medical History / Comment(s): breast Medications and Allergies Home Medications Medication Instructions Recorded Confirmed Type Mirabegron [Myrbetriq] 25 mg PO DAILY 03/16/24 03/16/24 History Pantoprazole [Protonix] 40 mg PO DAILY 03/16/24 03/16/24 History hydroCHLOROthiazide 12.5 mg PO DAILY 03/16/24 03/16/24 History Allergies Allergy/AdvReac Type Severity Reaction Status Date / Time No Known Allergies Allergy Verified 03/16/24 16:07 Surgical - Exam Vital Signs Temp Pulse Resp BP Pulse Ox 97.9 F 120 H 20 121/93 94 L 03/16/24 15:19 03/16/24 15:19 03/16/24 15:19 03/16/24 15:19 03/16/24 15:19 General appearance: The patient is alert, oriented, appears in no acute distress. HET: Head is normocephalic and atraumatic. Pupils are equal and reactive. Neck: Supple. Heart: Regular. Lungs: Equal expansion, normal respiratory effort. Abdomen: Soft, nontender, nondistended. Extremities: Normal skin color and turgor. Palpable bilateral femoral and DP pulses. No significant lower extremity edema. Neurological: No focal deficits. Strength and sensation are grossly intact. Results - Labs 03/18/24 06:27 03/18/24 06:27 Abnormal Lab Results - Last 24 Hours (Table) 03/17/24 03/17/24 03/17/24 Range/Units 10:17 10:17 10:17 RBC (3.80-5.40) m/uL Hct 47.6 H (34.0-46.0) % MCV 106.9 H (80.0-100.0) fL RDW 18.8 H (11.5-15.5) % Macrocytosis Marked A APTT 54.6 H (22.0-30.0) sec Sodium 134 L (137-145) mmol/L Potassium (3.5-5.1) mmol/L Glucose (74-99) mg/dL POC Glucose (mg/dL) (70-110) mg/dL Calcium (8.4-10.2) mg/dL AST 38 H (14-36) U/L Alkaline Phosphatase 128 H (38-126) U/L Total Protein 6.2 L (6.3-8.2) g/dL Albumin 3.1 L (3.5-5.0) g/dL 03/17/24 03/17/24 03/17/24 Range/Units 16:36 17:42 20:03 RBC (3.80-5.40) m/uL Hct (34.0-46.0) % MCV (80.0-100.0) fL RDW (11.5-15.5) % Macrocytosis APTT (22.0-30.0) sec Sodium (137-145) mmol/L Potassium (3.5-5.1) mmol/L Glucose (74-99) mg/dL POC Glucose (mg/dL) 63 L 119 H 122 H (70-110) mg/dL Calcium (8.4-10.2) mg/dL AST (14-36) U/L Alkaline Phosphatase (38-126) U/L Total Protein (6.3-8.2) g/dL Albumin (3.5-5.0) g/dL 03/18/24 03/18/24 03/18/24 Range/Units 06:27 06:27 06:41 RBC 3.55 L (3.80-5.40) m/uL Hct (34.0-46.0) % MCV 105.9 H (80.0-100.0) fL RDW 18.9 H (11.5-15.5) % Macrocytosis Marked A APTT (22.0-30.0) sec Sodium 134 L (137-145) mmol/L Potassium 3.2 L (3.5-5.1) mmol/L Glucose 67 L (74-99) mg/dL POC Glucose (mg/dL) 50 L (70-110) mg/dL Calcium 8.2 L (8.4-10.2) mg/dL AST (14-36) U/L Alkaline Phosphatase (38-126) U/L Total Protein 5.0 L (6.3-8.2) g/dL Albumin 2.4 L (3.5-5.0) g/dL 03/18/24 Range/Units 07:32 RBC (3.80-5.40) m/uL Hct (34.0-46.0) % MCV (80.0-100.0) fL RDW (11.5-15.5) % Macrocytosis APTT (22.0-30.0) sec Sodium (137-145) mmol/L Potassium (3.5-5.1) mmol/L Glucose (74-99) mg/dL POC Glucose (mg/dL) 129 H (70-110) mg/dL Calcium (8.4-10.2) mg/dL AST (14-36) U/L Alkaline Phosphatase (38-126) U/L Total Protein (6.3-8.2) g/dL Albumin (3.5-5.0) g/dL Diabetes panel 03/17/24 03/18/24 Range/Units 10:17 06:27 Sodium 134 L 134 L (137-145) mmol/L Potassium 3.7 3.2 L (3.5-5.1) mmol/L Chloride 102 103 (98-107) mmol/L Carbon Dioxide 26 25 (22-30) mmol/L BUN 14 10 (7-17) mg/dL Creatinine 0.96 0.88 (0.52-1.04) mg/dL Glucose 99 67 L (74-99) mg/dL Calcium 8.6 8.2 L (8.4-10.2) mg/dL AST 38 H 25 (14-36) U/L ALT 18 14 (4-34) U/L Alkaline Phosphatase 128 H 102 (38-126) U/L Total Protein 6.2 L 5.0 L (6.3-8.2) g/dL Albumin 3.1 L 2.4 L (3.5-5.0) g/dL Calcium panel 03/17/24 03/18/24 Range/Units 10:17 06:27 Calcium 8.6 8.2 L (8.4-10.2) mg/dL Albumin 3.1 L 2.4 L (3.5-5.0) g/dL Pituitary panel 03/17/24 03/18/24 Range/Units 10:17 06:27 Sodium 134 L 134 L (137-145) mmol/L Potassium 3.7 3.2 L (3.5-5.1) mmol/L Chloride 102 103 (98-107) mmol/L Carbon Dioxide 26 25 (22-30) mmol/L BUN 14 10 (7-17) mg/dL Creatinine 0.96 0.88 (0.52-1.04) mg/dL Glucose 99 67 L (74-99) mg/dL Calcium 8.6 8.2 L (8.4-10.2) mg/dL Adrenal panel 03/17/24 03/18/24 Range/Units 10:17 06:27 Sodium 134 L 134 L (137-145) mmol/L Potassium 3.7 3.2 L (3.5-5.1) mmol/L Chloride 102 103 (98-107) mmol/L Carbon Dioxide 26 25 (22-30) mmol/L BUN 14 10 (7-17) mg/dL Creatinine 0.96 0.88 (0.52-1.04) mg/dL Glucose 99 67 L (74-99) mg/dL Calcium 8.6 8.2 L (8.4-10.2) mg/dL Total Bilirubin 1.0 0.7 (0.2-1.3) mg/dL AST 38 H 25 (14-36) U/L ALT 18 14 (4-34) U/L Alkaline Phosphatase 128 H 102 (38-126) U/L Total Protein 6.2 L 5.0 L (6.3-8.2) g/dL Albumin 3.1 L 2.4 L (3.5-5.0) g/dL - Imaging Comments: Venous duplex reports correlate for right lower extremity acute DVT involving the deep femoral vein, popliteal vein, and upper calf veins. Possibly more subacute or chronic DVT left lower extremity involving the lower femoral vein given partial compressibility Assessment and Plan Assessment: 1. Bilateral lower extremity DVTs 2. Saddle pulmonary embolism with right heart strain status post thrombectomy 3. Recent travel, long duration Plan: 1. There is no indication for any vascular surgical intervention for deep vein thrombosis. Patient has minimal swelling. 2. Recommend bilateral lower extremity compression stockings 3. Continue with anticoagulation as ordered 4. Discussed with patient if she has increased swelling of the lower extremities she may follow-up with vascular surgery as needed. Thank you for this consultation, we will sign off at this time. The impression and plan of care has been dictated as directed. I performed a history and examination of this patient, discussed the same with the dictator. I agree with the dictator's note ,documented as a scribe. Any additional findings or plans will be noted.
--- NOTE | 2024-03-18 11:47 | CA ---
Transthoracic Echo Report Name: Gillian Paz Age: 73 Gender: F : 1950 Exam Date: 03/18/2024 10:25 Exam Location: [facility] Ht (in): 62 Wt (lb): 151 Ordering Physician: Leatha Davies Attending/Referring Phys: [id number], [employer] Supervisor Constanza Torres, RDCS Procedure CPT: Indications: Pulmonary embolism, RV strain, s/p thrombectomy Cardiac Hx: PE Technical Quality: Fair Contrast 1: Total Dose (mL): Contrast 2: Total Dose (mL): MEASUREMENTS (Male / Female) Normal Values 2D ECHO LV Diastolic Diameter PLAX 3.5 cm 4.2 - 5.9 / 3.9 - 5.3 cm LV Systolic Diameter PLAX 2.5 cm IVS Diastolic Thickness 0.9 cm 0.6 - 1.0 / 0.6 - 0.9 cm LVPW Diastolic Thickness 1.0 cm 0.6 - 1.0 / 0.6 - 0.9 cm LV Relative Wall Thickness 0.6 RV Internal Dim ED PLAX 3.1 cm DOPPLER TR Peak Velocity 281.3 cm/s TR Peak Gradient 31.7 mmHg Right Ventricular Systolic Press 41.2 mmHg FINDINGS Left Ventricle Left ventricular ejection fraction is estimated at 55-60 %. Normal Left ventricular size, wall thickness, systolic function with no obvious regional wall motion abnormalities. Right Ventricle Severe right ventricular dilatation. Reduced right ventricular global systolic function. Mild pulmonary hypertension. TAPSE 10 mm Right Atrium Left Atrium Mitral Valve Aortic Valve Tricuspid Valve Pulmonic Valve Pericardium No pericardial or pleural effusion. Aorta CONCLUSIONS Enlarged right ventricle with the global decrease in contractility compared to yesterday the RV appears to be the same. LV function is normal. PA pressures are about 45 mmHg Previewed by: Dr. Derrell Anderson MD (Electronically Signed) Final Date: 18 March 2024 11:46
[2024-03-18] MEDS: DEXTROSE 5%-0.45% NACL 1,000 ML IV SCH (12:00)
--- NOTE | 2024-03-18 12:26 | P.PN ---
Subjective Progress Note Date: 03/18/24 Principal diagnosis: Acute pulmonary embolism Patient is a 73-year-old female with past medical history significant for peptic ulcer disease, hypertension. Of note, patient is currently having problems with balance and gait. She ambulates with a cane. She is being evaluated by a neurosurgeon for possible surgical intervention. She does have history of lumbar surgery done at [facility] in March,. More recently, patient is having severe exertional dyspnea and fatigue. Denies any chest pain. Denies any cough. Denies any fevers. No lightheadedness or syncopal events. She has chest tightness for 1 week. Presented the emergency department yesterday afternoon. D-dimer was elevated at 6.3. Chest CT angio protocol performed. She was found to have bilateral pulmonary emboli along with a saddle pulmonary embolus. Moderate to severe scattered burden. CT evidence of right- sided heart strain. Also, mild interstitial fibrosis at the bases. 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 I am evaluating this patient in the emergency department. She is currently on 2 L nasal cannula. SpO2 97%. Nontachypneic. Blood pressure is normotensive. Heart rate is 98 bpm. She is not on any vasopressors at the moment. She appears comfortable and not in any distress. On further questioning, she did have a long car ride to [place] last week. She did not make many stops along the way. She has no personal or familial history of DVT/PE. No recent traumatic events or surgical procedures. No recent hospitalizations. CBC: WBC count 8.9, hemoglobin 14.6, hematocrit 44.7, platelets 286. CMP: Sodium 132, potassium 3.3, chloride 99, serum bicarb 27, BUN 17, creatinine 0.94, glucose 109. Troponin 0.147 and 0.19 respectively. NT proBNP elevated at 18,400. EKG done on arrival: Sinus tachycardia, rate 116 bpm, diffuse ST/T wave abnormalities. High intensity heparin infusion continues per protocol. A transthoracic echocardiogram is pending. Cardiovascular surgeon is aware of the case, and patient is potential candidate for EKOS procedure or mechanical thrombectomy. She will be admitted to the intensive care unit once bed available. Patient seen today on 03/18/2024, she is now status post successful aspiration thrombectomy of right and left pulmonary arteries using inari device, patient had a significant clot burden and there was successful aspiration. Patient remains in the ICU, doing well, she is now on oral anticoagulation therapy/Eliquis. Hardly any pulmonary symptoms, no cough no wheezing no shortness of breath, patient had an initial presentation of profound weakness when she had her pulmonary embolism discomfort. It may have been triggered by a long drive that she had an car from [place] to [place] back and forth patient also had bilateral lower extremity DVTs associated with saddle pulmonary embolism and right heart strain.Labs today showed relatively normal CBC normal electrolytes except for low potassium of 3.2 otherwise labs are normal. Objective - Vital Signs Vital signs: Vital Signs Temp 97.6 F 03/18/24 08:00 Pulse 105 H 03/18/24 08:00 Resp 23 03/18/24 08:00 BP 103/79 03/18/24 08:00 Pulse Ox 96 03/18/24 08:00 FiO2 Intake & Output 03/17/24 03/18/24 03/18/24 18:59 06:59 18:59 Intake Total 9276.891 6142 180 Output Total 300 200 Balance 862.505 952 180 Weight 60.781 kg 68.6 kg 68.6 kg Intake: IV 520 375 0.9 20 Dextrose 5%-0.9% NaCl 1, 375 000 ml @ 75 mls/hr IV . [id number] ARSHAAD Rx#:[id number] Intake, IV Titration 442.505 Amount Dextrose 5%-0.9% NaCl 1, 150 000 ml @ 75 mls/hr IV . [id number] RASHAAD Rx#:[id number] Heparin Sod,Pork in 0.45% 67.505 NaCl 25,000 unit In 0.45 % NaCl 1 250ml.bag @ 18 UNITS/KG/HR 10.941 mls/hr IV .[id number] RASHAAD Rx#: [id number] Sodium Chloride 0.9% 1, 225 000 ml In Empty Bag 1 bag @ 75 mls/hr IV .[id number] RASHAAD Rx#:[id number] Oral 200 777 180 Output: Urine 300 200 Other: Voiding Method External Catheter - Exam GENERAL EXAM: Alert, 73-year-old white female, no distress, on room air HEAD: Normocephalic and atraumatic EYES: Normal reaction of pupils, equal size. NOSE: Clear with pink turbinates. THROAT: No erythema or exudates. NECK: No masses, no JVD. CHEST: No chest wall deformity. LUNGS: Air bilaterally no crackles rhonchi or wheezes CVS: S1 and S2 normal with no audible murmur, regular rhythm. No extra heart sounds ABDOMEN: No hepatosplenomegaly, active bowel sounds, no guarding or rigidity. SKIN: No rashes CENTRAL NERVOUS SYSTEM: No focal deficits, tone is normal in all 4 extremities. EXTREMITIES: There is no peripheral edema, clubbing, or cyanosis. Peripheral pulses are intact. - Labs CBC & Chem 7: 03/18/24 06:27 03/18/24 06:27 Labs: Abnormal Lab Results - Last 24 Hours (Table) 03/17/24 03/17/24 03/17/24 Range/Units 16:36 17:42 20:03 RBC (3.80-5.40) m/uL MCV (80.0-100.0) fL RDW (11.5-15.5) % Macrocytosis Sodium (137-145) mmol/L Potassium (3.5-5.1) mmol/L Glucose (74-99) mg/dL POC Glucose (mg/dL) 63 L 119 H 122 H (70-110) mg/dL Calcium (8.4-10.2) mg/dL Total Protein (6.3-8.2) g/dL Albumin (3.5-5.0) g/dL 03/18/24 03/18/24 03/18/24 Range/Units 06:27 06:27 06:41 RBC 3.55 L (3.80-5.40) m/uL MCV 105.9 H (80.0-100.0) fL RDW 18.9 H (11.5-15.5) % Macrocytosis Marked A Sodium 134 L (137-145) mmol/L Potassium 3.2 L (3.5-5.1) mmol/L Glucose 67 L (74-99) mg/dL POC Glucose (mg/dL) 50 L (70-110) mg/dL Calcium 8.2 L (8.4-10.2) mg/dL Total Protein 5.0 L (6.3-8.2) g/dL Albumin 2.4 L (3.5-5.0) g/dL 03/18/24 Range/Units 07:32 RBC (3.80-5.40) m/uL MCV (80.0-100.0) fL RDW (11.5-15.5) % Macrocytosis Sodium (137-145) mmol/L Potassium (3.5-5.1) mmol/L Glucose (74-99) mg/dL POC Glucose (mg/dL) 129 H (70-110) mg/dL Calcium (8.4-10.2) mg/dL Total Protein (6.3-8.2) g/dL Albumin (3.5-5.0) g/dL Assessment and Plan Assessment: Impression: Acute submassive bilateral pulmonary emboli, with CT evidence of right-sided heart strain. Status post aspiration thrombectomy, postoperative day #1 Bilateral deep vein thrombosis, most likely triggered by a long car ride. Although the possibility of underlying hypercoagulable state is not entirely ruled out. And that needs to be addressed on outpatient basis. Acute hypoxemic respiratory failure, secondary to above, resolved Recent prolonged immobilization, i.e., prolonged car ride Hypokalemia History of hypertension History of GERD History of gastric ulcer and gastritis History of lumbar surgery, done at outside facility March, Recommendation: Continue present supportive care measures Continue Eliquis as per protocol Transfer patient out of the ICU to a monitored bed and selective Could even consider discharge planning if cleared by other consultants. Will continue to follow-up Time with Patient: Less than 30
--- NOTE | 2024-03-18 13:37 | CDI ---
Documentation Clarification Form Date: 03/18/2024 From: Amirah Lomax RN CCDS Phone: [phone] Admit Date: 03/16/2024 07:33:00 PM Patient Name: Gillian Paz Visit Number: [id number] Discharge Date: ATTENTION: The Clinical Documentation Specialists (CDI) and [facility] Coding Staff appreciate your assistance in clarifying documentation. Please respond to the clarification below the line at the bottom and electronically sign. The CDI & [facility] Coding staff will review the response and follow-up if needed. Please note: Queries are made part of the Legal Health Record. If you have any questions, please contact the author of this message via ITS. Doctor/Provider: Robert Aviles MD: Right heart strain is documented in the Cardiology consult 03/17 and in subsequent notes. Additional clarification regarding the right heart strain is requested. History/Risk Factors: 73-year-old female with a history of chronic VICKEY, HTN, severe spinal stenosis, who presented with weakness, imbalance, multiple falls, fatigue and slight shortness of breath Clinical Indicators: 03/16 Triage VS: 121/93, 97.9, 120, 20, 94% 2 liters nasal cannula 03/17 Cardiology consult, Final Assessment and Plan: "Submassive bilateral pulmonary emboli Bilateral lower extremity DVT. Elevated troponin, secondary to right heart strain" 03/17 Pulmonology consult, Assessment and Plan: Acute submassive bilateral pulmonary emboli, with CT evidence of right sided heart strain." 03/16 BNP: [id number] 03/17 Echo: EF: 55%, Right Ventricle Right ventricular dilatation. Akinetic right ventricular free wall. Mild pulmonary hypertension. RV strain noted, TAPSE 13 mm, S' 5 cm/sec." 03/18 ECHO: "EF: 55-60%, Right Ventricle, Severe right ventricular dilatation. Reduced right ventricular global systolic function. Mild pulmonary hypertension. TAPSE 10 mm." 03/16 CTA Chest, Impression: "1. Bilateral pulmonary emboli along with a saddle embolus moderate to severe scattered burden, Right heart strain. 2.Some interstitial fibrosis at the lung bases. Pulmonary arterial hypertension. Coronary artery calcifications." 03/17 Pulmonary artery thrombectomy using INARI Treatment: Consult Cardiology, Consult Pulmonology Heparin 4862.8units IV once 03/16 Heparin titrate drip 03/16-03/17 Please clarify the acuity and etiology of the Right heart strain, if known: [ ] Acute Cor pulmonale due to pulmonary embolism [ ] Acute Cor pulmonale due to (please specify) [ ] Unable to determine [ ] Other, please specify Please consult radiology regarding the etiology of right heart strain in this patient with bilateral pulmonary emboli with saddle embolus. This is a terminology used in the CT scan report originally which was then returned in the subsequent note Thank you [email or web address]
[2024-03-18 17:47] LABS: Glucose,Whole Blood 113 mg/dL (70-110)
[2024-03-18 20:20] LABS: Glucose,Whole Blood 83 mg/dL (70-110)
--- NOTE | 2024-03-18 20:39 | P.PN ---
Subjective Progress Note Date: 03/18/24 HISTORY OF PRESENT ILLNESS: 73-year-old with active medical history of chronic iron deficiency anemia, hypertension, hyperlipidemia, severe spinal stenosis, degenerative disc disease, obesity post gastric sleeve back in 2009, lumbar spine second5 postrepair surgically back in 2022 which patient still currently having problem with balance and gait and mobility. She called 911 today because of severe symptoms consistent with weakness, imbalance, multiple falls, fatigue, slight shortness of breath she apparently has been seeing her neurosurgeon with surgical intervention had on her back did not work out well she had scheduled the MRI will be done this Saturday at [facility] down in [place]. She also has been complaining slight worsening shortness of breath without cough or wheezes patient had no history of heart disease does not use any oxygen in the past she has been having palpitation mild chest tightness and pressure with significant nausea and GI symptoms. Ended up seen in the emergency department her initial presentation with pulse rate running slightly better. Between 100 and 140 pulse ox slightly bit low require 4 L to keep her pulse ox above 90 percentile with blood pressure under control. Laboratory value at the time with normal WBC hemoglobin hematocrit, sodium and potassium are little bit low troponin was mildly elevated at 0.174 with quite elevated proBNP at 18,400 D- dimer was quite bit elevated 6.30 with negative influenza COVID and RSV. Chest x-ray shows no pulmonary process was found with the D-dimer being elevated in th e going for CTA shows bilateral pulmonary embolism along with a saddle embolism moderate to severe scatter burden right heart strain some interstitial fibrosis at the lung base with pulmonary arterial hypertension and coronary artery calcification. Venous Doppler came back with right lower extremity acute DVT involving the deep femoral vein popliteal vein and upper calf vein, possible more subacute on chronic left lower extremity involving the lower femoral vein along with partial compressibility. EKG showed sinus tachycardia with ST deviated with slight abnormality in the anterolateral leads. Patient was admitted to the hospital on 03/16/2024 in general for severe hypoxia, bilateral pulmonary embolism to be anastomosis both lower extremity, possible non-ST AR, CHF, pulmonary hypertension, electrolyte imbalance. 03/17/2024: Patient resting in the ICU in bed comfortably still have oxygen to keep her pulse ox above 90 percentile and running about 2 L nasal cannula her blood pressure still slightly below does not require any pressor. She is seen pulmonary and seen cardiology and the time with her massive bilateral pulmonary embolism bilateral lower extremity DVT to continue anticoagulation and proceed with EKOS procedure with interventional cardiology for thrombectomy. Blood sugars running in the low 100, hemoglobin remained stable at 15.0 with no anemia electrolyte balance has been normal UA was negative as well. 03/18/2024: Patient remain in the ICU and vitals are more stable today with blood pressure 112/82, blood sugar still running in the very low 100s. She ended up having late yesterday successful aspiration thrombectomy from the right and the left pulmonary artery with significant reduction of pulmonary pressure and selective bilateral pulmonary artery angiography done to right sided heart cath. As an access for the right common femoral vein. Following procedure patient has been quite well. Probably waiting to obtain another echocardiogram the next few days to see if there is any strangulation of the right ventricle and any sign of complication related to the pulmonary embolism. Meanwhile hopefully today if patient is more stable can transfer out of the ICU to initiate PT and OT. Her hypoxic complaint and concern is much better today still dealing with the venous thrombosis not clear whether we have to ask vascular to look into it for any intervention can be done. REVIEW OF SYSTEMS: CONSTITUTIONAL: Well-developed no acute respiratory distress. EYES: No icterus sclerae, no conjunctivitis. EARS, NOSE, MOUTH, THROAT, and FACE: No sore throat, lymphadenopathy, carotid bruits or deformity. RESPIRATORY: Positive shortness of breath cough or wheezes. CARDIOVASCULAR: Positive PND orthopnea palpitation no angina. GASTROINTESTINAL: No Abd pain, Nausea or vomiting, no Diarrhea or constipation, No GI Bleed, no distention or masses. GENITOURINARY: Negative for Hematuria or UTI, no kidney stones. INTEGUMENT/BREAST: Negative for any muscular injury with mild osteoarthritis.. HEMATOLOGIC/LYMPHATIC: Negative for bleed or purpura. MUSCULOSKELTAL: Generalized arthralgia and myalgia. NEURLOGICAL: No LOC, Sz or syncope, blurred vision dizziness or abnormality.. Significant lower extremity weakness. BEHAVIORAL/PSYCH: Negative. ENDOCRINE: Negative. PHYSICAL EXAMINATION: General Appearance: Alert, cooperative, no distress, appears stated age. Neck HEENT: Supple, no lymphadenopathy, no thyroid enlargement, no carotid bruits. Lungs: Decreased breath sound bilaterally with fine rhonchi positive mild expiratory wheezes with slight crackles in the base. Chest Wall: Decreased expansion with deep inspiration no tenderness and no deformity was found on exam, no costochondral pain or discomfort. Heart: Regular rate and rhythm, S1, S2 positive tachycardia, normal, no murmur, rub or gallop. Back: Symmetric, no curvature, ROM normal, no CVA tenderness. Abdomen: Soft, non-tender, bowel sounds active all four quadrants, no masses, no organomegaly. Extremities: Slight edema bilaterally with decreased pulse dorsalis pedis Pulses: 2+ and symmetric. Skin: Skin color, texture, tugor normal, no rashes or lesions. Neurologic: Alert oriented x3 cranial nerves II through XII intact, positive generalized weakness with abnormal balance and gait. ASSESSMENT AND PLAN: _Significant hypoxia and mild respiratory failure: Secondary to bilateral pulmonary embolism has improved so far specially with the pulmonary artery embolization. _Bilateral pulmonary embolism she was Started on heparin drip per PE and DVT protocol, end up going for EKOS procedure yesterday successfully with cardiology will continue anticoagulation today and prepare probably for switching tomorrow to oral anticoagulation with Eliquis. _Bilateral DVT of the lower extremity with acute on the right subacute on the left: Remain on IV anticoagulation will consult vascular to see if there is any need for any intervention on the lower extremity DVT. _Possible non-ST AR with elevated troponin and slight change in EKG trend and pattern, this is most likely type II myocardial infarction with possibility caused by pulmonary embolism. _Severe abnormal gait balance: Remain secondary to severe spinal stenosis following back surgery still having severe problems with balance and gait. _Severe dizziness with abnormal balance and gait: Remain secondary to vertigo recently was treated with continue not to do well with balance and gait. _Hypertension: Remain on Dyazide which seem to control blood pressure well lately. _Electrolyte imbalance with mild hyponatremia: Continue fluid restriction watch sodium on daily basis. _Severe pulmonary hypertension: Again patient will be on diuretics along with calcium channel milad and possibly nitrate eventually need to go back to see 1 of pulmonary hypertension clinician. _Post gastric sleeve in the past with over 100 pounds weight loss has done better with the slight complication related to aggressive weight loss. _Mild overflow incontinence: Remain on Myrbetriq 25 mg a day which seems to do better with current medication. _Severe GERD/GI prophylaxis: Patient will be on pantoprazole. Discussion: Patient probably remain in ICU for part of the day today may be azucena winston out of ICU today initiate physical therapy consult vascular and initiate oral anticoagulation by tomorrow. Objective - Vital Signs Vital signs: Vital Signs Temp 98.4 F 03/18/24 00:00 Pulse 83 03/18/24 03:00 Resp 18 03/18/24 03:00 BP 112/82 03/18/24 03:00 Pulse Ox 97 03/18/24 02:00 FiO2 Intake & Output 03/17/24 03/17/24 03/18/24 06:59 18:59 06:59 Intake Total 73.305 4616.161 1544 Output Total 300 100 Balance 73.305 695.176 9684 Weight 60.781 kg 68.6 kg Intake: IV 520 375 0.9 20 Dextrose 5%-0.9% NaCl 1, 375 000 ml @ 75 mls/hr IV . [id number] [facility] Rx#:[id number] Intake, IV Titration 73.305 442.505 Amount Dextrose 5%-0.9% NaCl 1, 150 000 ml @ 75 mls/hr IV . [id number] [facility] Rx#:[id number] Heparin Sod,Pork in 0.45% 73.305 67.505 NaCl 25,000 unit In 0.45 % NaCl 1 250ml.bag @ 18 UNITS/KG/HR 10.941 mls/hr IV .[id number] [facility] Rx#: [id number] Sodium Chloride 0.9% 1, 225 000 ml In Empty Bag 1 bag @ 75 mls/hr IV .[id number] [facility] Rx#:[id number] Oral 200 777 Output: Urine 300 100 Other: Voiding Method External Catheter - Labs CBC & Chem 7: 03/17/24 10:17 03/17/24 10:17 Labs: Abnormal Lab Results - Last 24 Hours (Table) 03/17/24 03/17/24 03/17/24 Range/Units 07:38 08:04 10:17 Hct 47.6 H (34.0-46.0) % MCV 106.9 H (80.0-100.0) fL RDW 18.8 H (11.5-15.5) % Macrocytosis Marked A APTT (22.0-30.0) sec Sodium (137-145) mmol/L POC Glucose (mg/dL) 58 L 263 H (70-110) mg/dL AST (14-36) U/L Alkaline Phosphatase (38-126) U/L Total Protein (6.3-8.2) g/dL Albumin (3.5-5.0) g/dL 03/17/24 03/17/24 03/17/24 Range/Units 10:17 10:17 16:36 Hct (34.0-46.0) % MCV (80.0-100.0) fL RDW (11.5-15.5) % Macrocytosis APTT 54.6 H (22.0-30.0) sec Sodium 134 L (137-145) mmol/L POC Glucose (mg/dL) 63 L (70-110) mg/dL AST 38 H (14-36) U/L Alkaline Phosphatase 128 H (38-126) U/L Total Protein 6.2 L (6.3-8.2) g/dL Albumin 3.1 L (3.5-5.0) g/dL 03/17/24 03/17/24 Range/Units 17:42 20:03 Hct (34.0-46.0) % MCV (80.0-100.0) fL RDW (11.5-15.5) % Macrocytosis APTT (22.0-30.0) sec Sodium (137-145) mmol/L POC Glucose (mg/dL) 119 H 122 H (70-110) mg/dL AST (14-36) U/L Alkaline Phosphatase (38-126) U/L Total Protein (6.3-8.2) g/dL Albumin (3.5-5.0) g/dL
[2024-03-18 20:50] LABS: Glucose,Whole Blood 73 mg/dL (70-110)
[2024-03-19 06:11] LABS: Glucose,Whole Blood 83 mg/dL (70-110)
--- NOTE | 2024-03-19 08:28 | P.PN ---
Subjective Progress Note Date: 03/19/24 HISTORY OF PRESENT ILLNESS: 73-year-old with active medical history of chronic iron deficiency anemia, hypertension, hyperlipidemia, severe spinal stenosis, degenerative disc disease, obesity post gastric sleeve back in 2009, lumbar spine second5 postrepair surgically back in 2022 which patient still currently having problem with balance and gait and mobility. She called 911 today because of severe symptoms consistent with weakness, imbalance, multiple falls, fatigue, slight shortness of breath she apparently has been seeing her neurosurgeon with surgical intervention had on her back did not work out well she had scheduled the MRI will be done this Saturday at [facility] down in [place]. She also has been complaining slight worsening shortness of breath without cough or wheezes patient had no history of heart disease does not use any oxygen in the past she has been having palpitation mild chest tightness and pressure with significant nausea and GI symptoms. Ended up seen in the emergency department her initial presentation with pulse rate running slightly better. Between 100 and 140 pulse ox slightly bit low require 4 L to keep her pulse ox above 90 percentile with blood pressure under control. Laboratory value at the time with normal WBC hemoglobin hematocrit, sodium and potassium are little bit low troponin was mildly elevated at 0.174 with quite elevated proBNP at 18,400 D- dimer was quite bit elevated 6.30 with negative influenza COVID and RSV. Chest x-ray shows no pulmonary process was found with the D-dimer being elevated in th e going for CTA shows bilateral pulmonary embolism along with a saddle embolism moderate to severe scatter burden right heart strain some interstitial fibrosis at the lung base with pulmonary arterial hypertension and coronary artery calcification. Venous Doppler came back with right lower extremity acute DVT involving the deep femoral vein popliteal vein and upper calf vein, possible more subacute on chronic left lower extremity involving the lower femoral vein along with partial compressibility. EKG showed sinus tachycardia with ST deviated with slight abnormality in the anterolateral leads. Patient was admitted to the hospital on 03/16/2024 in general for severe hypoxia, bilateral pulmonary embolism to be anastomosis both lower extremity, possible non-ST IA, CHF, pulmonary hypertension, electrolyte imbalance. 03/17/2024: Patient resting in the ICU in bed comfortably still have oxygen to keep her pulse ox above 90 percentile and running about 2 L nasal cannula her blood pressure still slightly below does not require any pressor. She is seen pulmonary and seen cardiology and the time with her massive bilateral pulmonary embolism bilateral lower extremity DVT to continue anticoagulation and proceed with EKOS procedure with interventional cardiology for thrombectomy. Blood sugars running in the low 100, hemoglobin remained stable at 15.0 with no anemia electrolyte balance has been normal UA was negative as well. 03/18/2024: Patient remain in the ICU and vitals are more stable today with blood pressure 112/82, blood sugar still running in the very low 100s. She ended up having late yesterday successful aspiration thrombectomy from the right and the left pulmonary artery with significant reduction of pulmonary pressure and selective bilateral pulmonary artery angiography done to right sided heart cath. As an access for the right common femoral vein. Following procedure patient has been quite well. Probably waiting to obtain another echocardiogram the next few days to see if there is any strangulation of the right ventricle and any sign of complication related to the pulmonary embolism. Meanwhile hopefully today if patient is more stable can transfer out of the ICU to initiate PT and OT. Her hypoxic complaint and concern is much better today still dealing with the venous thrombosis not clear whether we have to ask vascular to look into it for any intervention can be done. 03/19/2024: Patient has done very well with transfer out of ICU, and that seen vascular for possible thrombectomy from DVT of the lower extremity which the evaluation shows no need for any thrombectomy that hide and the size of the DVT are settled. Following the thrombectomy to her pulmonary embolism patient has been stable and doing well. Patient seen cardiology again in follow-up decide to repeat echocardiogram to evaluate the right ventricular strain while continue anticoagulation. Also patient initiate PT OT and probably expectation for discharge to rehab or subacute rehab when she is ready in the next 24 to 48 hours. REVIEW OF SYSTEMS: CONSTITUTIONAL: Well-developed no acute respiratory distress. EYES: No icterus sclerae, no conjunctivitis. EARS, NOSE, MOUTH, THROAT, and FACE: No sore throat, lymphadenopathy, carotid bruits or deformity. RESPIRATORY: Positive shortness of breath cough or wheezes. CARDIOVASCULAR: Positive PND orthopnea palpitation no angina. GASTROINTESTINAL: No Abd pain, Nausea or vomiting, no Diarrhea or constipation, No GI Bleed, no distention or masses. GENITOURINARY: Negative for Hematuria or UTI, no kidney stones. INTEGUMENT/BREAST: Negative for any muscular injury with mild osteoarthritis.. HEMATOLOGIC/LYMPHATIC: Negative for bleed or purpura. MUSCULOSKELTAL: Generalized arthralgia and myalgia. NEURLOGICAL: No LOC, Sz or syncope, blurred vision dizziness or abnormality.. Significant lower extremity weakness. BEHAVIORAL/PSYCH: Negative. ENDOCRINE: Negative. PHYSICAL EXAMINATION: General Appearance: Alert, cooperative, no distress, appears stated age. Neck HEENT: Supple, no lymphadenopathy, no thyroid enlargement, no carotid bruits. Lungs: Decreased breath sound bilaterally with fine rhonchi positive mild expiratory wheezes with slight crackles in the base. Chest Wall: Decreased expansion with deep inspiration no tenderness and no deformity was found on exam, no costochondral pain or discomfort. Heart: Regular rate and rhythm, S1, S2 positive tachycardia, normal, no murmur, rub or gallop. Back: Symmetric, no curvature, ROM normal, no CVA tenderness. Abdomen: Soft, non-tender, bowel sounds active all four quadrants, no masses, no organomegaly. Extremities: Slight edema bilaterally with decreased pulse dorsalis pedis Pulses: 2+ and symmetric. Skin: Skin color, texture, tugor normal, no rashes or lesions. Neurologic: Alert oriented x3 cranial nerves II through XII intact, positive generalized weakness with abnormal balance and gait. ASSESSMENT AND PLAN: _Significant hypoxia and mild respiratory failure: Secondary to bilateral pulmonary embolism has improved so far specially with the pulmonary artery embolization. _Bilateral pulmonary embolism she was Started on heparin drip per PE and DVT protocol, end up going for EKOS procedure yesterday successfully with cardiology will continue anticoagulation today and prepare probably for switching tomorrow to oral anticoagulation with Eliquis. _Bilateral DVT of the lower extremity with acute on the right subacute on the left: Will switch today to oral Eliquis 10 mg twice a day for 2 weeks then 5 mg twice a day thereafter. _Possible non-ST IA with elevated troponin and slight change in EKG trend and pattern, this is most likely type II myocardial infarction with possibility caused by pulmonary embolism. _Severe abnormal gait balance: Remain secondary to severe spinal stenosis following back surgery still having severe problems with balance and gait. _Severe dizziness with abnormal balance and gait: Remain secondary to vertigo recently was treated with continue not to do well with balance and gait. _Hypertension: Remain on Dyazide which seem to control blood pressure well lately. _Electrolyte imbalance with mild hyponatremia: Continue fluid restriction watch sodium on daily basis. _Severe pulmonary hypertension: With the current of PE initially the pressure was quite high on echocardiogram due to strain on the right ventricle, echocardiogram will be repeated again by cardiology watching the pressure. _Post gastric sleeve in the past with over 100 pounds weight loss has done better with the slight complication related to aggressive weight loss. _Mild overflow incontinence: Remain on Myrbetriq 25 mg a day which seems to do better with current medication. _Severe GERD/GI prophylaxis: Patient will be on pantoprazole. Discussion: Patient had her thrombectomy of the pulmonary artery has done very well anticoagulation is continue was seen and evaluated by vascular no need for any thrombectomy of the DVT, patient was transfer out of the ICU will continue PT OT and probably expectation for discharge to subacute rehab tomorrow. Objective - Vital Signs Vital signs: Vital Signs Temp 98.0 F 03/19/24 04:00 Pulse 79 03/19/24 04:00 Resp 18 03/19/24 04:00 BP 111/72 03/19/24 04:00 Pulse Ox 97 03/19/24 04:00 FiO2 Intake & Output 03/18/24 03/18/24 03/19/24 06:59 18:59 06:59 Intake Total 1152 255 75 Output Total 200 200 150 Balance 952 55 -75 Weight 68.6 kg 68.6 kg Intake: IV 375 75 75 Dextrose 5%-0.9% NaCl 1, 375 75 75 000 ml @ 75 mls/hr IV . [id number] [facility] Rx#:[id number] Oral 777 180 Output: Urine 200 200 150 Other: Voiding Method External Catheter External Catheter External Catheter # Voids 1 - Labs CBC & Chem 7: 03/18/24 06:27 03/18/24 06:27 Labs: Abnormal Lab Results - Last 24 Hours (Table) 03/18/24 03/18/24 03/18/24 Range/Units 06:27 06:27 06:41 RBC 3.55 L (3.80-5.40) m/uL MCV 105.9 H (80.0-100.0) fL RDW 18.9 H (11.5-15.5) % Macrocytosis Marked A Sodium 134 L (137-145) mmol/L Potassium 3.2 L (3.5-5.1) mmol/L Glucose 67 L (74-99) mg/dL POC Glucose (mg/dL) 50 L (70-110) mg/dL Calcium 8.2 L (8.4-10.2) mg/dL Total Protein 5.0 L (6.3-8.2) g/dL Albumin 2.4 L (3.5-5.0) g/dL 03/18/24 03/18/24 Range/Units 07:32 17:46 RBC (3.80-5.40) m/uL MCV (80.0-100.0) fL RDW (11.5-15.5) % Macrocytosis Sodium (137-145) mmol/L Potassium (3.5-5.1) mmol/L Glucose (74-99) mg/dL POC Glucose (mg/dL) 129 H 113 H (70-110) mg/dL Calcium (8.4-10.2) mg/dL Total Protein (6.3-8.2) g/dL Albumin (3.5-5.0) g/dL
[2024-03-19 11:20] LABS: Magnesium 1.5 mg/dL (1.6-2.3); Potassium 4.4 mmol/L (3.5-5.1)
[2024-03-19] MEDS ORDERED: Magnesium Replacement Protocol 1 EACH MISC MISCELLANE PRN (11:22)
[2024-03-19 11:52] LABS: Glucose,Whole Blood 77 mg/dL (70-110)
--- NOTE | 2024-03-19 12:06 | CDI ---
Documentation Clarification Form Date: 03/19/4024 From: Amirha Lomax RN CCDS Phone: [phone] Admit Date: 03/16/2024 07:33:00 PM Patient Name: Gillian Paz Visit Number: [id number] Discharge Date: ATTENTION: The Clinical Documentation Specialists (CDI) and [facility] Coding Staff appreciate your assistance in clarifying documentation. Please respond to the clarification below the line at the bottom and electronically sign. The CDI & [facility] Coding staff will review the response and follow-up if needed. Please note: Queries are made part of the Legal Health Record. If you have any questions, please contact the author of this message via ITS. Doctor/Provider: Dank Flores MD: Right heart strain is documented in the Cardiology consult 03/17 and in subsequent notes. Additional clarification regarding the right heart strain is requested. History/Risk Factors: 73-year-old female with a history of chronic VICKEY, HTN, severe spinal stenosis, who presented with weakness, imbalance, multiple falls, fatigue and slight shortness of breath Clinical Indicators: 03/16 Triage VS: 121/93, 97.9, 120, 20, 94% 2 liters nasal cannula 03/17 Cardiology consult, Final Assessment and Plan: "Submassive bilateral pulmonary emboli Bilateral lower extremity DVT. Elevated troponin, secondary to right heart strain" 03/17 Pulmonology consult, Assessment and Plan: Acute submassive bilateral pulmonary emboli, with CT evidence of right sided heart strain." 03/16 BNP: [id number] 03/17 Echo: EF: 55%, Right Ventricle Right ventricular dilatation. Akinetic right ventricular free wall. Mild pulmonary hypertension. RV strain noted, TAPSE 13 mm, S' 5 cm/sec." 03/18 ECHO: "EF: 55-60%, Right Ventricle, Severe right ventricular dilatation. Reduced right ventricular global systolic function. Mild pulmonary hypertension. TAPSE 10 mm." 03/16 CTA Chest, Impression: "1. Bilateral pulmonary emboli along with a saddle embolus moderate to severe scattered burden, Right heart strain. 2.Some interstitial fibrosis at the lung bases. Pulmonary arterial hypertension. Coronary artery calcifications." 03/17 Pulmonary artery thrombectomy using INARI Treatment: Consult Cardiology, Consult Pulmonology Heparin 4862.8units IV once 03/16 Heparin titrate drip 03/16-03/17 Please clarify the acuity and etiology of Cor pulmonale, if known: [ ] Acute Cor pulmonale due to pulmonary embolism [ ] Acute Cor pulmonale due to (please specify) [ ] Unable to determine [ ] Other, please specify MTDD
--- NOTE | 2024-03-19 12:33 | P.PN ---
Subjective Progress Note Date: 03/19/24 Patient is a 73-year-old female with past medical history significant for peptic ulcer disease, hypertension. Of note, patient is currently having problems with balance and gait. She ambulates with a cane. She is being evaluated by a neurosurgeon for possible surgical intervention. She does have history of lumbar surgery done at [facility] in March,. More recently, patient is having severe exertional dyspnea and fatigue. Denies any chest pain. Denies any cough. Denies any fevers. No lightheadedness or syncopal events. She has chest tightness for 1 week. Presented the emergency department yesterday afternoon. D-dimer was elevated at 6.3. Chest CT angio protocol performed. She was found to have bilateral pulmonary emboli along with a saddle pulmonary embolus. Moderate to severe scattered burden. CT evidence of right- sided heart strain. Also, mild interstitial fibrosis at the bases. 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 I am evaluating this patient in the emergency department. She is currently on 2 L nasal cannula. SpO2 97%. Nontachypneic. Blood pressure is normotensive. Heart rate is 98 bpm. She is not on any vasopressors at the moment. She appears comfortable and not in any distress. On further questioning, she did have a long car ride to [place] last week. She did not make many stops along the way. She has no personal or familial history of DVT/PE. No recent traumatic events or surgical procedures. No recent hospitalizations. CBC: WBC count 8.9, hemoglobin 14.6, hematocrit 44.7, platelets 286. CMP: Sodium 132, potassium 3.3, chloride 99, serum bicarb 27, BUN 17, creatinine 0.94, glucose 109. Troponin 0.147 and 0.19 respectively. NT proBNP elevated at 18,400. EKG done on arrival: Sinus tachycardia, rate 116 bpm, diffuse ST/T wave abnormalities. High intensity heparin infusion continues per protocol. A transthoracic echocardiogram is pending. Cardiovascular surgeon is aware of the case, and patient is potential candidate for EKOS procedure or mechanical thrombectomy. She will be admitted to the intensive care unit once bed available. Patient seen today on 03/18/2024, she is now status post successful aspiration thrombectomy of right and left pulmonary arteries using inari device, patient had a significant clot burden and there was successful aspiration. Patient remains in the ICU, doing well, she is now on oral anticoagulation therapy/Eliquis. Hardly any pulmonary symptoms, no cough no wheezing no shortness of breath, patient had an initial presentation of profound weakness when she had her pulmonary embolism discomfort. It may have been triggered by a long drive that she had an car from [place] to [place] back and forth patient also had bilateral lower extremity DVTs associated with saddle pulmonary embolism and right heart strain.Labs today showed relatively normal CBC normal electrolytes except for low potassium of 3.2 otherwise labs are normal. The patient is seen today March 19, 2024 in follow-up on the selective care unit. She is currently resting comfortably in bed. Awake and alert in no acute distress. Maintaining O2 saturations in the 90s on room air. She denies any chest pain, shortness of breath, cough or congestion. No hemoptysis. She has been transitioned to Eliquis. She remains on D5 and half-normal saline at 75 mL/h. Potassium 4.4. Magnesium 1.5. Glucose 77. Magnesium being replaced. Objective - Vital Signs Vital signs: Vital Signs Temp 98.0 F 03/19/24 08:30 Pulse 80 03/19/24 08:30 Resp 18 03/19/24 08:30 BP 126/88 03/19/24 08:30 Pulse Ox 97 03/19/24 08:30 FiO2 Intake & Output 03/18/24 03/19/24 03/19/24 18:59 06:59 18:59 Intake Total 255 75 150 Output Total 200 150 Balance 55 -75 150 Weight 68.6 kg 135 kg Intake: IV 75 75 Dextrose 5%-0.9% NaCl 1, 75 75 000 ml @ 75 mls/hr IV . [id number] [facility] Rx#:[id number] Oral 180 150 Output: Urine 200 150 Other: Voiding Method External Catheter External Catheter External Catheter # Voids 1 - Exam GENERAL EXAM: Alert, active, 73-year-old female, on room air, comfortable in no apparent distress. HEAD: Normocephalic. EYES: Normal reaction of pupils, equal size. NOSE: Clear with pink turbinates. THROAT: No erythema or exudates. NECK: No masses, no JVD. CHEST: No chest wall deformity. LUNGS: Equal air entry with no crackles, wheeze, rhonchi or dullness. CVS: S1 and S2 normal with no audible murmur, regular rhythm. ABDOMEN: No hepatosplenomegaly, normal bowel sounds, no guarding or rigidity. SPINE: No scoliosis or deformity SKIN: No rashes CENTRAL NERVOUS SYSTEM: No focal deficits, tone is normal in all 4 extremities. EXTREMITIES: There is no peripheral edema. No clubbing, no cyanosis. Peripheral pulses are intact. - Labs CBC & Chem 7: 03/18/24 06:27 03/19/24 10:53 Labs: Abnormal Lab Results - Last 24 Hours (Table) 03/18/24 03/19/24 Range/Units 17:46 10:53 POC Glucose (mg/dL) 113 H (70-110) mg/dL Magnesium 1.5 L (1.6-2.3) mg/dL Assessment and Plan Assessment: Acute submassive bilateral pulmonary emboli, with CT evidence of right-sided heart strain. Status post aspiration thrombectomy, postoperative day #2 Bilateral deep vein thrombosis, most likely triggered by a long car ride. Although the possibility of underlying hypercoagulable state is not entirely ruled out and needs to be addressed on outpatient basis Acute hypoxemic respiratory failure, secondary to above, resolved Acute cor pulmonale due to pulmonary embolism Recent prolonged immobilization, i.e., prolonged car ride Hypokalemia, improved Hypomagnesemia, being replaced History of hypertension History of GERD History of gastric ulcer and gastritis History of lumbar surgery, done at outside facility March, Plan: The patient was seen and evaluated Labs and medications reviewed Stable and on room air Transitioned to Eliqu Plan may be for rehab post discharge I have personally seen and examined the patient, performed the documentation and the assessment and plan as written. Number of minutes spent on the visit: 10 Dictation was produced using [employer] dictation software. Please excuse any grammatical, word or spelling errors.
[2024-03-19] MEDS: MAGNESIUM SULFATE-D5W PMX 1 GM in DEXTROSE/WATER 1 100ML.BAG IVPB SCH (13:19)
--- NOTE | 2024-03-19 14:20 | P.PN ---
Subjective Progress Note Date: 03/19/24 The patient is a 73-year-old female who is currently admitted to the hospital with bilateral lower extremity DVT and acute pulmonary embolism. Patient underwent successful aspiration thrombectomy yesterday with Dr. Patricia. Patient was thereafter started on Eliquis 10 mg twice daily. Patient interviewed and examined resting comfortably in bed. Patient has been transferred from ICU to the cardiac stepdown unit. She denies having any chest pain, shortness of breath. Limited echocardiogram reveals enlarged right ventricle with global decrease in contractility compared to yesterday the RV appears to be the same. LV function is normal. PA pressures are about 45 mmHg. GENERAL: Well-appearing, well-nourished and in no acute distress. NECK: Supple without JVD or thyromegaly. LUNGS: Breath sounds clear to auscultation bilaterally. Respiration equal and unlabored. No wheezes, rales or rhonchi. HEART: Regular rate and rhythm without murmurs, rubs or gallops. S1 and S2 heard. EXTREMITIES: No edema. No clubbing or cyanosis. Peripheral pulses intact and strong. No hematoma in right groin. TELEMETRY: Sinus rhythm overnight LABS: WBC 5.9, hemoglobin 12.2, hematocrit 37.5, platelet 319, sodium 134, potassium 3.2, BUN 10, creatinine 0.88, AST 25, ALT 14 IMPRESSION: Submassive bilateral pulmonary emboli Status post aspiration thrombectomy Bilateral lower extremity DVT Elevated troponin, secondary to right heart strain PLAN: Continue anticoagulation on Eliquis VTE protocol Start patient on Lipitor 20 mg at bedtime and aspirin 81 mg daily versus 325 mg Lipid panel ordered Further recommendations to be based upon clinical course I am dictating on behalf of Dr Robert Aviles's history/physical and assessment/plan. Objective - Vital Signs Vital signs: Vital Signs Temp 98.0 F 03/19/24 04:00 Pulse 79 03/19/24 04:00 Resp 18 03/19/24 04:00 BP 111/72 03/19/24 04:00 Pulse Ox 97 03/19/24 04:00 FiO2 Intake & Output 03/18/24 03/19/24 03/19/24 18:59 06:59 18:59 Intake Total 255 75 150 Output Total 200 150 Balance 55 -75 150 Weight 68.6 kg 135 kg Intake: IV 75 75 Dextrose 5%-0.9% NaCl 1, 75 75 000 ml @ 75 mls/hr IV . [id number] [facility] Rx#:[id number] Oral 180 150 Output: Urine 200 150 Other: Voiding Method External Catheter External Catheter # Voids 1 - Labs CBC & Chem 7: 03/18/24 06:27 03/19/24 10:53 Labs: Abnormal Lab Results - Last 24 Hours (Table) 03/18/24 Range/Units 17:46 POC Glucose (mg/dL) 113 H (70-110) mg/dL
[2024-03-19 16:46] LABS: Chol/HDL Ratio 3.35 Ratio; LDL Cholesterol,Calculated 67.7 mg/dL (0.0-131.0)
[2024-03-19 17:11] LABS: Glucose,Whole Blood 76 mg/dL (70-110)
[2024-03-19] MEDS: ATORVASTATIN 20 MG TAB PO SCH (20:12)
[2024-03-19 20:55] LABS: Glucose,Whole Blood 103 mg/dL (70-110)
[2024-03-20 06:23] LABS: Glucose,Whole Blood 92 mg/dL (70-110)
[2024-03-20] MEDS: ASPIRIN 81 MG PO SCH (09:32)
[2024-03-20 10:09] VITALS: BP 140/80; PULSE 91; RESP 18; TEMP 97.8
--- NOTE | 2024-03-20 10:27 | P.PN ---
Subjective Progress Note Date: 03/20/24 The patient is a 73-year-old female who is currently admitted to the hospital with bilateral lower extremity DVT and acute pulmonary embolism. Patient underwent successful aspiration thrombectomy yesterday with Dr. Patricia. Patient was thereafter started on Eliquis 10 mg twice daily. Patient interviewed and examined resting comfortably in bed. Patient has been transferred from ICU to the cardiac stepdown unit. She denies having any chest pain, shortness of breath. Limited echocardiogram reveals enlarged right ventricle with global decrease in contractility compared to yesterday the RV appears to be the same. LV function is normal. PA pressures are about 45 mmHg. 03/20 Patient denies any new concerns today. She is scheduled for discharge with plan to follow-up with Dr. Aviles in 2 weeks. Blood pressure 140/80, heart rate is in the 90s, pulse ox 95% on room air. Patient is maintained on the Eliquis VTE protocol. Triglycerides 89, cholesterol 122, LDL 67, HDL 36. GENERAL: Well-appearing, well-nourished and in no acute distress. NECK: Supple without JVD or thyromegaly. LUNGS: Breath sounds clear to auscultation bilaterally. Respiration equal and unlabored. No wheezes, rales or rhonchi. HEART: Regular rate and rhythm without murmurs, rubs or gallops. S1 and S2 heard. EXTREMITIES: No edema. No clubbing or cyanosis. Peripheral pulses intact and strong. No hematoma in right groin. TELEMETRY: Sinus rhythm overnight LABS: WBC 5.9, hemoglobin 12.2, hematocrit 37.5, platelet 319, sodium 134, potassium 3.2, BUN 10, creatinine 0.88, AST 25, ALT 14 IMPRESSION: Submassive bilateral pulmonary emboli Status post aspiration thrombectomy Bilateral lower extremity DVT Elevated troponin, secondary to right heart strain PLAN: Continue anticoagulation on Eliquis VTE protocol Continue patient on Lipitor 20 mg at bedtime and aspirin 81 mg daily versus 325 mg Lipid panel ordered Further recommendations to be based upon clinical course I am dictating on behalf of Dr Robert Aviles's history/physical and assessment/plan. Objective - Vital Signs Vital signs: Vital Signs Temp 97.7 F 03/19/24 20:00 Pulse 96 03/20/24 04:09 Resp 16 03/20/24 04:09 BP 142/81 03/20/24 04:09 Pulse Ox 98 03/20/24 04:09 FiO2 Intake & Output 03/19/24 03/20/24 03/20/24 18:59 06:59 18:59 Intake Total 640 236 Output Total 200 250 Balance 640 -200 -14 Weight 61.7 kg Intake: Oral 640 236 Output: Urine 200 250 Other: Voiding Method External Catheter External Catheter - Labs CBC & Chem 7: 03/18/24 06:27 03/19/24 10:53 Labs: Abnormal Lab Results - Last 24 Hours (Table) 03/19/24 Range/Units 10:53 Magnesium 1.5 L (1.6-2.3) mg/dL HDL Cholesterol 36.40 L (40.00-60.00) mg/dL
--- NOTE | 2024-03-20 10:47 | P.DS ---
Providers Date of admission: 03/16/24 19:33 Expected date of discharge: 03/20/24 Attending physician: Kaleb Nicolas Consults: 03/16/24 19:21 Consult Physician Urgent Consulting Provider: Gabe Patricia Consult Reason/Comments: PE Do you want consulting provider notified?: Already Contacted 03/16/24 19:32 Consult Physician Urgent Consulting Provider: Dank Flores Consult Reason/Comments: PE/icu management Do you want consulting provider notified?: Already Contacted 03/16/24 22:25 Consult Physician Routine Consulting Provider: Dank Flores Consult Reason/Comments: Bilateral PE wit Pulmonary HTN Do you want consulting provider notified?: Yes 03/17/24 13:50 Consult Physician Routine Consulting Provider: [facility] Consult Reason/Comments: Post Interventional patient Do you want consulting provider notified?: Already Contacted 03/19/24 11:18 Consult Physician Routine Consulting Provider: Jus Moncada Consult Reason/Comments: Eval for IPR Do you want consulting provider notified?: Yes Primary care physician: Kaleb Nicolas [facility] Hospital Course: Final diagnosis _Significant hypoxia and mild respiratory failure: Secondary to bilateral pulmonary embolism status post pulmonary artery embolization. _Bilateral pulmonary embolism, continued on Eliquis _Bilateral DVT of the lower extremity with acute on the right subacute on the le ft _Possible non-ST HI with elevated troponin and slight change in EKG trend and pattern, this is most likely type II myocardial infarction with possibility caused by pulmonary embolism. _Severe abnormal gait balance: secondary to severe spinal stenosis following back surgery still having severe problems with balance and gait. _Severe dizziness with abnormal balance and gait: Remain secondary to vertigo _Hypertension _Electrolyte imbalance with mild hyponatremia _Severe pulmonary hypertension: With the current of PE initially the pressure was quite high on echocardiogram due to strain on the right ventricle, echocardiogram will be repeated again by cardiology watching the pressure. _Post gastric sleeve in the past with over 100 pounds weight loss has done better with the slight complication related to aggressive weight loss. _Mild overflow incontinence _Severe GERD/GI prophylaxis _Full code Discharge disposition Patient is being discharged in a stable condition with guarded prognosis to [facility]. Patient will follow-up with Dr. Nicolas in the outpatient setting upon discharge. Patient is to continue with Eliquis 10 mg twice daily for 2 weeks and then decrease the dose to 5 mg twice daily thereafter. Follow- up with cardiology outpatient as scheduled. Total time taken is greater than 35 minutes. Hospital course This is a 73-year-old female who was recently admitted with generalized weakness and gait dysfunction having multiple falls along with some slight shortness of breath with significant comorbidities. Patient was evaluated by multiple consults and also was noted to have an elevated D-dimer and underwent CTA showing bilateral pulmonary embolism with a saddle embolism moderate to severe scattered burden with right heart strain and some interstitial fibrosis at the lung base with pulmonary artery hypertension. Patient also underwent Dopplers which came back positive for right lower extremity DVT involving the deep femoral vein popliteal vein and upper calf vein and chronic left lower extremity with subacute on chronic involving the lower femoral vein. Patient was initiated on anticoagulation and has transition to Eliquis. Given the extent patient will continue on Eliquis 10 mg twice daily for 2 weeks and then titrate the dose down to 5 mg twice daily thereafter. Patient has been cleared by consultations and evaluated by physical therapy recommending rehab. Patient is now agreeable and has received insurance authorization and will be going to [facility] on [facility]. Recommend close outpatient follow-up with cardiology as we ll as primary care provider. Patient is status post thrombectomy of the pulmonary artery. Currently no reports of chest pain, shortness of breath, or palpitations. Patient is afebrile. No reports of nausea or vomiting and patient is tolerating diet. Patient will be going to [facility] on [address] [place] today. Guarded prognosis and high risk for readmissions. Physical exam: Gen: This is a 73-year-old female who is awake, alert and oriented, well- developed, elderly appearing HEENT: Head is atraumatic, normocephalic. Pupils equal, round. Sclerae is anicteric. NECK: Supple. No JVD. No lymphadenopathy. No thyromegaly. LUNGS: Diminished breath sounds bilaterally otherwise clear to auscultation. No wheezes or rhonchi. No intercostal retractions. HEART: Regular rate and rhythm. No murmur. ABDOMEN: Soft. Bowel sounds are present. No masses. No tenderness. EXTREMITIES: No pedal edema. No calf tenderness. NEUROLOGICAL: Patient is awake, alert and oriented x3. Cranial nerves 2 through 12 are grossly intact. Diffusely weak Please refer to medication reconciliation sheet for a list of medications. The impression and plan of care has been dictated by Minoo Burch Nurse Pra ctitioner as directed. Dr. Oswaldo MD I have performed a history and examination and MDM of this patient, discussed the same with the dictator, and agree with the dictator's assessment and plan as written ,documented as a scribe. Based on total visit time, I have performed more than 50% of the visit. Patient Condition at Discharge: Stable Plan - Discharge Summary Discharge Rx Participant: No New Discharge Prescriptions: New Aspirin 81 mg PO DAILY tab Mag Hydrox/Al Hydrox/Simeth [Maalox] 30 ml PO Q4HR PRN ml PRN Reason: Heartburn Nitroglycerin Sl Tabs [Nitrostat] 0.4 mg SUBLINGUAL Q5M PRN tab PRN Reason: Chest Pain Zolpidem [Ambien] 5 mg PO HS PRN #2 tab PRN Reason: Insomnia Apixaban [Eliquis] 10 mg PO BID tab Atorvastatin [Lipitor] 20 mg PO HS tab Continue Pantoprazole [Protonix] 40 mg PO DAILY Mirabegron [Myrbetriq] 25 mg PO DAILY Discontinued hydroCHLOROthiazide 12.5 mg PO DAILY Discharge Medication List Mirabegron [Myrbetriq] 25 mg PO DAILY 03/16/24 [History] Pantoprazole [Protonix] 40 mg PO DAILY 03/16/24 [History] Apixaban [Eliquis] 10 mg PO BID tab 03/20/24 [Rx] Aspirin 81 mg PO DAILY tab 03/20/24 [Rx] Atorvastatin [Lipitor] 20 mg PO HS tab 03/20/24 [Rx] Mag Hydrox/Al Hydrox/Simeth [Maalox] 30 ml PO Q4HR PRN ml 03/20/24 [Rx] Nitroglycerin Sl Tabs [Nitrostat] 0.4 mg SUBLINGUAL Q5M PRN tab 03/20/24 [Rx] Zolpidem [Ambien] 5 mg PO HS PRN #2 tab 03/20/24 [Rx] Follow up Appointment(s)/Referral(s): Robert Aviles MD [STAFF PHYSICIAN] - 2 Weeks Kaleb Nicolas MD [Primary Care Provider] - 1-2 days Activity/Diet/Wound Care/Special Instructions: Patient is going to [facility] on the [address] Activity as tolerated Follow-up with cardiology outpatient Continue taking medications as prescribed Continue with Eliquis 10 mg twice daily for the next 6 days and then transition to 5 mg twice daily thereafter Continue heart healthy diet Discharge Disposition: TRANSFER TO SNF/ECF
[2024-03-20 11:16] LABS: Glucose,Whole Blood 74 mg/dL (70-110)
--- NOTE | 2024-03-20 12:28 | P.CONS ---
History of Present Illness - Reason for Consult Consult date: 03/20/24 - History of Present Illness Patient is a 73-year-old female who lives in a single story home with 2 TEJAS. She lives alone. She was using a rollator prior. Therapies reviewed and patient needing min A for transfers and ambulation min A 66 ft RW. Per EMR, she has peptic ulcer disease, hypertension. She presented to the ED with dyspnea. CT angio protocol performed. She was found to have bilateral pulmonary emboli along with a saddle pulmonary embolus. Moderate to severe scattered burden. CT evidence of right-sided heart strain. Also, mild interstitial fibrosis at the bases. 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 She was placed on IV heparin. A transthoracic echocardiogram was done. She underwent thrombectomy of right and left pulmonary emboli. She was started on eliquis. PMR consulted for rehab recs Past Medical History Past Medical History: GERD/Reflux, Hypertension Additional Past Medical History / Comment(s): stomach ulcers x2 in 2015, current anemia History of Any Multi-Drug Resistant Organisms: None Reported Past Surgical History: Back Surgery, Bariatric Surgery, Cholecystectomy, Orthopedic Surgery, Tonsillectomy Additional Past Surgical History / Comment(s): gastric sleeve in 2009, EGD, ORIF right arm. L2-L5 repair 2022. Past Anesthesia/Blood Transfusion Reactions: No Reported Reaction Past Psychological History: No Psychological Hx Reported Smoking Status: Never smoker Past Alcohol Use History: Occasional Past Drug Use History: None Reported - Past Family History Mother Family Medical History: Cancer Additional Family Medical History / Comment(s): breast Medications and Allergies Home Medications Medication Instructions Recorded Confirmed Type Mirabegron [Myrbetriq] 25 mg PO DAILY 03/16/24 03/16/24 History Pantoprazole [Protonix] 40 mg PO DAILY 03/16/24 03/16/24 History Apixaban [Eliquis] 10 mg PO BID tab 03/20/24 Rx Aspirin 81 mg PO DAILY tab 03/20/24 Rx Atorvastatin [Lipitor] 20 mg PO HS tab 03/20/24 Rx Mag Hydrox/Al Hydrox/Simeth 30 ml PO Q4HR PRN ml 03/20/24 Rx [Maalox] Nitroglycerin Sl Tabs [Nitrostat] 0.4 mg SUBLINGUAL Q5M PRN tab 03/20/24 Rx Zolpidem [Ambien] 5 mg PO HS PRN #2 tab 03/20/24 Rx Allergies Allergy/AdvReac Type Severity Reaction Status Date / Time No Known Allergies Allergy Verified 03/16/24 16:07 Physical Exam Vitals: Vital Signs Temp Pulse Resp BP BP Pulse Ox 03/19/24 20:00 97.7 F 89 17 133/85 94 L 03/19/24 18:30 89 17 03/19/24 16:00 98.3 F 85 18 120/80 94 L 03/19/24 14:00 82 18 03/19/24 12:00 82 18 124/86 94 L 03/19/24 08:30 98.0 F 80 18 126/88 97 03/19/24 04:00 98.0 F 79 18 111/72 97 03/19/24 02:00 87 18 03/18/24 23:34 97.7 F 87 18 101/64 98 Intake and Output 03/19/24 03/19/24 03/20/24 14:59 22:59 06:59 Intake Total 490 150 Balance 490 150 Intake: Oral 490 150 Other: Voiding Method External Catheter External Catheter General: No acute distress sitting in chair UE 4/5, LE 4/5 On NC Awake, alert, oriented Psych: calm mood, appropriate affect Results CBC & Chem 7: 03/18/24 06:27 03/19/24 10:53 Labs: Abnormal Lab Results - Last 24 Hours (Table) 03/19/24 Range/Units 10:53 Magnesium 1.5 L (1.6-2.3) mg/dL HDL Cholesterol 36.40 L (40.00-60.00) mg/dL Assessment and Plan Assessment: # Debility secondary to b/l pulmonary emboli s/p thrombectomy Therapies reviewed- patient is needing min A for transfers, bed mobility, ambulation. She requires mod A for LB dressing. Given she lives alone and is below functional baseline, she would benefit and be appropriate for transfer to [facility] for further skilled therapies. Discussed this with the patient. #hypoxia and respiratory failure #Bilateral pulmonary embolism, continued on Eliquis # Bilateral DVT of the lower extremity with acute on the right subacute on the left #gait abnormality, possibly secondary to spinal stenosis- workup to be done outpatient. #Hypertension #Severe pulmonary hypertension Thank you for consulting our services
--- NOTE | 2024-03-20 14:34 | P.PN ---
Subjective Progress Note Date: 03/20/24 Patient is a 73-year-old female with past medical history significant for peptic ulcer disease, hypertension. Of note, patient is currently having problems with balance and gait. She ambulates with a cane. She is being evaluated by a neurosurgeon for possible surgical intervention. She does have history of lumbar surgery done at [facility] in March,. More recently, patient is having severe exertional dyspnea and fatigue. Denies any chest pain. Denies any cough. Denies any fevers. No lightheadedness or syncopal events. She has chest tightness for 1 week. Presented the emergency department yesterday afternoon. D-dimer was elevated at 6.3. Chest CT angio protocol performed. She was found to have bilateral pulmonary emboli along with a saddle pulmonary embolus. Moderate to severe scattered burden. CT evidence of right- sided heart strain. Also, mild interstitial fibrosis at the bases. 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 I am evaluating this patient in the emergency department. She is currently on 2 L nasal cannula. SpO2 97%. Nontachypneic. Blood pressure is normotensive. Heart rate is 98 bpm. She is not on any vasopressors at the moment. She appears comfortable and not in any distress. On further questioning, she did have a long car ride to [place] last week. She did not make many stops along the way. She has no personal or familial history of DVT/PE. No recent traumatic events or surgical procedures. No recent hospitalizations. CBC: WBC count 8.9, hemoglobin 14.6, hematocrit 44.7, platelets 286. CMP: Sodium 132, potassium 3.3, chloride 99, serum bicarb 27, BUN 17, creatinine 0.94, glucose 109. Troponin 0.147 and 0.19 respectively. NT proBNP elevated at 18,400. EKG done on arrival: Sinus tachycardia, rate 116 bpm, diffuse ST/T wave abnormalities. High intensity heparin infusion continues per protocol. A transthoracic echocardiogram is pending. Cardiovascular surgeon is aware of the case, and patient is potential candidate for EKOS procedure or mechanical thrombectomy. She will be admitted to the intensive care unit once bed available. Patient seen today on 03/18/2024, she is now status post successful aspiration thrombectomy of right and left pulmonary arteries using inari device, patient had a significant clot burden and there was successful aspiration. Patient remains in the ICU, doing well, she is now on oral anticoagulation therapy/Eliquis. Hardly any pulmonary symptoms, no cough no wheezing no shortness of breath, patient had an initial presentation of profound weakness when she had her pulmonary embolism discomfort. It may have been triggered by a long drive that she had an car from [place] to [place] back and forth patient also had bilateral lower extremity DVTs associated with saddle pulmonary embolism and right heart strain.Labs today showed relatively normal CBC normal electrolytes except for low potassium of 3.2 otherwise labs are normal. The patient is seen today March 19, 2024 in follow-up on the selective care unit. She is currently resting comfortably in bed. Awake and alert in no acute distress. Maintaining O2 saturations in the 90s on room air. She denies any chest pain, shortness of breath, cough or congestion. No hemoptysis. She has been transitioned to Eliquis. She remains on D5 and half-normal saline at 75 mL/h. Potassium 4.4. Magnesium 1.5. Glucose 77. Magnesium being replaced. The patient is seen today March 20, 2024 in follow-up on the selective care unit. She is currently sitting up in a chair at the bedside. Awake and alert in no acute distress. Maintaining good O2 saturations in the 90s on room air. Glucose 74. She is anticoagulated with Eliquis. Denies any shortness of breath, cough or congestion. No chest discomfort. No hemoptysis. Objective - Vital Signs Vital signs: Vital Signs Temp 97.8 F 03/20/24 08:00 Pulse 91 03/20/24 08:00 Resp 18 03/20/24 08:00 BP 140/80 03/20/24 08:00 Pulse Ox 95 03/20/24 08:00 FiO2 Intake & Output 03/19/24 03/20/24 03/20/24 18:59 06:59 18:59 Intake Total 640 236 Output Total 200 250 Balance 640 -200 -14 Weight 61.7 kg Intake: Oral 640 236 Output: Urine 200 250 Other: Voiding Method External Catheter External Catheter External Catheter - Exam GENERAL EXAM: Alert, 73-year-old female, sitting up in a chair, on room air, comfortable in no apparent distress. HEAD: Normocephalic. EYES: Normal reaction of pupils, equal size. NOSE: Clear with pink turbinates. THROAT: No erythema or exudates. NECK: No masses, no JVD. CHEST: No chest wall deformity. LUNGS: Equal air entry with no crackles, wheeze, rhonchi or dullness. CVS: S1 and S2 normal with no audible murmur, regular rhythm. ABDOMEN: No hepatosplenomegaly, normal bowel sounds, no guarding or rigidity. SPINE: No scoliosis or deformity SKIN: No rashes CENTRAL NERVOUS SYSTEM: No focal deficits, tone is normal in all 4 extremities. EXTREMITIES: There is no peripheral edema. No clubbing, no cyanosis. Peripheral pulses are intact. - Labs CBC & Chem 7: 03/18/24 06:27 03/19/24 10:53 Labs: Abnormal Lab Results - Last 24 Hours (Table) 03/19/24 Range/Units 10:53 HDL Cholesterol 36.40 L (40.00-60.00) mg/dL Assessment and Plan Assessment: Acute submassive bilateral pulmonary emboli, with CT evidence of right-sided heart strain. Status post aspiration thrombectomy, postoperative day #3. T r[facility]itioned to [facility] Bilateral deep vein thrombosis, most likely triggered by a long car ride. A lthough the possibility of underlying hypercoagulable state is not entirely ruled out and needs to be addressed on outpatient basis Acute hypoxemic respiratory failure, secondary to above, resolved Acute cor pulmonale due to pulmonary embolism Recent prolonged immobilization, i.e., prolonged car ride Hypokalemia, improved Hypomagnesemia, being replaced History of hypertension History of GERD History of gastric ulcer and gastritis History of lumbar surgery, done at outside facility March, Plan: The patient was seen and evaluated Labs and medications reviewed Stable and on room air Transitioned to Eliquis Plan is for subacute rehab at [facility] I have personally seen and examined the patient, performed the documentation and the assessment and plan as written. Number of minutes spent on the visit: 10 Dictation was produced using [employer] dictation software. Please excuse any grammatical, word or spelling errors.
[2024-03-24] MEDS ORDERED: APIXABAN 5 MG TAB PO SCH (21:00)
== END 2024-03-20 14:12 | DRG 270 ==
LOC: EC 15:13 → 2SICU 19:33 → 3SCARD 03-18 21:15
PROVIDERS: ADMIT Internal Medicine Geriatric Medicine; ATTEND Internal Medicine Geriatric Medicine
PROC: B31S1ZZ Fluoroscopy of Right Pulmonary Artery using Low Osmolar Contrast (ICD-10-PCS; 2024-03-17)
PROC: 02CR3ZZ Extirpation of Matter from Left Pulmonary Artery, Percutaneous Approach (ICD-10-PCS; principal; 2024-03-17 11:00)
PROC: 02CQ3ZZ Extirpation of Matter from Right Pulmonary Artery, Percutaneous Approach (ICD-10-PCS; 2024-03-17 11:00)
PROC: 4A023N6 Measurement of Cardiac Sampling and Pressure, Right Heart, Percutaneous Approach (ICD-10-PCS; 2024-03-17 11:00)
PROC: B31T1ZZ Fluoroscopy of Left Pulmonary Artery using Low Osmolar Contrast (ICD-10-PCS; 2024-03-17 11:00)
DX: I82.411 Acute embolism and thrombosis of right femoral vein (principal); I21.A1 Myocardial infarction type 2; I26.02 Saddle embolus of pulmonary artery with acute cor pulmonale; J96.01 Acute respiratory failure with hypoxia; E87.1 Hypo-osmolality and hyponatremia; I82.412 Acute embolism and thrombosis of left femoral vein; I82.431 Acute embolism and thrombosis of right popliteal vein; I82.4Z1 Acute embolism and thrombosis of unspecified deep veins of right distal lower extremity; E87.6 Hypokalemia; I10 Essential (primary) hypertension; I27.20 Pulmonary hypertension, unspecified; E78.5 Hyperlipidemia, unspecified; E83.42 Hypomagnesemia; I27.21 Secondary pulmonary arterial hypertension; M48.00 Spinal stenosis, site unspecified; N39.490 Overflow incontinence; R29.6 Repeated falls; Z79.01 Long term (current) use of anticoagulants; Z79.82 Long term (current) use of aspirin; Z79.899 Other long term (current) drug therapy; Z87.11 Personal history of peptic ulcer disease; Z98.84 Bariatric surgery status; Z90.49 Acquired absence of other specified parts of digestive tract; R00.0 Tachycardia, unspecified
CPT/HCPCS: 36415; 37184; 71046; 71275; 75743; 80053; 80061; 81001; 83605; 83735; 83880; 84132; 84484; 85025; 85379; 85610; 85730; 87636; 93005; 93306; 93308; 93451; 93970; 96361; 96365; 96366; 96368; 99285

== ENCOUNTER 2024-04-23 06:25 | Inpatient (IN) | payer MEDICARE ==
[2024-04-23] MEDS ORDERED: LORazepam 2 MG/ML INJ IV PRN ×2 (06:42)
[2024-04-23] MEDS ORDERED: chlordiazePOXIDE 25 MG CAP PO PRN (06:42)
--- NOTE | 2024-04-23 06:42 | ED ---
General Adult HPI - General Chief complaint: Weakness Stated complaint: Weakness, ETOH Time Seen by Provider: 04/23/24 06:30 Source: patient, EMS Mode of arrival: EMS - History of Present Illness Initial comments: This patient is a 73-year-old woman who is transferred here from [facility] with concern of developing alcohol withdrawal. The patient had been taken there by EMS after they had been called to her home twice in the day for wellness check. The patient did appear markedly intoxicated and had a ground- level fall at home. At the other facility, the patient had workup including head CT that is reported to be negative. The patient had labs with an alcohol l evel of 290, the patient also initially hypoglycemic with blood sugar of 31. She had been given dextrose. The patient also had total of 3 mg Ativan and was transferred here. On evaluation, the patient here feeling slightly anxious. She is denying other complaints other than feeling thirsty and requesting water. -: hour(s) Severity scale (1-10): 0 Improves with: none Worsens with: none Associated Symptoms: denies other symptoms Treatments Prior to Arrival: other (Ativan, dextrose) - Related Data Home Medications Medication Instructions Recorded Confirmed Mirabegron [Myrbetriq] 25 mg PO DAILY 03/16/24 04/23/24 Pantoprazole [Protonix] 40 mg PO DAILY 03/16/24 04/23/24 Apixaban [Eliquis] 5 mg PO BID 04/23/24 04/23/24 Omeprazole [PriLOSEC] 20 mg PO BID 04/23/24 04/23/24 amLODIPine [Norvasc] 5 mg PO DAILY 04/23/24 04/23/24 Previous Rx's Medication Instructions Recorded Aspirin 81 mg PO DAILY tab 03/20/24 Atorvastatin [Lipitor] 20 mg PO HS tab 03/20/24 Acetaminophen Tab [Tylenol] 325 mg PO Q6HR PRN tab 04/27/24 Gabapentin [Neurontin] 100 mg PO TID #60 cap 04/27/24 Naltrexone HCl [Revia] 50 mg PO HS #30 tab 04/27/24 QUEtiapine [SEROquel] 50 mg PO HS #30 tab 04/27/24 Tamsulosin [Flomax] 0.4 mg PO DAILY #7 cap 04/27/24 Thiamine [Vitamin B-1] 100 mg PO DAILY #30 tab 04/27/24 cefuroxime axetiL [Ceftin] 500 mg PO BID 7 Days #14 tab 04/27/24 Allergies Allergy/AdvReac Type Severity Reaction Status Date / Time No Known Allergies Allergy Verified 04/23/24 09:49 Review of Systems ROS Statement: Those systems with pertinent positive or pertinent negative responses have been documented in the HPI. ROS Other: All systems not noted in ROS Statement are negative. Constitutional: Denies: fever, weakness Eyes: Denies: vision change Respiratory: Denies: cough, dyspnea Cardiovascular: Denies: chest pain, palpitations, syncope Gastrointestinal: Denies: abdominal pain, vomiting, diarrhea, melena, hematochezia Genitourinary: Denies: dysuria Musculoskeletal: Reports: back pain (Chronic back pain) Skin: Denies: rash Neurological: Denies: headache, weakness, numbness, confusion Psychiatric: Denies: depression, homicidal thoughts, suicidal thoughts Past Medical History Past Medical History: GERD/Reflux, Hypertension Additional Past Medical History / Comment(s): stomach ulcers x2 in 2015, current anemia History of Any Multi-Drug Resistant Organisms: None Reported Past Surgical History: Back Surgery, Bariatric Surgery, Cholecystectomy, Orthopedic Surgery, Tonsillectomy Additional Past Surgical History / Comment(s): gastric sleeve in 2009, EGD, ORIF right arm. L2-L5 repair 2022. Past Anesthesia/Blood Transfusion Reactions: No Reported Reaction Past Psychological History: No Psychological Hx Reported Smoking Status: Never smoker Past Alcohol Use History: Occasional Past Drug Use History: None Reported - Past Family History Mother Family Medical History: Cancer Additional Family Medical History / Comment(s): breast General Exam General appearance: alert, appears intoxicated Head exam: Present: atraumatic, normocephalic Eye exam: Present: normal appearance, PERRL, EOMI, nystagmus. Absent: scleral icterus, conjunctival injection ENT exam: Present: mucous membranes dry Neck exam: Present: normal inspection, full ROM. Absent: tenderness Respiratory exam: Present: normal lung sounds bilaterally. Absent: respiratory distress, wheezes, rales, rhonchi, stridor, accessory muscle use Cardiovascular Exam: Present: normal rhythm, tachycardia, normal heart sounds. Absent: systolic murmur, diastolic murmur, rubs, gallop GI/Abdominal exam: Present: soft. Absent: distended, tenderness, guarding, rebound, rigid, mass Extremities exam: Present: normal inspection, normal capillary refill. Absent: pedal edema, calf tenderness Back exam: Present: normal inspection. Absent: CVA tenderness (R), CVA tenderness (L) Neurological exam: Present: alert, CN II-XII intact. Absent: motor sensory deficit Psychiatric exam: Absent: suicidal ideation Skin exam: Present: warm, dry, intact, normal color. Absent: rash Course Vital Signs 04/23/24 04/23/24 04/23/24 06:27 07:44 08:09 Temperature 97.8 F Pulse Rate 114 H 114 H 108 H Respiratory 16 14 14 Rate Blood Pressure 145/86 139/83 146/79 O2 Sat by Pulse 96 96 94 L Oximetry 04/23/24 04/23/24 04/23/24 09:18 10:22 12:24 Temperature Pulse Rate 116 H 112 H 110 H Respiratory 14 14 18 Rate Blood Pressure 147/93 138/81 158/96 O2 Sat by Pulse 95 95 95 Oximetry 04/23/24 04/23/24 04/23/24 13:00 16:34 18:00 Temperature 99.6 F Pulse Rate 113 H 116 H 105 H Respiratory 18 18 18 Rate Blood Pressure 138/87 159/100 144/92 O2 Sat by Pulse 96 95 95 Oximetry 04/23/24 04/23/24 20:47 20:56 Temperature 99.7 F H Pulse Rate 110 H Respiratory 18 Rate Blood Pressure 166/98 O2 Sat by Pulse 95 Oximetry Medical Decision Making - Medical Decision Making Was pt. sent in by a medical professional or institution ( PA, SOFTWARE DEVELOPMENT INTERN, urgent care, hospital, or half-way...) When possible be specific @ -[No] Did you speak to anyone other than the patient for history (EMS, parent, family, police, friend...)? What history was obtained from this source @ -[No] Did you review nursing and triage notes (agree or disagree)? Why? @ -[I reviewed and agree with nursing and triage notes] Were old charts reviewed (outside hosp., previous admission, EMS record, old EKG, old radiological studies, urgent care reports/EKG's, half-way records)? Report findings @ -[No old charts were reviewed] Differential Diagnosis (chest pain, altered mental status, abdominal pain women, abdominal pain men, vaginal bleeding, weakness, fever, dyspnea, syncope, headache, dizziness, GI bleed, back pain, seizure, CVA, palpatations, mental health, musculoskeletal)? @ -[Differential Mental Health Depression, anxiety, bipolar, psychosis, schizophrenia, borderline personality, situational depression, adjustment disorder, behavioral disorder, brain tumor, malingering, substance abuse, encephalopathy, medication reaction, dementia, hypothyroidism, degenerative neurologic disorder, lupus.... This is not meant to be all-inclusive list EKG interpreted by me (3pts min.). @ -[As above] X-rays interpreted by me (1pt min.). @ -[None done] CT interpreted by me (1pt min.). @ -[None done] U/S interpreted by me (1pt. min.). @ -[None done] What testing was considered but not performed or refused? (CT, X-rays, U/S, labs)? Why? @ -[None] What meds were considered but not given or refused? Why? @ -[None] Did you discuss the management of the patient with other professionals (professionals i.e. , PA, SOFTWARE DEVELOPMENT INTERN, lab, RT, psych nurse, social insurance specialist, allocations clerk, teacher, credit compliance officer, business case analyst)? Give summary @ -[Case discussed with admitting physician and treatment recommendations are incorporated Was smoking cessation discussed for >3mins.? @ -[No] Was critical care preformed (if so, how long)? @ -[No] Were there social determinants of health that impacted care today? How? (Homelessness, low income, unemployed, alcoholism, drug addiction, transporta tion, low edu. Level, literacy, decrease access to med. care, alf, rehab)? @ -[No] Was there de-escalation of care discussed even if they declined (Discuss DNR or withdrawal of care, Hospice)? DNR status @ -[No] What co-morbidities impacted this encounter? (DM, HTN, Smoking, COPD, CAD, Cancer, CVA, ARF, Chemo, Hep., AIDS, mental health diagnosis, sleep apnea, morbid obesity)? @ -[None] Was patient admitted / discharged? Hospital course, mention meds given and route, prescriptions, significant lab abnormalities, going to OR and other pertinent info. @ -[Patient is a 73-year-old woman transferred here to have treatment for alcohol withdrawal. Patient started on CIWA protocol and will be admitted. Undiagnosed new problem with uncertain prognosis? @ -[No] Drug Therapy requiring intensive monitoring for toxicity (Heparin, Nitro, Insulin, Cardizem)? @ -[No] Were any procedures done? @ -[No] Diagnosis/symptom? @ -[Alcohol withdrawal syndrome Acute, or Chronic, or Acute on Chronic? @ -[Acute Uncomplicated (without systemic symptoms) or Complicated (systemic symptoms)? @ -[default] Side effects of treatment? @ -[No] Exacerbation, Progression, or Severe Exacerbation? @ -[No] Poses a threat to life or bodily function? How? (Chest pain, [place], [place], pneumonia, PE, COPD, DKA, ARF, appy, cholecystitis, CVA, Diverticulitis, Homicidal, Suicidal, threat to staff... and all critical care pts) @ -[Yes there is significant risk of morbidity and mortality associated with alcohol withdrawal - Lab Data Result diagrams: 04/27/24 06:05 04/27/24 06:05 Disposition Clinical Impression: Alcohol withdrawal Disposition: ADMITTED IP TO THIS HOSP Condition: Fair Is patient prescribed a controlled substance at d/c from ED?: No
[2024-04-23] MEDS ORDERED: ONDANSETRON 4 MG/2 ML VIAL IVP PRN (06:43)
[2024-04-23] MEDS ORDERED: NALOXONE 0.4 MG/ML 1 ML VIAL IV PRN (06:43)
[2024-04-23] MEDS: LORazepam 2 MG/ML INJ IV STA (07:08)
[2024-04-23] MEDS: THIAMINE 100 MG/ML 2 ML VIAL IM STA (07:09)
[2024-04-23] MEDS: SODIUM CHLORIDE 0.9% 1,000 ML IV ONE (07:09)
[2024-04-23] MEDS: SODIUM CHLORIDE 0.9% 1,000 ML IV SCH (07:09)
[2024-04-23 07:12] LABS: ALT 20 U/L (4-34); AST 48 U/L (14-36); African American GFR (CKD) >90 (>60 ml/min/1.73 sqM); Albumin 2.7 g/dL (3.5-5.0); Alkaline Phosphatase 140 U/L (38-126); Anion Gap 7 mmol/L; Blood Urea Nitrogen 10 mg/dL (7-17); Carbon Dioxide 21 mmol/L (22-30); Chloride 112 mmol/L (98-107); Glucose 54 mg/dL (74-99); Non-African American GFR(CKD) 82 (>60 ml/min/1.73 sqM); Sodium 140 mmol/L (137-145); Total Bilirubin 0.4 mg/dL (0.2-1.3); Total Protein 5.3 g/dL (6.3-8.2)
[2024-04-23 07:21] LABS: Anisocytosis Slight; Basophils % (A) 1 %; Eosinophils # (A) 0.2 k/uL (0-0.7); Eosinophils % (A) 2 %; HCT 33.9 % (34.0-46.0); HGB 10.6 gm/dL (11.4-16.0); Hypochromasia Slight; Lymphocytes # (A) 1.4 k/uL (1.0-4.8); Lymphocytes % (A) 16 %; MCH 31.8 pg (25.0-35.0); MCHC 31.3 g/dL (31.0-37.0); MCV 101.7 fL (80.0-100.0); Macrocytosis Moderate; Monocytes # (A) 0.4 k/uL (0-1.0); Monocytes % (A) 5 %; Neutrophils # (A) 6.6 k/uL (1.3-7.7); Neutrophils % (A) 75 %; Platelet Count 465 k/uL (150-450); RBC 3.34 m/uL (3.80-5.40); WBC 8.8 k/uL (3.8-10.6)
[2024-04-23] MEDS: PANTOPRAZOLE 40 MG TABLET PO SCH (08:37)
[2024-04-23] MEDS: FAMOTIDINE 20 MG/2 ML VIAL IV SCH (09:20)
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
[2024-04-23] MEDS: GABAPENTIN 400 MG CAP PO SCH (16:41)
[2024-04-23] MEDS: LORazepam 2 MG/ML INJ IV PRN (16:42)
[2024-04-23] MEDS: APIXABAN 5 MG TAB PO SCH (22:46)
[2024-04-23] MEDS: FAMOTIDINE 20 MG TAB PO SCH (22:46)
[2024-04-23] MEDS: ATORVASTATIN 20 MG TAB PO SCH (23:06)
[2024-04-24] MEDS: THIAMINE 100 MG TAB PO SCH (07:59)
[2024-04-24] MEDS: ASPIRIN 81 MG PO SCH (07:59)
[2024-04-24] MEDS: amLODIPine 5 MG TAB PO SCH (08:02)
[2024-04-24 09:58] LABS: Basophils # (A) 0.08 X 10*3/uL (0.00-0.10); Basophils % (A) 0.8 %; Eosinophils # (A) 0.04 X 10*3/uL (0.04-0.35); Eosinophils % (A) 0.4 %; HCT 32.5 % (37.2-46.3); HGB 10.7 g/dL (12.0-15.0); Lymphocytes # (A) 0.97 X 10*3/uL (0.90-5.00); Lymphocytes % (A) 9.9 %; MCH 31.6 pg (27.0-32.0); MCHC 32.9 g/dL (32.0-37.0); MCV 95.9 FL (80.0-97.0); Mean Platelet Volume 10.5 FL (9.5-12.2); Monocytes # (A) 1.14 X 10*3/uL (0.20-1.00); Monocytes % (A) 11.6 %; NRBC Per 100 WBC 0 X 10*3/uL (0.00-0.01); Neutrophils # (A) 7.54 X 10*3/uL (1.80-7.70); Neutrophils % (A) 76.8 %; Platelet Count 468 X 10*3/uL (140-440); RBC 3.39 X 10*6/uL (4.10-5.20); RDW 17.5 % (11.5-14.5); WBC 9.82 X 10*3/uL (4.50-10.00)
--- NOTE | 2024-04-24 10:53 | P.PN ---
Subjective This is a pleasant 73 years old female with past medical history of alcohol use disorder and other medical problems as below Presents from [facility] for alcohol use and possible suicidal ideation Patient is awake alert currently states that she is complaining from back pain. As per transfer papers patient was called police for her twice when they came with EMS she was heavily intoxicated, and when they came the second time she was in the same position also and deconditioned and she was petitioned to the hospital. Patient currently awake alert, she states she drinks 2 pints every week and she drinks 2 days/week each day she drinks 1 point however it was mentioned in the transfer paper that she drinks daily. She denies smoking or illicit drugs She states she has good appetite no abdominal pain or vomiting She has 1 loose stool yesterday no blood She denies urinary complaint or change in frequency or dysuria She denies headache dizziness weakness numbness She denies chest pain dyspnea or coughing Patient hemodynamically stable and afebrile She has unremarkable CBC, BMP, LFTs. She is mildly tachycardic. Hemoglobin 10.6. CT of the brain at the transfer paper report reviewed and it was no acute process The report of chest x-ray at the transfer paper also showing no acute cardiopulmonary process 04/24 Patient is more sleepy this morning. Last night she got extra dose of Ativan for anxiety and also started on gabapentin, earlier it was easier to wake up. Currently she woke up to verbal and tactile stimuli but go back to sleep right away. Patient herself could not tell if she complains from anything. Abdomen soft and no tenderness. She has been a lot more than 400, recommend to check a bladder scan and urine analysis and urine culture Also will send blood culture and inflammatory markers Will check chest x-ray Will order CT of the brain Other than that patient has no leukocytosis. But she has low-grade fever. BMP still pending We lowered gabapentin dose down to 100 mg. Patient ate little bit, no significant bowel movement. No obvious rash Active Medications Generic Name Dose Route Start Last Admin Trade Name Freq PRN Reason Stop Dose Admin Amlodipine Besylate 5 mg 04/24/24 09:00 04/24/24 08:02 Amlodipine 5 Mg Tab PO 5 mg DAILY RASHAAD Administration Apixaban 5 mg 04/23/24 21:00 04/24/24 08:00 Apixaban 5 Mg Tab PO 5 mg BID RASHAAD Administration Protocol Aspirin 81 mg 04/24/24 09:00 04/24/24 07:59 Aspirin 81 Mg PO 81 mg DAILY RASHAAD Administration Atorvastatin Calcium 20 mg 04/23/24 21:00 04/23/24 23:06 Atorvastatin 20 Mg Tab PO 20 mg HS RASHAAD Administration Chlordiazepoxide HCl 50 mg 04/23/24 06:42 Chlordiazepoxide 25 Mg Cap PO Q4HR PRN Ciwa 6 To 7 Famotidine 20 mg 04/23/24 21:00 04/24/24 07:59 Famotidine 20 Mg Tab PO 20 mg BID RASHAAD Administration Gabapentin 100 mg 04/24/24 16:00 Gabapentin 100 Mg Cap PO TID RASHAAD Sodium Chloride 1,000 mls @ 75 mls/hr 04/23/24 06:45 04/24/24 07:47 Saline 0.9% IV Not Given .[id number] RASHAAD Lorazepam 2 mg 04/23/24 06:42 Lorazepam 2 Mg/Ml Inj IV 04/25/24 06:42 Q10M PRN CIWA 16 or higher Lorazepam 1 mg 04/23/24 06:42 04/23/24 16:42 Lorazepam 2 Mg/Ml Inj IV 1 mg Q2HR PRN Administration CIWA 8 or 9 Lorazepam 1 mg 04/23/24 06:42 Lorazepam 2 Mg/Ml Inj IV Q1HR PRN CIWA 10 to 15 Naloxone HCl 0.2 mg 04/23/24 06:43 Naloxone 0.4 Mg/Ml 1 Ml Vial IV Q2M PRN Opioid Reversal Ondansetron HCl 4 mg 04/23/24 06:43 Ondansetron 4 Mg/2 Ml Vial IVP Q8HR PRN Nausea And Vomiting Pantoprazole Sodium 40 mg 04/23/24 09:00 04/24/24 07:59 Pantoprazole 40 Mg Tablet PO 40 mg DAILY RASHAAD Administration Thiamine HCl 100 mg 04/24/24 09:00 04/24/24 07:59 Thiamine 100 Mg Tab PO 100 mg DAILY RASHAAD Administration Objective - Vital Signs Vital signs: Vital Signs Temp 100.4 F H 04/24/24 07:09 Pulse 107 H 04/24/24 07:09 Resp 18 04/24/24 07:09 BP 157/98 04/24/24 07:09 Pulse Ox 98 04/24/24 07:09 FiO2 Intake & Output 04/23/24 04/24/24 04/24/24 18:59 06:59 18:59 Intake Total 0 Output Total 525 Balance -525 Weight 61.235 kg Intake: Oral 0 Output: Urine 525 Other: Voiding Method External Catheter - Exam -GENERAL: The patient is more drowsy although she wakes up to stimuli she go back to sleep thereafter 3, not in any acute distress. Well developed, well nourished. HEENT: Pupils are round and equally reacting to light. EOMI. No scleral icterus. No conjunctival pallor. Normocephalic, atraumatic. No pharyngeal erythema. No thyromegaly. CARDIOVASCULAR: S1 and S2 present. No murmurs, rubs, or gallops. PULMONARY: Chest is clear to auscultation, no wheezing , no crackles. ABDOMEN: Soft, nontender, nondistended, normoactive bowel sounds. No palpable organomegaly. MUSCULOSKELETAL: No joint swelling or deformity. EXTREMITIES: No cyanosis, clubbing, or pedal edema. NEUROLOGICAL: Gross neurological examination did not reveal any focal deficits. SKIN: No rashes. no petechiae. - Labs CBC & Chem 7: 04/24/24 03:16 04/23/24 06:44 Labs: Abnormal Lab Results - Last 24 Hours (Table) 04/24/24 Range/Units 03:16 RBC 3.39 L (4.10-5.20) X 10*6/uL Hgb 10.7 L (12.0-15.0) g/dL Hct 32.5 L (37.2-46.3) % RDW 17.5 H (11.5-14.5) % Plt Count 468 H (140-440) X 10*3/uL Immature Gran # 0.05 H (0.00-0.04) X 10*3/uL Monocytes # 1.14 H (0.20-1.00) X 10*3/uL Assessment and Plan Assessment: Altered mental status, most likely metabolic/toxic encephalopathy. Need to rule out intracranial causes Fever up to 100.6, started last night 04/23 Alcohol use disorder at risk of alcohol withdrawal Possible depression, possible suicidal ideation, however patient currently denies. Patient was petitioned this by PD Chronic back pain in the lower lumbar region Gastroesophageal reflux disease Hypertension Hard of hearing Difficulty taking care of herself Hyperlipidemia Plan: Will do sepsis workup, chest x-ray, urine analysis, UC, BC Check CT of the brain Consult infectious disease team and neurologist Continue with CIWA protocol Continue with thiamine Continue with gentle hydration, 75 mL/h Psychiatry team consult Lower dose of gabapentin. Patient confirms to me she takes Eliquis at home, she cannot remember why Labs and medication were reviewed.. Continue same treatment. Continue with symptomatic treatment. Resume home medication. Monitor labs and vitals. DVT and GI prophylaxis. Further recommendations as per clinical course of the patient DVT prophylaxis: Eliquis GI Prophylaxis: Pepcid PT/OT: Pending Prognosis is guarded
--- NOTE | 2024-04-24 11:34 | P.CNNES ---
History of Present Illness Consult date: 04/24/24 Reason for Consult: History of alcoholism with likely withdrawal and altered mental status. Chief complaint: Patient has only garbled speech. History of Present Illness: Ms. Paz is a 73-year-old female with history of gastroesophageal reflux disease as well as hypertension who was admitted to [facility] in transfer from [facility] on April 23 with symptoms of alcohol withdrawal. She is status post ground-level fall and complaining of some back pain at that time. She was nervous overnight and was given Ativan 2 mg. This morning she is significantly sedated though she does attempt to state her name and she can follow simple commands. CT of the head was reportedly negative at the outside h ospital. She does have a mild fever at this time approximately 100. She is currently on Librium 50 mg every 4 hours for management of alcohol withdrawal. Neurology was consulted for further management recommendations. Of note the patient does not appear grossly tremulous at this time. Review of Systems Review of systems was limited secondary to patient's altered mental status. Past Medical History Past Medical History: GERD/Reflux, Hypertension Additional Past Medical History / Comment(s): stomach ulcers x2 in 2015, current anemia History of Any Multi-Drug Resistant Organisms: None Reported Past Surgical History: Back Surgery, Bariatric Surgery, Cholecystectomy, Orthopedic Surgery, Tonsillectomy Additional Past Surgical History / Comment(s): gastric sleeve in 2009, EGD, ORIF right arm. L2-L5 repair 2022. Past Anesthesia/Blood Transfusion Reactions: No Reported Reaction Past Psychological History: No Psychological Hx Reported Smoking Status: Never smoker Past Alcohol Use History: Occasional Past Drug Use History: None Reported - Past Family History Mother Family Medical History: Cancer Additional Family Medical History / Comment(s): breast Medications and Allergies Home Medications Medication Instructions Recorded Confirmed Type Mirabegron [Myrbetriq] 25 mg PO DAILY 03/16/24 04/23/24 History Pantoprazole [Protonix] 40 mg PO DAILY 03/16/24 04/23/24 History Aspirin 81 mg PO DAILY tab 03/20/24 04/23/24 Rx Atorvastatin [Lipitor] 20 mg PO HS tab 03/20/24 04/23/24 Rx Zolpidem [Ambien] 5 mg PO HS PRN #2 tab 03/20/24 04/23/24 Rx Apixaban [Eliquis] 5 mg PO BID 04/23/24 04/23/24 History Omeprazole [PriLOSEC] 20 mg PO BID 04/23/24 04/23/24 History amLODIPine [Norvasc] 5 mg PO DAILY 04/23/24 04/23/24 History Allergies Allergy/AdvReac Type Severity Reaction Status Date / Time No Known Allergies Allergy Verified 04/23/24 09:49 Physical Examination - Vital Signs Vital Signs: Vital Signs Temp Pulse Pulse Resp BP BP Pulse Ox 04/24/24 07:09 100.4 F H 107 H 18 157/98 98 04/24/24 00:01 100.6 F H 111 H 20 160/91 91 L 04/23/24 21:37 100.3 F H 117 H 19 168/83 96 04/23/24 20:56 99.7 F H 04/23/24 20:47 110 H 18 166/98 95 04/23/24 18:00 105 H 18 144/92 95 04/23/24 16:34 99.6 F 116 H 18 159/100 95 04/23/24 13:00 113 H 18 138/87 96 04/23/24 12:24 110 H 18 158/96 95 Intake and Output 04/23/24 04/24/24 04/24/24 22:59 06:59 14:59 Intake Total 0 Output Total 525 651 Balance -525 -651 Intake: Oral 0 Output: Urine 525 Post Void Residual 651 Other: Voiding Method External Catheter Weight 61.235 kg - Constitutional General appearance: average body habitus - EENT EENT: PERRL - Respiratory Respiratory: chest non-tender, lungs clear, normal breath sounds - Cardiovascular Cardiovascular: regular rate, no murmurs Extremities: no peripheral edema bilaterally - Gastrointestinal Gastrointestinal: normoactive bowel sounds, soft, non-tender - Integumentary Integumentary: normal - Neurologic The patient's exam was somewhat limited by her altered mental status. However she was able to withdraw all 4 extremities and exhibited sensory sensation bilaterally. She can follow simple commands when asked to point to the ceiling and point to the floor but she could not answer complex commands such as "point to the ceiling after you point to the floor." Cranial nerve examination: PERRL, EOMI, VFF, V1/V2/V3 grossly intact, face symmetric, tongue midline Detailed motor examination: grossly full strength in all extremities Detailed sensory examination: other (Patient withdrew all 4 extremities to distal stimulation.) Reflex and gait examination: other (Reflexes are 1+ and symmetrical plantar responses downgoing bilaterally.) Results CT scan without contrast from outside hospital was apparently reported is negative. - Laboratory Findings CBC and BMP: 04/24/24 03:16 04/23/24 06:44 Abnormal Lab Findings: Abnormal Labs 04/23/24 04/23/24 04/24/24 06:44 06:44 03:16 RBC 3.34 L 3.39 L Hgb 10.6 L 10.7 L Hct 33.9 L 32.5 L MCV 101.7 H RDW 17.0 H 17.5 H Plt Count 465 H 468 H Immature Gran # 0.05 H Monocytes # 1.14 H Chloride 112 H Carbon Dioxide 21 L Glucose 54 L Calcium 8.0 L AST 48 H Alkaline Phosphatase 140 H Total Protein 5.3 L Albumin 2.7 L Assessment and Plan Assessment: Ms. Paz is a 73 year-old female with history of alcohol abuse as well as gastroesophageal reflux disease and hypertension. She was admitted in transfer last night with symptoms of alcohol withdrawal. This morning she is mildly febrile as well as confused. This may be due to excessive Ativan given overnight however creatinine does not appear significantly impaired. Her CT scan was again reportedly negative. I believe she may be in the early stages of delirium tremens at this time however she does not appear tremulous. Plan: 1. I recommend continuing her on Librium 50 mg every 4 hours as needed for alcohol withdrawal as well as the remainder of the CIWA protocol. 2. I have ordered thyroid-stimulating hormone with reflex T4, vitamin B12 level, and serum ammonia level to look for other causes of altered mental status. 3. I have also given Seroquel 50 mg nightly to help regulate her sleep cycle and attempt to help her be more alert during the day. 4. Neurology will continue to follow the patient in house and make further recommendations as needed. Time with Patient: Less than 30
--- NOTE | 2024-04-24 11:40 | XR ---
2 view chest. HISTORY: Fever. COMPARISON: 03/16/2024. TECHNIQUE: PA and lateral views of the chest were obtained. FINDINGS: The lungs are clear of consolidative, interstitial or masslike opacity. There is no pleural effusion, pleural thickening or pneumothorax. The heart, pulmonary vasculature, mediastinum and shahnaz are within normal limits. The osseous structures and soft tissues of the thorax are intact. IMPRESSION: No significant abnormality. No acute cardiopulmonary disease. [facility], , 04/24/2024 11:38 AM
--- NOTE | 2024-04-24 12:33 | P.CN ---
Psychiatric Consult - . Consult date: 04/24/24 Consult:: 04/24/24 12:28 IDENTIFYING DATA: This patient is a 73-year-old female REASON FOR REFERRAL: Psychiatry was consulted for alc, depressed, possible SI HISTORY OF PRESENT ILLNESS: The patient presented to the hospital for alcohol w ithdrawal. ETOH was 290 and patient was started on CIWA protocol with Librium scheduled. Patient reportedly drinks 2 pints per week. Patient seen and evaluated in her room with sitter at bedside. Patient reports feeling depressed for the past 2-3 months however was not able to elicit any triggers on the outside. She does report recently getting surgery done on her back however states that the surgery went well. She reports being however her lives out of state for his job. She reports intermittently feeling lonely however she vehemently denies any suicidal thoughts. Patient appeared to minimize her alcohol use, stating she only drinks 2 cocktails per week. She was agreeable with starting naltrexone in hopes of maintaining sobriety outpatient. She was agreeable with following up with outpatient counseling. At this time patient denies any suicidal or homical ideations, intent or plan. Patient denies any auditory, visual hallucinations and denies any paranoia or delusions. Patients admits to using alcohol PAST PSYCHIATRIC HISTORY: Patient has a a history of gall use disorder. Patient denies being on any psychiatric medications. Patient denies any previous p sychiatric hospitalizations. Patient denies any psychiatric outpatient follow- up. Patient denies any history of suicide attempts in the past. PAST MEDICAL HISTORY: GERD, hypertension. ALLERGIES: as per EMR. CHEMICAL DEPENDENCY HISTORY: as per HPI. FAMILY PSYCHIATRIC/SUBSTANCE USE HISTORY: She reports her mother was depressed SOCIAL HISTORY: Patient is however her lives out of state. MENTAL STATUS EXAM: General Appearance: Patient appears to be stated age is alert, pleasant, and cooperative however somewhat confused. Patient appears to have fair hygiene and grooming wearing hospital gown with fair eye contact. Behavior: Patient is calmly lying in bed without any agitated behavior. Speech: Patient's speech is fluent and nonpressured. Mood/Affect: Patient reports their mood is "okay", affect is congruent Suicidality/Homicidality: Patient denies having any suicidal or homicidal ideation intent or plan. Perceptions: Patient denies any visual hallucinations and denies any auditory hallucinations Though content/process: There is no evidence of any delusional thought content and thought process is linear and goal-directed. Memory and concentration: AOX3, grossly intact for the purposes of this session. Judgment and insight: Poor IMPRESSIONS: Alcohol use disorder, severe in withdrawal Depression, unspecified PLAN: -At this time patient DOES NOT meet criteria for inpatient psychiatric admission. -Would recommend the following medication changes/additions: Start naltrexone 50 mg at bedtime for alcohol cravings -CIWA protocol with PRN Ativan for alcohol withdrawal. Continue to monitor vital signs. Also on Librium -Can discontinue 1:1 sitter at this time as patient is not currently an imminent threat to themselves -putty and patch worker to provide patient with outpatient mental health/psychiatry resources for appropriate follow up upon discharge -Door To Door Selling Agent spoke with patient about substance abuse and the harmful effects on medical and mental health, patient verbally understood and agreed. -putty and patch worker to provide patient substance use treatment resources including AA/NA meetings in the community. -Communicated plan to patient's nurse -Psychiatry will sign off at this time -Please contact with any questions. 04/24/24 12:32
[2024-04-24 12:39] LABS: Appearance,Urine Cloudy (Clear); Bacteria,Urine Rare /hpf; Bilirubin,Urine Negative (Negative); Blood,Urine Trace (Negative); Color,Urine Colorless; Glucose,Urine (UA) Negative (Negative); Ketones,Urine Negative (Negative); Leukocyte Esterase,Urine Large (Negative); Mucus,Urine Rare /hpf; Nitrite,Urine Positive (Negative); PH, Urine 6.5 (5.0-8.0); Protein,Urine Negative (Negative); RBC,Urine 1 /hpf (0-5); Squamous Epithelial Cell,Urine 1 /hpf (0-4); Urobilinogen,Urine <2.0 mg/dL (<2.0); WBC,Urine >182 /hpf (0-5)
[2024-04-24 13:09] LABS: BUN/Creat Ratio 9.86 Ratio (12.00-20.00); Blood Urea Nitrogen 6.9 mg/dL (9.0-27.0); Calcium 8.3 mg/dL (8.7-10.3); Carbon Dioxide 23.4 mmol/L (21.6-31.8); Chloride 105 mmol/L (96-109); Glucose 79 mg/dL (70-110); Potassium 4.1 mmol/L (3.5-5.5); Sodium 139 mmol/L (135-145)
--- NOTE | 2024-04-24 13:11 | CT ---
EXAMINATION TYPE: CT brain wo con DATE OF EXAM: 04/24/2024 COMPARISON: None CLINICAL INDICATION: Female, 73 years old with history of ams; PHH, CT DLP: mGycm Automated exposure control for dose reduction was used. Findings: The ventricles, basal cisterns and sulci over convexities are moderately enlarged consistent with mod erate generalized atrophy, appropriate for the patient's age. There is moderate decreased density in the periventricular white matter consistent with chronic ische ottoniel white matter demyelination. There is no mass effect or shift of midline structures. There is no acute intra or extra-axial hemorrhage. The posterior fossa including the brainstem, fourth ventricle and cerebellopontine angles appear munira sly normal. The intraorbital contents appear normal symmetric Visualized paranasal sinuses and mastoid air cells are well aerated. Calvarium is intact. IMPRESSION: 1. Age appropriate senescent changes as described above. 2.. No acute bleed or mass effect. [facility], , 04/24/2024 1:09 PM
[2024-04-24] MEDS: GABAPENTIN 100 MG CAP PO SCH (16:13)
--- NOTE | 2024-04-24 21:24 | US ---
EXAMINATION TYPE: US renals and bladder DATE OF EXAM: 04/24/2024 COMPARISON: CT 12/13/2010 CLINICAL INDICATION: Female, 73 years old with history of uti, retention; UTI, retention per order. TECHNIQUE: Grayscale imaging of the bilateral kidneys and urinary bladder: FINDINGS: EXAM MEASUREMENTS: Right Kidney: 9.0 x 4.7 x 4.0 cm Left Kidney: 9.5 x 4.5 x 4.2 cm, measurement is limited. Pumping Plant Operator notes: Exam is very limited due to gas and rib shadow. Right Kidney: Appears slightly small. Hypoechoic area seen at mid= 1.7 x 1.3 x 0.9 cm. Left Kidney: Hypoechoic area seen laterally = 3.8 x 2.5 x 1.5 cm. No hydronephrosis on either side. Bladder: Limited visibility. What appears to be the bladder does not appear to be fully distended. Un able to properly evaluate. Within the midline pelvis extending into the left adnexa, there appears t o be an anechoic area with thin hypoechoic border measuring 8.5 x 8.9 x 7.9 cm- arterial and venous w aveforms shown peripherally. Bilateral Jets seen: No, unable to properly evaluate. IMPRESSION: 1. Suspect underlying chronic medical renal disease. 2. No hydronephrosis. 3. Possible 1.7 cm cortical cyst right kidney and 3.8 cm left mid kidney. Internal echoes could be ar tifactual or could represent debris. Recommend follow-up ultrasound in 3 months to reassess. 4. Exam limitations as mentioned above. However, there appears to be a cystic lesion measuring up to 8.9 cm within the pelvis extending into the left adnexa. An epithelial ovarian neoplasm, probably aydee ign, is in the differential. Pelvic ultrasound follow-up recommended. [facility], , 04/24/2024 9:21 PM
[2024-04-24] MEDS: NALTREXONE HCL 50 MG TAB PO SCH (21:34)
[2024-04-24] MEDS: ACETAMINOPHEN TAB 325 MG TAB PO PRN (21:35)
[2024-04-24] MEDS: QUEtiapine 50 MG TAB PO SCH (21:35)
[2024-04-25] MEDS: ACETAMINOPHEN TAB 325 MG TAB PO STA (00:16)
--- NOTE | 2024-04-25 08:53 | P.PN ---
Subjective Progress Note Date: 04/25/24 Principal diagnosis: Altered mental status with history of alcoholism and current urinary tract infection Ms. Paz is a 73-year-old female with history of gastroesophageal reflux disease as well as hypertension who was admitted to [facility] in transfer from [facility] on April 23 with symptoms of alcohol withdrawal. She is status post ground-level fall and complaining of some back pain at that time. She was nervous overnight and was given Ativan 2 mg. This morning she is significantly sedated though she does attempt to state her name and she can fol low simple commands. CT of the head was reportedly negative at the outside hospital. She does have a mild fever at this time approximately 100. She is currently on Librium 50 mg every 4 hours for management of alcohol withdrawal. When seen initially on April 24, labs were ordered (thyroid-stimulating hormone, vitamin B12, serum ammonia level. The patient was also placed on Seroquel 50 mg nightly to help regulate her sleep. On the morning of April 25, 2024, the patient was sleeping in bed but was easily arousable. She wants to go home. Urinary tract infection was noted yesterday on urinalysis with a 7718 white blood cells and large leukocyte esterase. She has been placed on ceftriaxone. She also continues on Librium for possible alcohol withdrawal. She reports that her last drink was 1 week ago but I am not entirely sure she is reliable. She has a nonfocal neurologic exam at this time. She appears to be improving. Pertinent laboratory results include a vitamin B12 level of 521. TSH is 2.390 and serum ammonia is less than 9. Ms. Paz is a 73 year-old female with history of alcohol abuse as well as gastroesophageal reflux disease and hypertension. She was admitted in transfer last night with symptoms of alcohol withdrawal. This morning she is mildly febrile as well as confused. This may be due to excessive Ativan given overnight however creatinine does not appear significantly impaired. Her CT scan was again reportedly negative. 1. The patient will continue on antibiotics for her urinary tract infection as well as management of her sleep at night with Seroquel. 2. The patient does not appear to have other metabolic abnormalities that would cause her altered mental status. 3. The patient appears to be gradually improving with regards to her mental status. 4. Neurology will continue to follow the patient, however it may be on an in termittent basis from this point forward as the patient appears to be making improvement and her diagnosis is likely related to urinary tract infection. Objective - Vital Signs Vital signs: Vital Signs Temp 98.2 F 04/25/24 07:11 Pulse 89 04/25/24 07:25 Resp 16 04/25/24 07:25 BP 145/87 04/25/24 07:11 Pulse Ox 93 L 04/25/24 07:11 FiO2 Intake & Output 04/24/24 04/25/24 04/25/24 18:59 06:59 18:59 Output Total 1726 950 Balance -1726 -950 Output: Urine 1075 950 Post Void Residual 651 Other: Voiding Method Indwelling Catheter Indwelling Catheter - Labs CBC & Chem 7: 04/24/24 03:16 04/24/24 03:16 Labs: Abnormal Lab Results - Last 24 Hours (Table) 04/24/24 04/24/24 04/24/24 Range/Units 03:16 03:16 12:16 RBC 3.39 L (4.10-5.20) X 10*6/uL Hgb 10.7 L (12.0-15.0) g/dL Hct 32.5 L (37.2-46.3) % RDW 17.5 H (11.5-14.5) % Plt Count 468 H (140-440) X 10*3/uL Immature Gran # 0.05 H (0.00-0.04) X 10*3/uL Monocytes # 1.14 H (0.20-1.00) X 10*3/uL BUN 6.9 L (9.0-27.0) mg/dL BUN/Creatinine Ratio 9.86 L (12.00-20.00) Ratio Calcium 8.3 L (8.7-10.3) mg/dL Urine Appearance Cloudy H (Clear) Urine Blood Trace H (Negative) Urine Nitrite Positive H (Negative) Ur Leukocyte Esterase Large H (Negative) Urine WBC >182 H (0-5) /hpf Urine WBC Clumps Occasional H (None) /hpf Urine Bacteria Rare H (None) /hpf Urine Mucus Rare H (None) /hpf
--- NOTE | 2024-04-25 08:55 | P.CONS ---
History of Present Illness - Reason for Consult Consult date: 04/24/24 Fever Requesting physician: [place] E Sheet - Chief Complaint Mental status changes x 1 day - History of Present Illness Patient is a 73-year-old female with a past medical history significant for hypertension reflux heavy alcohol abuse patient initially was taken to the [facility] by the EMS who were called in twice to the home for a wellness check patient was noted to be markedly intoxicated and have a ground-level fall at home patient did have a CT at [facility] was negative she did have alcohol level of 290 and she was hypoglycemic with a blood sugar of 31 she did receive dextrose and subsequently has been transferred to [facility] for further evaluation on arrival the patient was afebrile however the patient started spiking low-grade fever last evening and did have a temperature of 100.4 degrees following hide this morning that has prompted this consultation patient tried my evaluation was sleepy but arousable she denies garcia ving any headache to me she knows that she is at [facility] and that she lives in [facility] patient denies having any chest pain shortness of breath or cough no nausea vomiting abdominal pain and no diarrhea patient did have a white count of 9.82 creatinine 0.7 AST mildly elevated procalcitonin is normal patient did have a cloudy urine large leukocyte esterase more than 1-2 WB C did have a chest x-ray no significant normality Review of Systems Positive point and negatives has been mentioned in the HPI, complete review of systems was performed and all other systems are negative Past Medical History Past Medical History: GERD/Reflux, Hypertension Additional Past Medical History / Comment(s): stomach ulcers x2 in 2015, current anemia History of Any Multi-Drug Resistant Organisms: None Reported Past Surgical History: Back Surgery, Bariatric Surgery, Cholecystectomy, Orthopedic Surgery, Tonsillectomy Additional Past Surgical History / Comment(s): gastric sleeve in 2009, EGD, ORIF right arm. L2-L5 repair 2022. Past Anesthesia/Blood Transfusion Reactions: No Reported Reaction Past Psychological History: No Psychological Hx Reported Smoking Status: Never smoker Past Alcohol Use History: Occasional Past Drug Use History: None Reported - Past Family History Mother Family Medical History: Cancer Additional Family Medical History / Comment(s): breast Medications and Allergies Home Medications Medication Instructions Recorded Confirmed Type Mirabegron [Myrbetriq] 25 mg PO DAILY 03/16/24 04/23/24 History Pantoprazole [Protonix] 40 mg PO DAILY 03/16/24 04/23/24 History Aspirin 81 mg PO DAILY tab 03/20/24 04/23/24 Rx Atorvastatin [Lipitor] 20 mg PO HS tab 03/20/24 04/23/24 Rx Zolpidem [Ambien] 5 mg PO HS PRN #2 tab 03/20/24 04/23/24 Rx Apixaban [Eliquis] 5 mg PO BID 04/23/24 04/23/24 History Omeprazole [PriLOSEC] 20 mg PO BID 04/23/24 04/23/24 History amLODIPine [Norvasc] 5 mg PO DAILY 04/23/24 04/23/24 History Allergies Allergy/AdvReac Type Severity Reaction Status Date / Time No Known Allergies Allergy Verified 04/23/24 09:49 Physical Exam Vitals: Vital Signs Temp Pulse Pulse Resp BP BP Pulse Ox 04/24/24 07:09 100.4 F H 107 H 18 157/98 98 04/24/24 00:01 100.6 F H 111 H 20 160/91 91 L 04/23/24 21:37 100.3 F H 117 H 19 168/83 96 04/23/24 20:56 99.7 F H 04/23/24 20:47 110 H 18 166/98 95 04/23/24 18:00 105 H 18 144/92 95 04/23/24 16:34 99.6 F 116 H 18 159/100 95 04/23/24 13:00 113 H 18 138/87 96 04/23/24 12:24 110 H 18 158/96 95 Intake and Output 04/23/24 04/24/24 04/24/24 22:59 06:59 14:59 Intake Total 0 Output Total 525 651 Balance -525 -651 Intake: Oral 0 Output: Urine 525 Post Void Residual 651 Other: Voiding Method External Catheter Weight 61.235 kg GENERAL DESCRIPTION: Elderly female lying in bed, no distress. No tachypnea or a ccessory muscle of respiration use. HEENT: Shows Pallor , no scleral icterus. Oral mucous membrane is dry. No pharyngeal erythema or thrush NECK: Trachea central, no thyromegaly. LUNGS: Unlabored breathing. Clear to auscultation anteriorly. No wheeze or crackle. HEART: S1, S2, regular rate and rhythm. No loud murmur ABDOMEN: Soft, no tenderness , guarding or rigidity, no organomegaly EXTREMITIES: No edema of feet. SKIN: No rash, no masses palpable. NEUROLOGICAL: The patient was sleepy but is arousable and no that she is at [facility] and that she lives in [place]. No signs of meningeal irritation Results CBC & Chem 7: 04/24/24 03:16 04/24/24 03:16 Labs: Abnormal Lab Results - Last 24 Hours (Table) 04/24/24 Range/Units 03:16 RBC 3.39 L (4.10-5.20) X 10*6/uL Hgb 10.7 L (12.0-15.0) g/dL Hct 32.5 L (37.2-46.3) % RDW 17.5 H (11.5-14.5) % Plt Count 468 H (140-440) X 10*3/uL Immature Gran # 0.05 H (0.00-0.04) X 10*3/uL Monocytes # 1.14 H (0.20-1.00) X 10*3/uL Assessment and Plan (1) Urinary tract infection Current Visit: Yes Status: Acute Code(s): N39.0 - URINARY TRACT INFECTION, SITE NOT SPECIFIED SNOMED Code(s): 02063574 Plan: 1patient presented to hospital with mental status changes in this patient with a significant history of alcoholism now running a low-grade fever did have significantly positive UA likely the source of her fever patient currently do not have any other obvious focus of infection chest x-ray reported negative abdominal soft on clinical examination no evidence of any cellulitis or neck rigidity. 2we will start the patient on Rocephin 2 g daily while waiting for the culture to finalize. We will follow on clinical condition and cultures to further adjust medication if needed Thank you for this consultation we will follow the patient along with you Dictation was produced using [employer] software. please excuse any grammatical, word or spelling errors. Time with Patient: Greater than 30
--- NOTE | 2024-04-25 15:33 | P.PN ---
Subjective Progress Note Date: 04/25/24 Principal diagnosis: Reason for follow-up is a urinary tract infection Patient is a 73-year-old female with a past medical history significant for hypertension reflux heavy alcohol abuse patient initially was taken to the [facility] by the EMS who were called in twice to the home for a wellness check patient was noted to be markedly intoxicated and have a ground-level fall at home, patient did have a fever probably this consultation. On today's evaluation that is 04/25/2024, the patient did have resolution of her fever last temperature 100.2 last evening afebrile this morning patient is breathing comfortably on room air Sleepy but arousable no chest pain shortness with or cough no abdominal pain or diarrhea. No new lab has been obtained today urine is growing gram-negative bacilli Objective - Vital Signs Vital signs: Vital Signs Temp 98.6 F 04/25/24 13:50 Pulse 103 H 04/25/24 13:50 Resp 17 04/25/24 13:50 BP 136/88 04/25/24 13:50 Pulse Ox 93 L 04/25/24 13:50 FiO2 Intake & Output 04/24/24 04/25/24 04/25/24 18:59 06:59 18:59 Output Total 1726 950 Balance -1726 -950 Output: Urine 1075 950 Post Void Residual 651 Other: Voiding Method Indwelling Catheter Indwelling Catheter - Exam GENERAL DESCRIPTION: An elderly female lying in bed in no distress RESPIRATORY SYSTEM: Unlabored breathing , decreased breath sounds at bases HEART: S1 S2 regular rate and rhythm , ABDOMEN: Soft , no tenderness EXTREMITIES: No edema feet - Labs CBC & Chem 7: 04/24/24 03:16 04/24/24 03:16 Labs: Microbiology - Last 24 Hours (Table) 04/24/24 12:16 Urine Culture - Preliminary Urine,Voided Gram Neg Bacilli Assessment and Plan (1) Urinary tract infection Current Visit: Yes Status: Acute Code(s): N39.0 - URINARY TRACT INFECTION, SITE NOT SPECIFIED SNOMED Code(s): 54387049 Plan: 1patient presented to hospital with mental status changes in this patient with a significant history of alcoholism now running a low-grade fever did have significantly positive UA likely the source of her fever patient currently do not have any other obvious focus of infection chest x-ray reported negative abdominal soft on clinical examination no evidence of any cellulitis or neck rigidity. 2patient did have resolution of her fever urine is growing gram-negative with sensitivities pending 3patient will be treated with Rocephin 2 g daily while waiting for the culture to finalize. Dictation was produced using [employer] dictation software. please excuse any gr ammatical, word or spelling errors. Time with Patient: Less than 30
--- NOTE | 2024-04-25 20:35 | P.PN ---
Subjective This is a pleasant 73 years old female with past medical history of alcohol use disorder and other medical problems as below Presents from [facility] for alcohol use and possible suicidal ideation Patient is awake alert currently states that she is complaining from back pain. As per transfer papers patient was called police for her twice when they came with EMS she was heavily intoxicated, and when they came the second time she was in the same position also and deconditioned and she was petitioned to the hospital. Patient currently awake alert, she states she drinks 2 pints every week and she drinks 2 days/week each day she drinks 1 point however it was mentioned in the transfer paper that she drinks daily. She denies smoking or illicit drugs She states she has good appetite no abdominal pain or vomiting She has 1 loose stool yesterday no blood She denies urinary complaint or change in frequency or dysuria She denies headache dizziness weakness numbness She denies chest pain dyspnea or coughing Patient hemodynamically stable and afebrile She has unremarkable CBC, BMP, LFTs. She is mildly tachycardic. Hemoglobin 10.6. CT of the brain at the transfer paper report reviewed and it was no acute process The report of chest x-ray at the transfer paper also showing no acute cardiopulmonary process 04/24 Patient is more sleepy this morning. Last night she got extra dose of Ativan for anxiety and also started on gabapentin, earlier it was easier to wake up. Currently she woke up to verbal and tactile stimuli but go back to sleep right away. Patient herself could not tell if she complains from anything. Abdomen soft and no tenderness. She has been a lot more than 400, recommend to check a bladder scan and urine analysis and urine culture Also will send blood culture and inflammatory markers Will check chest x-ray Will order CT of the brain Other than that patient has no leukocytosis. But she has low-grade fever. BMP still pending We lowered gabapentin dose down to 100 mg. Patient ate little bit, no significant bowel movement. No obvious rash 04/25 Patient remains confused but more calm with sedative given. Seroquel 50 mg at night ordered She had fever 3 days ago and workup showing acute UTI. Patient currently on ceftriaxone pending culture results Renal ultrasound showing bilateral renal cysts with internal echoes suspicious for debris's, this required repeat ultrasound in 3 months. Also it shows 8.9 cm cystic pelvic lesion which extends into the left endometrium could be benign ovarian epithelial neoplasm. Will require vaginal ultrasound Neurology on the case, most likely patient has metabolic encephalopathy Active Medications Generic Name Dose Route Start Last Admin Trade Name Freq PRN Reason Stop Dose Admin Acetaminophen 325 mg 04/24/24 19:30 04/24/24 21:35 Acetaminophen Tab 325 Mg Tab PO 325 mg Q6HR PRN Administration Fever and/ or Pain Amlodipine Besylate 5 mg 04/24/24 09:00 04/25/24 09:58 Amlodipine 5 Mg Tab PO 5 mg DAILY RASHAAD Administration Apixaban 5 mg 04/23/24 21:00 04/25/24 09:58 Apixaban 5 Mg Tab PO 5 mg BID RASHAAD Administration Protocol Aspirin 81 mg 04/24/24 09:00 04/25/24 09:58 Aspirin 81 Mg PO 81 mg DAILY RASHAAD Administration Atorvastatin Calcium 20 mg 04/23/24 21:00 04/24/24 21:35 Atorvastatin 20 Mg Tab PO 20 mg HS RASHAAD Administration Chlordiazepoxide HCl 50 mg 04/23/24 06:42 Chlordiazepoxide 25 Mg Cap PO Q4HR PRN Ciwa 6 To 7 Famotidine 20 mg 04/23/24 21:00 04/25/24 09:58 Famotidine 20 Mg Tab PO 20 mg BID RASHAAD Administration Gabapentin 100 mg 04/24/24 16:00 04/25/24 15:51 Gabapentin 100 Mg Cap PO Not Given TID RASHAAD Sodium Chloride 1,000 mls @ 75 mls/hr 04/23/24 06:45 04/25/24 20:12 Saline 0.9% IV Not Given .[id number] RASHAAD Ceftriaxone Sodium 2 gm/ 50 mls @ 100 mls/hr 04/24/24 13:15 04/25/24 09:58 Sodium Chloride IVPB 100 mls/hr Q24HR RASHAAD Administration Protocol Lorazepam 1 mg 04/23/24 06:42 04/23/24 16:42 Lorazepam 2 Mg/Ml Inj IV 1 mg Q2HR PRN Administration CIWA 8 or 9 Lorazepam 1 mg 04/23/24 06:42 Lorazepam 2 Mg/Ml Inj IV Q1HR PRN CIWA 10 to 15 Naloxone HCl 0.2 mg 04/23/24 06:43 Naloxone 0.4 Mg/Ml 1 Ml Vial IV Q2M PRN Opioid Reversal Naltrexone HCl 50 mg 04/24/24 21:00 04/24/24 21:34 Naltrexone Hcl 50 Mg Tab PO 50 mg HS RASHAAD Administration Ondansetron HCl 4 mg 04/23/24 06:43 Ondansetron 4 Mg/2 Ml Vial IVP Q8HR PRN Nausea And Vomiting Pantoprazole Sodium 40 mg 04/23/24 09:00 04/25/24 09:58 Pantoprazole 40 Mg Tablet PO 40 mg DAILY RASHAAD Administration Quetiapine Fumarate 50 mg 04/24/24 21:00 04/24/24 21:35 Quetiapine 50 Mg Tab PO 50 mg HS RASHAAD Administration Thiamine HCl 100 mg 04/24/24 09:00 04/25/24 09:58 Thiamine 100 Mg Tab PO 100 mg DAILY RASHAAD Administration Objective - Vital Signs Vital signs: Vital Signs Temp 98.6 F 04/25/24 13:50 Pulse 103 H 04/25/24 13:50 Resp 17 04/25/24 13:50 BP 136/88 04/25/24 13:50 Pulse Ox 93 L 04/25/24 13:50 FiO2 Intake & Output 04/24/24 04/25/24 04/25/24 18:59 06:59 18:59 Output Total 1726 950 Balance -1726 -950 Output: Urine 1075 950 Post Void Residual 651 Other: Voiding Method Indwelling Catheter Indwelling Catheter - Exam -GENERAL: The patient is more drowsy although she wakes up to stimuli she go back to sleep thereafter 3, not in any acute distress. Well developed, well n ourished. HEENT: Pupils are round and equally reacting to light. EOMI. No scleral icterus. No conjunctival pallor. Normocephalic, atraumatic. No pharyngeal erythema. No thyromegaly. CARDIOVASCULAR: S1 and S2 present. No murmurs, rubs, or gallops. PULMONARY: Chest is clear to auscultation, no wheezing , no crackles. ABDOMEN: Soft, nontender, nondistended, normoactive bowel sounds. No palpable o rganomegaly. MUSCULOSKELETAL: No joint swelling or deformity. EXTREMITIES: No cyanosis, clubbing, or pedal edema. NEUROLOGICAL: Gross neurological examination did not reveal any focal deficits. SKIN: No rashes. no petechiae. - Labs CBC & Chem 7: 04/24/24 03:16 04/24/24 03:16 Labs: Microbiology - Last 24 Hours (Table) 04/24/24 12:16 Urine Culture - Preliminary Urine,Voided Gram Neg Bacilli Assessment and Plan Assessment: Altered mental status, most likely metabolic/toxic encephalopathy. Acute urinary tract infection Bilateral renal cyst with debris's require repeat ultrasound in 3 months. Alcohol use disorder at risk of alcohol withdrawal Possible depression, possible suicidal ideation, however patient currently denies. Patient was petitioned this by PD Chronic back pain in the lower lumbar region Gastroesophageal reflux disease Hypertension Hard of hearing Difficulty taking care of herself Hyperlipidemia Bilateral lower extremity DVT on Eliquis Plan: Continue ceftriaxone and follow-up urine culture Patient will benefit from neurological evaluation which could be done inpatient or outpatient. She will need a repeat renal ultrasound in 3 months Also patient will benefit from gynecological evaluation. Patient may benefit from vaginal ultrasound Neurology on the case, unlikely to be stroke or intracranial infection. Emery bourgeois Consult infectious disease team and neurologist Continue with CIWA protocol Continue with thiamine Continue with gentle hydration, 75 mL/h Psychiatry team consult Lower dose of gabapentin. 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 Continue same treatment. Continue with symptomatic treatment. Resume home medication. Monitor labs and vitals. DVT and GI prophylaxis. Further recommendations as per clinical course of the patient DVT prophylaxis: Eliquis GI Prophylaxis: Pepcid PT/OT: Pending Prognosis is guarded
--- NOTE | 2024-04-25 22:14 | US ---
EXAMINATION TYPE: US pelvic complete DATE OF EXAM: 04/25/2024 COMPARISON: 08/09/2017 CLINICAL INDICATION: Female, 73 years old with history of Left a detailed cystic mass; left adnexal m ass seen yesterday, patient has had a cyst since 2018, causes her no pain, patient here for alcohol w ithdrawal TECHNIQUE: TA Transabdominal grayscale sonographic images of the pelvis were acquired. Could not fill bladder. Soria svaginal sonographic images were not an option for this patient FINDINGS: Date of LMP: 20 years ago EXAM MEASUREMENTS: Uterus: N/A Endometrial Stripe: N/A Right Ovary: N/A Left Ovary: N/A Patient has Cat cath 1. Uterus: Obscured by overlying bowel gas 2. Endometrium: Obscured by overlying bowel gas 3. Right Ovary: Obscured by overlying bowel gas 4. Left Ovary: No normal ovary tissue seen at or around the large cystic structure 5. Bilateral Adnexa: large 8.2 x 8.5 x 8.0cm anechoic lesion within left adnexa. Measured 5.9 cm rosenda k in 2018. 6. Posterior cul-de-sac: wnl IMPRESSION: 1. Suboptimal exam as the bladder is collapsed from indwelling Cat catheter. 2. We do visualize the patient's known left adnexal cyst. Currently measuring up to 8.5 cm versus 5.9 cm back in 2018. Recommend outpatient referral to [facility] for any future surveillance. 3. Otherwise, other pelvic structures were not adequately assessed. [facility], , 04/25/2024 10:12 PM
--- NOTE | 2024-04-26 13:44 | P.PN ---
Subjective Progress Note Date: 04/26/24 Principal diagnosis: Reason for follow-up is a urinary tract infection Patient is a 73-year-old female with a past medical history significant for hypertension reflux heavy alcohol abuse patient initially was taken to the [facility] by the EMS who were called in twice to the home for a wellness check patient was noted to be markedly intoxicated and have a ground-level fall at home, patient did have a fever probably this consultation. On today's evaluation that is 04/26/2024, Patient is afebrile patient is currently on room air and denies having any shortness of breath, the patient denies any chest pain or cough, the patient denies any nausea vomiting did not have any abdominal pain and no diarrhea mention feeling better. No new lab has been obtained today urine with an E. coli that is a sensitive to ceftriaxone Objective - Vital Signs Vital signs: Vital Signs Temp 98.2 F 04/26/24 07:14 Pulse 96 04/26/24 07:45 Resp 15 04/26/24 07:45 BP 122/75 04/26/24 07:14 Pulse Ox 96 04/26/24 07:14 FiO2 Intake & Output 04/25/24 04/26/24 04/26/24 18:59 06:59 18:59 Output Total 350 Balance -350 Output: Urine 350 Other: Voiding Method Indwelling Catheter Indwelling Catheter Indwelling Catheter - Exam GENERAL DESCRIPTION: An elderly female lying in bed in no distress RESPIRATORY SYSTEM: Unlabored breathing , decreased breath sounds at bases HEART: S1 S2 regular rate and rhythm , ABDOMEN: Soft , no tenderness EXTREMITIES: No edema feet - Labs CBC & Chem 7: 04/24/24 03:16 04/24/24 03:16 Labs: Microbiology - Last 24 Hours (Table) 04/24/24 12:16 Urine Culture - Preliminary Urine,Voided Escherichia coli 04/24/24 10:52 Blood Culture - Preliminary Blood Assessment and Plan (1) Urinary tract infection Current Visit: Yes Status: Acute Code(s): N39.0 - URINARY TRACT INFECTION, SITE NOT SPECIFIED SNOMED Code(s): 09343476 Plan: 1patient presented to hospital with mental status changes in this patient with a significant history of alcoholism now running a low-grade fever did have significantly positive UA likely the source of her fever patient currently do not have any other obvious focus of infection chest x-ray reported negative abdominal soft on clinical examination no evidence of any cellulitis or neck rigidity. 2patient did have resolution of her fever urine is growing E. coli that is sensitive to ceftriaxone 3patient will be treated with Rocephin 2 g daily while inpatient finishing therapy with oral Ceftin x 7 days Dictation was produced using [employer] dictation software. please excuse any grammatical, word or spelling errors. Time with Patient: Less than 30
[2024-04-26] MEDS: ALPRAZolam 0.5 MG TAB PO PRN (16:12)
--- NOTE | 2024-04-27 04:52 | P.PN ---
Subjective This is a pleasant 73 years old female with past medical history of alcohol use disorder and other medical problems as below Presents from [facility] for alcohol use and possible suicidal ideation Patient is awake alert currently states that she is complaining from back pain. As per transfer papers patient was called police for her twice when they came with EMS she was heavily intoxicated, and when they came the second time she was in the same position also and deconditioned and she was petitioned to the hospital. Patient currently awake alert, she states she drinks 2 pints every week and she drinks 2 days/week each day she drinks 1 point however it was mentioned in the transfer paper that she drinks daily. She denies smoking or illicit drugs She states she has good appetite no abdominal pain or vomiting She has 1 loose stool yesterday no blood She denies urinary complaint or change in frequency or dysuria She denies headache dizziness weakness numbness She denies chest pain dyspnea or coughing Patient hemodynamically stable and afebrile She has unremarkable CBC, BMP, LFTs. She is mildly tachycardic. Hemoglobin 10.6. CT of the brain at the transfer paper report reviewed and it was no acute process The report of chest x-ray at the transfer paper also showing no acute cardiopulmonary process 04/24 Patient is more sleepy this morning. Last night she got extra dose of Ativan for anxiety and also started on gabapentin, earlier it was easier to wake up. Currently she woke up to verbal and tactile stimuli but go back to sleep right away. Patient herself could not tell if she complains from anything. Abdomen soft and no tenderness. She has been a lot more than 400, recommend to check a bladder scan and urine analysis and urine culture Also will send blood culture and inflammatory markers Will check chest x-ray Will order CT of the brain Other than that patient has no leukocytosis. But she has low-grade fever. BMP still pending We lowered gabapentin dose down to 100 mg. Patient ate little bit, no significant bowel movement. No obvious rash 04/25 Patient remains confused but more calm with sedative given. Seroquel 50 mg at night ordered She had fever 3 days ago and workup showing acute UTI. Patient currently on ceftriaxone pending culture results Renal ultrasound showing bilateral renal cysts with internal echoes suspicious for debris's, this required repeat ultrasound in 3 months. Also it shows 8.9 cm cystic pelvic lesion which extends into the left endometrium could be benign ovarian epithelial neoplasm. Will require vaginal ultrasound Neurology on the case, most likely patient has metabolic encephalopathy 04/26 Patient more awake and comfortable She remains on antibiotics for UTI She has bilateral complex renal cyst Also she has a large ovarian cyst Objective - Vital Signs Vital signs: Vital Signs Temp 98.2 F 04/26/24 07:14 Pulse 96 04/26/24 07:45 Resp 15 04/26/24 07:45 BP 122/75 04/26/24 07:14 Pulse Ox 96 04/26/24 07:14 FiO2 Intake & Output 04/25/24 04/26/24 04/26/24 18:59 06:59 18:59 Output Total 350 Balance -350 Output: Urine 350 Other: Voiding Method Indwelling Catheter Indwelling Catheter Indwelling Catheter - Exam -GENERAL: The patient is more drowsy although she wakes up to stimuli she go back to sleep thereafter 3, not in any acute distress. Well developed, well nourished. HEENT: Pupils are round and equally reacting to light. EOMI. No scleral icterus. No conjunctival pallor. Normocephalic, atraumatic. No pharyngeal erythema. No thyromegaly. CARDIOVASCULAR: S1 and S2 present. No murmurs, rubs, or gallops. PULMONARY: Chest is clear to auscultation, no wheezing , no crackles. ABDOMEN: Soft, nontender, nondistended, normoactive bowel sounds. No palpable organomegaly. MUSCULOSKELETAL: No joint swelling or deformity. EXTREMITIES: No cyanosis, clubbing, or pedal edema. NEUROLOGICAL: Gross neurological examination did not reveal any focal deficits. SKIN: No rashes. no petechiae. - Labs CBC & Chem 7: 04/24/24 03:16 04/24/24 03:16 Labs: Microbiology - Last 24 Hours (Table) 04/24/24 12:16 Urine Culture - Preliminary Urine,Voided Escherichia coli 04/24/24 10:52 Blood Culture - Preliminary Blood Assessment and Plan Assessment: Altered mental status, most likely metabolic/toxic encephalopathy. Acute urinary tract infection Bilateral renal cyst with debris's require repeat ultrasound in 3 months. Alcohol use disorder at risk of alcohol withdrawal Possible depression, possible suicidal ideation, however patient currently d enies. Patient was petitioned this by PD Chronic back pain in the lower lumbar region Gastroesophageal reflux disease Hypertension Hard of hearing Difficulty taking care of herself Hyperlipidemia Bilateral lower extremity DVT on Eliquis Plan: Continue ceftriaxone and follow-up urine culture Patient will benefit from urological evaluation which could be done inpatient or outpatient. She will need a repeat renal ultrasound in 3 months. Consult urology service Also patient will benefit from gynecological evaluation. enlarging ovarian cyst per Vaginal ultrasound. Consult [facility] Neurology on the case, unlikely to be stroke or intracranial infection. Consult infectious disease team and neurologist Continue with CIWA protocol Continue with thiamine Continue with gentle hydration, 75 mL/h Psychiatry team consult Lower dose of gabapentin. 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 Continue same treatment. Continue with symptomatic treatment. Resume home medication. Monitor labs and vitals. DVT and GI prophylaxis. Further recommendations as per clinical course of the patient DVT prophylaxis: Eliquis GI Prophylaxis: Pepcid PT/OT: Pending Prognosis is guarded
--- NOTE | 2024-04-27 07:55 | P.GSCN ---
History of Present Illness Consult date: 04/27/24 History of present illness: 73 yo female admitted to the hospital a few days ago with etoh withdrawal. A renal us was performed showing bilateral renal cysts possibly with internal echoes. She has been and is afebrile SHe is being treated for a uti. The cysts are not infected. She is unaware of these cysts. THere is no gross hematuria. Ther is no pain associated with these cysts. Review of Systems All systems: negative - Constitutional Denies fever, Denies weight loss - EENT Eyes: denies blurred vision Ears, nose, mouth and throat: Denies dysphagia - Cardiovascular Denies chest pain, Denies shortness of breath - Respiratory Denies cough, Denies 7 - Gastrointestinal Reports as per HPI - Genitourinary Genitourinary: Denies dysuria, Denies hematuria - Integumentary Denies rash, Denies unusual bruising - Neurological Denies headaches, Denies syncope - Hematologic/Lymphatic Denies easy bleeding, Denies easy bruising Past Medical History Past Medical History: GERD/Reflux, Hypertension Additional Past Medical History / Comment(s): stomach ulcers x2 in 2015, current anemia History of Any Multi-Drug Resistant Organisms: None Reported Past Surgical History: Back Surgery, Bariatric Surgery, Cholecystectomy, Orthopedic Surgery, Tonsillectomy Additional Past Surgical History / Comment(s): gastric sleeve in 2009, EGD, ORIF right arm. L2-L5 repair 2022. Past Anesthesia/Blood Transfusion Reactions: No Reported Reaction Past Psychological History: No Psychological Hx Reported Smoking Status: Never smoker Past Alcohol Use History: Occasional Past Drug Use History: None Reported - Past Family History Mother Family Medical History: Cancer Additional Family Medical History / Comment(s): breast Medications and Allergies Home Medications Medication Instructions Recorded Confirmed Type Mirabegron [Myrbetriq] 25 mg PO DAILY 03/16/24 04/23/24 History Pantoprazole [Protonix] 40 mg PO DAILY 03/16/24 04/23/24 History Aspirin 81 mg PO DAILY tab 03/20/24 04/23/24 Rx Atorvastatin [Lipitor] 20 mg PO HS tab 03/20/24 04/23/24 Rx Zolpidem [Ambien] 5 mg PO HS PRN #2 tab 03/20/24 04/23/24 Rx Apixaban [Eliquis] 5 mg PO BID 04/23/24 04/23/24 History Omeprazole [PriLOSEC] 20 mg PO BID 04/23/24 04/23/24 History amLODIPine [Norvasc] 5 mg PO DAILY 04/23/24 04/23/24 History Allergies Allergy/AdvReac Type Severity Reaction Status Date / Time No Known Allergies Allergy Verified 04/23/24 09:49 Surgical - Exam Vital Signs Temp Pulse Resp BP Pulse Ox 97.8 F 114 H 16 145/86 96 04/23/24 06:27 04/23/24 06:27 04/23/24 06:27 04/23/24 06:27 04/23/24 06:27 - General well developed, well nourished, no distress - Eyes normal ocular movement, no icteric - ENT no hearing loss, no congestion - Neck no masses, trachea midline - Respiratory normal respiratory effort, clear to auscultation - Abdomen Abdomen: soft, non tender, no guarding, no rigid, no rebound - Integumentary no rash, no abnormal pigmentation - Neurologic no disoriented, no combative - Psychiatric oriented to time, oriented to person, oriented to place, speech is normal, memory intact Results - Labs 04/24/24 03:16 04/24/24 03:16 Microbiology - Last 24 Hours (Table) 04/24/24 10:52 Blood Culture - Preliminary Blood 04/24/24 12:16 Urine Culture - Preliminary Urine,Voided Escherichia coli - Imaging US - kidney/bladder: report reviewed, image reviewed Assessment and Plan Assessment: Impression: bilateral class two renal cysts. uti . etoh withdrawal Recommnedations: the patient will need a fu us or a ct scan with and without contrast in 3-6 mos
[2024-04-27 08:07] VITALS: BP 137/94; PULSE 88; RESP 18; TEMP 97.7
[2024-04-27 08:38] LABS: Basophils # (A) 0.06 X 10*3/uL (0.00-0.10); Basophils % (A) 1.1 %; Eosinophils # (A) 0.42 X 10*3/uL (0.04-0.35); Eosinophils % (A) 7.9 %; HCT 29.8 % (37.2-46.3); HGB 9.7 g/dL (12.0-15.0); Lymphocytes # (A) 1.59 X 10*3/uL (0.90-5.00); Lymphocytes % (A) 29.8 %; MCH 31.3 pg (27.0-32.0); MCHC 32.6 g/dL (32.0-37.0); MCV 96.1 FL (80.0-97.0); Mean Platelet Volume 10.4 FL (9.5-12.2); Monocytes # (A) 0.49 X 10*3/uL (0.20-1.00); Monocytes % (A) 9.2 %; NRBC Per 100 WBC 0 X 10*3/uL (0.00-0.01); Neutrophils # (A) 2.75 X 10*3/uL (1.80-7.70); Neutrophils % (A) 51.4 %; Platelet Count 464 X 10*3/uL (140-440); RDW 17.2 % (11.5-14.5); WBC 5.34 X 10*3/uL (4.50-10.00)
[2024-04-27 08:50] LABS: BUN/Creat Ratio 10.43 Ratio (12.00-20.00); Blood Urea Nitrogen 7.3 mg/dL (9.0-27.0); Calcium 8.2 mg/dL (8.7-10.3); Carbon Dioxide 27.4 mmol/L (21.6-31.8); Chloride 108 mmol/L (96-109); Glucose 74 mg/dL (70-110); Potassium 3.8 mmol/L (3.5-5.5); Sodium 142 mmol/L (135-145)
[2024-04-27] MEDS: ACETAMINOPHEN TAB 325 MG TAB PO PRN (11:55)
[2024-04-27] MEDS: TAMSULOSIN 0.4 MG CAP.ER.24H PO STA (15:23)
--- NOTE | 2024-04-27 20:49 | P.PN ---
Subjective Progress Note Date: 04/27/24 Principal diagnosis: Reason for follow-up is a urinary tract infection Patient is a 73-year-old female with a past medical history significant for hypertension reflux heavy alcohol abuse patient initially was taken to the [facility] by the EMS who were called in twice to the home for a wellness check patient was noted to be markedly intoxicated and have a ground-level fall at home, patient did have a fever probably this consultation. On today's evaluation that is 04/27/2024, patient has been afebrile, patient is breathing comfortably and is currently on room air, patient denies having any significant cough no chest pain, patient denies nausea vomiting or diarrhea and no abdominal pain, patient mention feeling better wants to go home. The patient did have white count of 5.34 creatinine 0.7 urine with an E. coli sensitive to Rocephin Objective - Vital Signs Vital signs: Vital Signs Temp 97.7 F 04/27/24 08:00 Pulse 88 04/27/24 08:00 Resp 18 04/27/24 08:00 BP 137/94 04/27/24 08:00 Pulse Ox 94 L 04/27/24 08:00 FiO2 Intake & Output 04/26/24 04/27/24 04/27/24 18:59 06:59 18:59 Intake Total 120 Output Total 750 1625 Balance -750 -1505 Intake: Oral 120 Output: Urine 750 1625 Other: Voiding Method Indwelling Catheter Indwelling Catheter Indwelling Catheter # Bowel Movements 1 - Exam GENERAL DESCRIPTION: An elderly female lying in bed in no distress RESPIRATORY SYSTEM: Unlabored breathing , decreased breath sounds at bases HEART: S1 S2 regular rate and rhythm , ABDOMEN: Soft , no tenderness EXTREMITIES: No edema feet - Labs CBC & Chem 7: 04/27/24 06:05 04/27/24 06:05 Labs: Abnormal Lab Results - Last 24 Hours (Table) 04/27/24 04/27/24 Range/Units 06:05 06:05 RBC 3.10 L (4.10-5.20) X 10*6/uL Hgb 9.7 L (12.0-15.0) g/dL Hct 29.8 L (37.2-46.3) % RDW 17.2 H (11.5-14.5) % Plt Count 464 H (140-440) X 10*3/uL Eosinophils # 0.42 H (0.04-0.35) X 10*3/uL BUN 7.3 L (9.0-27.0) mg/dL BUN/Creatinine Ratio 10.43 L (12.00-20.00) Ratio Calcium 8.2 L (8.7-10.3) mg/dL Microbiology - Last 24 Hours (Table) 04/24/24 10:52 Blood Culture - Preliminary Blood 04/24/24 12:16 Urine Culture - Preliminary Urine,Voided Escherichia coli Assessment and Plan (1) Urinary tract infection Status: Acute Code(s): N39.0 - URINARY TRACT INFECTION, SITE NOT SPECIFIED SNOMED Code(s): 13254527 Plan: 1patient presented to hospital with mental status changes in this patient with a significant history of alcoholism now running a low-grade fever did have significantly positive UA likely the source of her fever patient currently do not have any other obvious focus of infection chest x-ray reported negative abdominal soft on clinical examination no evidence of any cellulitis or neck rigidity. 2patient did have resolution of her fever urine is growing E. coli that is sensitive to ceftriaxone 3patient has shown clinical improvement with Rocephin 2 g daily, plan is to finish therapy with oral Ceftin x 7 days on discharge Dictation was produced using [employer] dictation software. please excuse any grammatical, word or spelling errors. Time with Patient: Less than 30
--- NOTE | 2024-05-04 05:04 | P.DS ---
Providers Date of admission: 04/23/24 06:44 Expected date of discharge: 04/27/24 Attending physician: Yulisa Gonzales Consults: 04/23/24 11:37 Consult Physician Routine Consulting Provider: Osman Allen Consult Reason/Comments: alc, depressed, possible SI Do you want consulting provider notified?: Yes 04/24/24 10:41 Consult Physician Urgent Consulting Provider: Javier Almeida Consult Reason/Comments: fever Do you want consulting provider notified?: Yes 04/24/24 10:46 Consult Physician Urgent Consulting Provider: Solo Trujillo Consult Reason/Comments: ams Do you want consulting provider notified?: Yes 04/27/24 04:49 Consult Physician Routine Consulting Provider: Shan Gutierrez Consult Reason/Comments: bilateral kidney cysts with echogenic center Do you want consulting provider notified?: Yes, Notify in am 04/27/24 04:50 Consult Physician Routine Consulting Provider: Selam Lino Consult Reason/Comments: enlarging ovarian cysts Do you want consulting provider notified?: Yes, Notify in am Primary care physician: Kaleb Nicolas Hospital Course: Final diagnosis Altered mental status, most likely metabolic/toxic encephalopathy. Acute urinary tract infection, present on admission with E. coli Bilateral renal cyst with debris's require repeat ultrasound in 3 months. Alcohol use disorder at risk of alcohol withdrawal depression, reports of suicidal ideation, however patient currently denies. Patient was petitioned this by PD and cleared by psychiatry Chronic back pain in the lower lumbar region Gastroesophageal reflux disease Hypertension Hard of hearing Difficulty taking care of herself Hyperlipidemia Bilateral lower extremity DVT on Eliquis Discharge disposition Patient is being discharged in a stable condition with guarded prognosis to home with home care. Patient will follow-up with Dr. Nicolas in the outpatient setting upon discharge. Patient is to continue with current medications and outpatient follow-up with urology as scheduled. Patient to continue a short course of Ceftin on discharge. Total time taken is greater than 35 minutes. Hospital course This is a 73-year-old female who was recently admitted from [facility] with altered mental status likely toxic/metabolic encephalopathy with urinary tract infection along with alcohol use disorder. Patient maintained on CIWA protocol with multiple consultations following including psychiatry as there were comments of suicidal ideation and has been cleared recommending follow-up with primary care provider and [facility] outpatient. Patient maintained on IV antibiotics and will transition to oral Ceftin for E. coli urinary tract infection on admission. Patient was evaluated by physical therapy recommending rehab and patient is requesting to go home. Home care is being arranged and patient reports she has support at the home. Please refer to other consultation notes for further HPI. Currently no reports of chest pain, shortness of breath, or palpitations. Patient is afebrile. No reports of nausea or vomiting and patient is tolerating diet. Patient will be discharged home today. Guarded prognosis and high risk for readmissions given continued alcohol use and significant comorbidities. Physical exam: Gen: This is a 73-year-old female who is awake, alert and oriented x 3, well- developed, elderly appearing HEENT: Head is atraumatic, normocephalic. Pupils equal, round. Sclerae is anicteric. NECK: Supple. No JVD. No lymphadenopathy. No thyromegaly. LUNGS: Clear to auscultation. No wheezes or rhonchi. No intercostal retractions. HEART: Regular rate and rhythm. No murmur. ABDOMEN: Soft. Bowel sounds are present. No masses. No tenderness. EXTREMITIES: No pedal edema. No calf tenderness. NEUROLOGICAL: Patient is awake, alert and oriented x3. Cranial nerves 2 through 12 are grossly intact. Diffusely weak Please refer to medication reconciliation sheet for a list of medications. The impression and plan of care has been dictated by Minoo Burch, Nurse Practitioner as directed. Dr. Oswaldo MD I have performed a history and examination and MDM of this patient, discussed the same with the dictator, and agree with the dictator's assessment and plan as written ,documented as a scribe. Based on total visit time, I have performed more than 50% of the visit. Patient Condition at Discharge: Fair Plan - Discharge Summary New Discharge Prescriptions: New Gabapentin [Neurontin] 100 mg PO TID #60 cap QUEtiapine [SEROquel] 50 mg PO HS #30 tab cefuroxime axetiL [Ceftin] 500 mg PO BID 7 Days #14 tab Naltrexone HCl [Revia] 50 mg PO HS #30 tab Acetaminophen Tab [Tylenol] 325 mg PO Q6HR PRN tab PRN Reason: Mild Pain Or Fever > 100.5 Thiamine [Vitamin B-1] 100 mg PO DAILY #30 tab Tamsulosin [Flomax] 0.4 mg PO DAILY #7 cap Continue Pantoprazole [Protonix] 40 mg PO DAILY Aspirin 81 mg PO DAILY tab amLODIPine [Norvasc] 5 mg PO DAILY Apixaban [Eliquis] 5 mg PO BID Mirabegron [Myrbetriq] 25 mg PO DAILY Atorvastatin [Lipitor] 20 mg PO HS tab Omeprazole [PriLOSEC] 20 mg PO BID Discontinued Zolpidem [Ambien] 5 mg PO HS PRN #2 tab PRN Reason: Insomnia Discharge Medication List Mirabegron [Myrbetriq] 25 mg PO DAILY 03/16/24 [History] Pantoprazole [Protonix] 40 mg PO DAILY 03/16/24 [History] Aspirin 81 mg PO DAILY tab 03/20/24 [Rx] Atorvastatin [Lipitor] 20 mg PO HS tab 03/20/24 [Rx] Apixaban [Eliquis] 5 mg PO BID 04/23/24 [History] Omeprazole [PriLOSEC] 20 mg PO BID 04/23/24 [History] amLODIPine [Norvasc] 5 mg PO DAILY 04/23/24 [History] Acetaminophen Tab [Tylenol] 325 mg PO Q6HR PRN tab 04/27/24 [Rx] Gabapentin [Neurontin] 100 mg PO TID #60 cap 04/27/24 [Rx] Naltrexone HCl [Revia] 50 mg PO HS #30 tab 04/27/24 [Rx] QUEtiapine [SEROquel] 50 mg PO HS #30 tab 04/27/24 [Rx] Tamsulosin [Flomax] 0.4 mg PO DAILY #7 cap 04/27/24 [Rx] Thiamine [Vitamin B-1] 100 mg PO DAILY #30 tab 04/27/24 [Rx] cefuroxime axetiL [Ceftin] 500 mg PO BID 7 Days #14 tab 04/27/24 [Rx] Follow up Appointment(s)/Referral(s): Kaleb Nicolas MD [Primary Care Provider] - 1-2 days (Office is not answering at time of discharge. Please call for follow-up appointment.) Nurse,[facility] [NON-STAFF] - As Needed (*[facility] is now known as [facility] - [phone]) Tung Aceves MD [STAFF PHYSICIAN] - 6 Weeks (Office to call you and schedule an appotiment. ) Activity/Diet/Wound Care/Special Instructions: Activity limited until follow-up Follow-up with primary care provider on discharge Strongly recommend rehab Arranging for home care Avoid alcohol use and exposure to Discharge/Stand Alone Forms: AA Meetings [place], [facility] Resources, Outpatient Counseling, In Substance Abuse Facilities Discharge Disposition: HOME WITH HOME HEALTH SERVICES
== END 2024-04-27 16:14 | disposition home health service (06) | DRG 896 ==
LOC: EC 06:25 → 4SSUR 06:44
PROVIDERS: ADMIT Hospitalist; ATTEND Hospitalist
DX: F10.239 Alcohol dependence with withdrawal, unspecified (principal); G92.8 Other toxic encephalopathy; N39.0 Urinary tract infection, site not specified; N28.1 Cyst of kidney, acquired; G89.29 Other chronic pain; K21.9 Gastro-esophageal reflux disease without esophagitis; E78.5 Hyperlipidemia, unspecified; I10 Essential (primary) hypertension; F32.A Depression, unspecified; F41.9 Anxiety disorder, unspecified; N83.202 Unspecified ovarian cyst, left side; B96.20 Unspecified Escherichia coli [E. coli] as the cause of diseases classified elsewhere; M54.50 Low back pain, unspecified; H91.90 Unspecified hearing loss, unspecified ear; Y90.8 Blood alcohol level of 240 mg/100 ml or more; Z86.718 Personal history of other venous thrombosis and embolism; Z79.82 Long term (current) use of aspirin; Z79.01 Long term (current) use of anticoagulants; Z79.899 Other long term (current) drug therapy; Z87.11 Personal history of peptic ulcer disease; Z98.84 Bariatric surgery status
CPT/HCPCS: 36415; 70450; 71046; 76770; 76856; 80048; 80053; 81001; 82140; 82607; 84145; 84443; 85025; 87040; 87077; 87086; 87186; 96361; 96372; 96374; 96375; 96376; 99285